=== PATIENT | female | born 1960 | race Caucasian/White ===

== ENCOUNTER → 2017-11-02 07:11 | Outpatient (CLI) | payer MEDICARE, MEDICAID, SELFPAY ==
[2017-11-02 08:37] LABS: Creatinine Urine Random 265.7 mg/dL
[2017-11-02 08:42] LABS: Microalbumin Urine Random 3.2 mg/dL (0-1.6)
[2017-11-02 08:46] LABS: Hemoglobin A1C% w Est Avg Glu 6.2 % (4.0-6.0)
[2017-11-02 08:53] LABS: Alanine Aminotransferase 21 IU/L (9-52); Albumin 4.1 g/dL (3.5-5.0); Albumin Globulin Ratio 1.4 (1.0-2.8); Alkaline Phosphatase 105 U/L (38-126); Aspartate Aminotransferase 12 IU/L (14-36); BUN Creatinine Ratio 31.7 (6-22); Bilirubin Total 0.4 mg/dL (0.2-1.3); Blood Urea Nitrogen 19 mg/dL (7-17); Calcium 9.6 mg/dL (8.4-10.2); Carbon Dioxide 30 mmol/L (22-32); Chloride 98 mmol/L (98-107); Estimated Glomerular Filt Rate > 60.0 mL/min (>60); Glucose 226 mg/dL (70-100); HEMOLYSIS < 15 (0-50); Potassium 4.6 mmol/L (3.4-5.1); Sodium 138 mmol/L (137-145); Total Protein 7.1 g/dL (6.3-8.2)
== END ==
PROVIDERS: PCP Internal Medicine; Visit Provider Internal Medicine
DX: G89.4 Chronic pain syndrome (principal); I10 Essential (primary) hypertension; E11.9 Type 2 diabetes mellitus without complications
CPT/HCPCS: 36415; 80053; 82043; 82570; 83036

== ENCOUNTER → 2017-11-25 12:12 | Outpatient (CLI) | payer MEDICARE, MEDICAID, SELFPAY ==
[2017-11-25 14:11] LABS: Campylobacter Not Detected (Not Detect); Clostridium difficile toxin AB Not Detected (Not Detect); Plesiomonsa shigelloides Not Detected (Not Detect); Salmonella Not Detected (Not Detect); Vibrio Not Detected (Not Detect); Vibrio cholerae Not Detected (Not Detect); Yersinia enterocolitica Not Detected (Not Detect)
[2017-11-25 14:12] LABS: Adenovirus F 40/41 Not Detected (Not Detect); Astrovirus Not Detected (Not Detect); Cryptosporidium Not Detected (Not Detect); Cyclospora cayetanensis Not Detected (Not Detect); Entamoeba histolytica Not Detected (Not Detect); Enteroaggregative E.coli Not Detected (Not Detect); Enteropathogenic E.coli Not Detected (Not Detect); Enterotoxigenic E.coli It/st Not Detected (Not Detect); Giardia lamblia Not Detected (Not Detect); Norovirus GI/GII Not Detected (Not Detect); Rotavirus A Not Detected (Not Detect); Shiga-like toxin-prod E.coli Not Detected (Not Detect); Shigella/Enteroinvasive E.coli Not Detected (Not Detect)
== END ==
PROVIDERS: Family Provider Internal Medicine; PCP Internal Medicine; Visit Provider Physician Assistant
DX: R19.7 Diarrhea, unspecified (principal)
CPT/HCPCS: 87507

== ENCOUNTER 2017-11-27 08:16 | Emergency (ER) | payer MEDICARE, MEDICAID, SELFPAY ==
[2017-11-27 08:24] VITALS: BP 186/97; PULSE 90; RESP 18; TEMP 36.1; O2SAT 97; BMI 52.4
--- NOTE | 2017-11-27 08:38 | ED.NAVMDI ---
HPI - Nausea/Vomiting/Diarrhea General Chief complaint: Nausea/Vomiting/Diarrhea Stated complaint: DIARRHEA, CANT KEEP ANYTHING DOWN Time Seen by Provider: 11/27/17 08:27 Source: patient Mode of arrival: ambulatory Limitations: no limitations History of Present Illness HPI Narrative: 57-year-old insulin-dependent diabetic female here for evaluation of approximately 10 days of diarrhea. Patient states that she has no nausea and no vomiting. She states that she has had diarrhea for the past 10 days. Multiple times a day. States she has tried Imodium for the 1st couple days and also has tried yogurt. She states that anything that she eats or drinks ?goes right through me? saw her primary doctor couple days ago for had stool studies performed does not know the results of these. No recent travel. No recent antibiotics. No fevers. No rashes. No new joint pain. No new medicines. Related Data Home Medications Medication Instructions Recorded Confirmed ASPIRIN (#ASPIRIN) 81 mg PO QDAY #0 08/27/11 LISINOPRIL (#ZESTRIL) 20 mg PO QDAY #0 08/27/11 metformin 1,000 mg PO BID #0 08/27/11 trazodone 150 mg PO HS #0 08/27/11 diclofenac sodium 50 mg PO BIDCC #0 01/01/17 hydrocodone-acetaminophen 0 tab PO #0 01/01/17 pioglitazone [Actos] 15 mg PO QDAY #0 01/01/17 pioglitazone [Actos] 30 mg PO QDAY #0 01/01/17 Allergies Allergy/AdvReac Type Severity Reaction Status Date / Time No Known Drug Allergies Allergy Verified 11/27/17 08:24 Review of Systems Constitutional Reports body ache(s) and Reports fatigue ENT Ears, Nose, Mouth, and Throat: Denies dysphagia Cardiovascular Denies chest pain and Denies dyspnea Respiratory Denies dyspnea Gastrointestinal Gastrointestinal: Denies abdominal pain, Denies melena, Denies change in bowel habits, Reports change in stool character, Denies constipation, Denies dysphagia, Reports diarrhea, Denies nausea and Denies vomiting Genitourinary Denies dysuria Musculoskeletal Denies abnormal gait, Denies myalgias and Denies arthralgias Integumentary/Breasts Denies lesions and Denies rash Neurologic Denies abnormal gait Endocrine Reports fatigue Hematologic/Lymphatic Denies easy bleeding and Denies easy bruising [facility] Social History Smoking Status: Current every day smoker Exam Initial Vital Signs Initial Vital Signs: Vital Signs Temperature 97.0 F L 11/27/17 08:24 Pulse Rate 90 11/27/17 08:24 Respiratory Rate 18 11/27/17 08:24 Blood Pressure 186/97 H 11/27/17 08:24 Pulse Oximetry 97 11/27/17 08:24 Const General: cooperative, healthy appearing and comfortable [facility] Head: normal to inspection, normocephalic and atraumatic Resp Effort & Inspection: normal respiratory effort Auscultation: clear to auscultation bilaterally Cardio Rate: regular rate Rhythm: regular rhythm GI Inspection: non-distended Palpation: soft, No firm, No guarding, No rigid and No tender Skin Lesions: no lesions Rashes: no rashes Neuro General: alert, awake and oriented x3 Extrem General: normal to inspection and full ROM Course Orders Ordered: Sodium Chloride (Normal Saline 0.9%) 1,000 mls @ 1,000 mls/hr IV BOLUS ONE Stop: 11/27/17 10:39 Last Admin: 11/27/17 09:47 Dose: 1,000 mls/hr Discontinued Medications Sodium Chloride (Normal Saline 0.9%) 1,000 mls @ 1,000 mls/hr IV BOLUS ONE Stop: 11/27/17 09:33 Last Infusion: 11/27/17 09:36 Dose: 0 mls/hr Admin: 11/27/17 08:42 Dose: 1,000 mls/hr Vital Signs - 8 hr 11/27/17 08:24 11/27/17 09:32 Temperature 97.0 F L 97.4 F L Pulse Rate 90 76 Respiratory Rate 18 18 Blood Pressure 186/97 H Blood Pressure [Left Arm] 153/86 H Pulse Oximetry 97 95 MDM - Nausea/Vomiting/Diarrhea MDM Narrative Medical decision making narrative: Patient is tolerating oral intake. Has a benign abdominal exam. Did urinate here in the emergency department. Has not had a bowel movement since being here in the emergency department. Received 2 L of normal saline through the IV and states she feels better. Reviewed the stool studies that was ordered by her primary doctor a couple days ago. No signs of bacterial infection. Will hold on any antibiotics for now. We did discuss the proper use of Imodium. We did discuss the importance of staying hydrated. She was given return precautions. She will call her primary doctor on Wednesday for follow-up. She expressed understanding and agreement with plan. Discharge Plan Departure Patient Disposition: Home, Self-Care Clinical Impression: Diarrhea Instructions: Diarrhea (Alternative Therapy), Diarrhea Activity Restrictions/Additional Instructions: Make sure you are increasing your fluid intake. Take the Imodium like we discussed and as directed from the packaging. Call your primary doctor on Wednesday for a follow-up. Return to the emergency department for any new symptoms, blood in her stool, fevers, vomiting, or any other new symptoms. Prescriptions: No Action ASPIRIN (#ASPIRIN) 81 mg PO QDAY Qty: 0 RF: 0 metformin 1,000 MG tablet extended release 24hr 1,000 mg PO BID Qty: 0 RF: 0 LISINOPRIL (#ZESTRIL) 20 mg PO QDAY Qty: 0 RF: 0 trazodone 150 MG tablet 150 mg PO HS Qty: 0 RF: 0 hydrocodone-acetaminophen 5 MG/325 MG tablet PO Qty: 0 RF: 0 pioglitazone [Actos] 15 MG tablet 15 mg PO QDAY Qty: 0 RF: 0 diclofenac sodium 50 MG tablet,delayed release (DR/EC) 50 mg PO BIDCC Qty: 0 RF: 0 pioglitazone [Actos] 30 MG tablet 30 mg PO QDAY Qty: 0 RF: 0
[2017-11-27] MEDS: SODIUM CHLORIDE 0.9% 1,000 ML 1000 ML IV ×2 (08:42→09:47)
[2017-11-27 09:32] VITALS: BP 153/86; PULSE 76; RESP 18; TEMP 36.3; O2SAT 95
--- NOTE | 2017-11-27 09:50 | PC.NURSE ---
Amb to [facility] to have diarrhea. Stable. 2nd bag of saline up per MD order and PT req. S/W pt about need to stay hydrated once dc'd.
[2017-11-27 10:41] VITALS: BP 136/51; PULSE 73; RESP 18; O2SAT 97
== END 2017-11-27 10:42 | disposition home or self-care (01) ==
PROVIDERS: Emergency Provider Emergency Medicine; Family Provider Physician Assistant; PCP Internal Medicine
DX: R19.7 Diarrhea, unspecified (principal)
CPT/HCPCS: 96360; 96361; 99283; 99284

== ENCOUNTER 2017-12-14 11:56 | Emergency (ER) | payer MEDICARE, MEDICAID, SELFPAY ==
[2017-12-14 12:08] VITALS: BP 172/80; PULSE 80; RESP 14; TEMP 36.6; O2SAT 97
[2017-12-14] MEDS: SODIUM CHLORIDE 0.9% 1,000 ML 1000 ML IV (12:47)
[2017-12-14 12:48] LABS: Add Manual Diff / Slide Review NO; Basophils Percent Auto 0.5 % (0-2); Eosinophils Percent Auto 1.6 % (2-4); Hematocrit 36.3 % (36-46); Hemoglobin 12.6 g/dL (12.0-16.0); Lymphocytes Percent Auto 25.9 % (25-40); Mean Corpuscular HGB Conc 34.8 % (30-36); Mean Corpuscular Hemoglobin 29.5 PG (26-34); Mean Corpuscular Volume 84.9 fL (80-100); Monocytes Percent Auto 8.2 % (3-14); Neutrophils Absolute Auto 6500 /uL (3000-5900); Neutrophils Percent Auto 63.8 % (50-75); Platelet Count 367 X10^3/uL (150-400); Red Blood Cell Count 4.27 X10^6/uL (4.0-5.2); Red Cell Distribution Width 13.2 % (11.6-14.8); White Blood Cell Count 10.2 X10^3/uL (4.5-11.0)
--- NOTE | 2017-12-14 12:52 | ED_ITS ---
HPI - Weakness General Chief complaint: Weakness Stated complaint: NAUSEA AND SWEATING, THINKS DEHYDRATED Time Seen by Provider: 12/14/17 12:39 Source: patient Mode of arrival: ambulatory Limitations: no limitations History of Present Illness HPI Narrative: 57-year-old female who was recently diagnosed with colitis/ enteritis who states that the diarrhea has resolved here for evaluation of nausea. Patient states she is not having any vomiting. Has had some episodes of sweating but no specific fevers. Is tolerating oral intake. She states she is urinating quite a bit because of all the fluids that she is drinking. Is able to tolerate food which does improve the nausea but then it returns shortly afterwards. Patient is not on any nausea medication at home. Related Data Home Medications Medication Instructions Recorded Confirmed aspirin 81 mg PO DAILY #0 08/27/11 12/14/17 lisinopril 20 mg PO DAILY #0 08/27/11 12/14/17 metformin 1,000 mg PO BID #0 08/27/11 12/14/17 trazodone 150 mg PO HS #0 08/27/11 12/14/17 diclofenac sodium 50 mg PO BIDCC #0 01/01/17 12/14/17 pioglitazone [Actos] 15 mg PO QDAY #0 01/01/17 12/14/17 pioglitazone [Actos] 30 mg PO QDAY #0 01/01/17 12/14/17 albuterol sulfate [Ventolin HFA] 1 - 2 puff INHALATION Q4-6H PRN 12/14/17 carisoprodol 1 tab PO BID PRN 12/14/17 12/14/17 diclofenac sodium [Voltaren] 1 applic TOPICAL DIRECTED 12/14/17 12/14/17 estradiol 1 mg PO DAILY 12/14/17 12/14/17 gabapentin 1 dose PO DIRECTED 12/14/17 12/14/17 hydrocodone-acetaminophen 1 tab PO TID PRN 12/14/17 12/14/17 hydroxyzine pamoate 1 cap PO TID PRN 12/14/17 12/14/17 meloxicam 15 mg PO DAILY 12/14/17 12/14/17 omeprazole 20 mg PO DAILY 12/14/17 12/14/17 simvastatin 20 mg PO DAILY 12/14/17 12/14/17 Previous Rx's Medication Instructions Recorded ondansetron [Zofran ODT] 4 mg PO Q6-8H PRN #20 tab 12/14/17 Allergies Allergy/AdvReac Type Severity Reaction Status Date / Time No Known Drug Allergies Allergy Verified 11/27/17 08:24 Review of Systems Constitutional Reports chills, Reports fever(s) (Subjective) and Denies poor appetite Cardiovascular Denies chest pain, Denies diaphoresis and Denies dyspnea Respiratory Denies dyspnea Gastrointestinal Gastrointestinal: Denies abdominal pain, Denies constipation, Denies diarrhea, Reports nausea and Denies vomiting Genitourinary Denies dysuria Musculoskeletal Denies myalgias and Denies arthralgias Neurologic Denies confusion Psychiatric Denies confusion [facility] Social History Smoking Status: Current every day smoker Exam Initial Vital Signs Initial Vital Signs: Vital Signs Temperature 97.9 F 12/14/17 12:08 Pulse Rate 80 12/14/17 12:08 Respiratory Rate 14 12/14/17 12:08 Blood Pressure 172/80 H 12/14/17 12:08 Pulse Oximetry 97 12/14/17 12:08 Const General: cooperative, healthy appearing, comfortable, well developed, well groomed, No acute distress and No anxious Orientation: alert, awake and oriented x3 HENMT Head: normal to inspection and normocephalic Mouth: oral mucosae normal Resp Effort & Inspection: normal respiratory effort Auscultation: clear to auscultation bilaterally Cardio Rate: regular rate Rhythm: regular rhythm Back/Spine/Pelvis Back: No CVA tenderness Skin General: no rashes or lesions noted Lesions: no lesions Rashes: no rashes Neuro General: alert, awake and oriented x3 Extrem General: normal to inspection Course Orders Ordered: ED Orders 12/14/17 12:20 Basic Metabolic Panel Stat Complete Blood Count AUTO DIFF Stat Discontinued Medications Sodium Chloride (Normal Saline 0.9%) 1,000 mls @ 1,000 mls/hr IV BOLUS ONE Stop: 12/14/17 13:39 Last Infusion: 12/14/17 13:31 Dose: 0 mls/hr Admin: 12/14/17 12:47 Dose: 1,000 mls/hr Vital Signs - 8 hr 12/14/17 12:08 12/14/17 13:31 Temperature 97.9 F Pulse Rate 80 82 Respiratory Rate 14 16 Blood Pressure 172/80 H 170/82 H Pulse Oximetry 97 97 MDM - Weakness Lab Data Attestation: I reviewed the patient's lab results. Result diagrams: 12/14/17 12:20 12/14/17 12:20 Lab Results 12/14/17 12/14/17 Range/Units 12:20 12:20 WBC 10.2 (4.5-11.0) X10^3/uL RBC 4.27 (4.0-5.2) X10^6/uL Hgb 12.6 (12.0-16.0) g/dL Hct 36.3 (36-46) % MCV 84.9 (80-100) fL MCH 29.5 (26-34) PG MCHC 34.8 (30-36) % RDW 13.2 (11.6-14.8) % Plt Count 367 (150-400) X10^3/uL Neut % (Auto) 63.8 (50-75) % Lymph % (Auto) 25.9 (25-40) % [place] % (Auto) 8.2 (3-14) % Eos % (Auto) 1.6 L (2-4) % Baso % (Auto) 0.5 (0-2) % Neut # (Auto) 6500 H (2509-6196) /uL Sodium 140 (137-145) mmol/L Potassium 3.7 (3.4-5.1) mmol/L Chloride 100 (98-107) mmol/L Carbon Dioxide 31 (22-32) mmol/L BUN 14 (7-17) mg/dL Creatinine 0.60 (0.52-1.04) mg/dL Estimated GFR > 60.0 (>60) mL/min BUN/Creatinine Ratio 23.3 H (6-22) Glucose 140 H (70-100) mg/dL Calcium 9.5 (8.4-10.2) mg/dL [facility] Narrative Medical decision making narrative: Patient is clinically not dehydrated. Has normal vital signs. Has been tolerating oral intake. Has no complaints other than the nausea and sweating. Patient does not have any nausea medication at home. Labs are unremarkable. Will send home with a prescription for nausea medication. She was given return precautions. Will hold on IV fluids for now. Patient expressed understanding and agreement with plan Discharge Plan Departure Patient Disposition: Home, Self-Care Clinical Impression: Nausea Discharge Date/Time: 12/14/17 13:32 Interventions: ED Discharge Assessment Last Done: 12/14/17 13:31 Instructions: Nausea (Alternative Therapy), DI for Nausea -- Adult Activity Restrictions/Additional Instructions: Continue all of your medications as directed. Continue to advance your diet like we discussed. Return to the emergency department for any new or worsening symptoms. Prescriptions: New ondansetron [Zofran ODT] 4 mg tablet,disintegrating 4 mg PO Q6-8H PRN (Reason: nausea and vomiting) Qty: 20 RF: 0 No Action aspirin 81 mg Tablet,Delayed Release (Dr/Ec) 81 mg PO DAILY Qty: 0 RF: 0 lisinopril 20 mg Tablet 20 mg PO DAILY Qty: 0 RF: 0 metformin 1,000 MG tablet extended release 24hr 1,000 mg PO BID Qty: 0 RF: 0 trazodone 150 MG tablet 150 mg PO HS Qty: 0 RF: 0 pioglitazone [Actos] 15 MG tablet 15 mg PO QDAY Qty: 0 RF: 0 diclofenac sodium 50 MG tablet,delayed release (DR/EC) 50 mg PO BIDCC Qty: 0 RF: 0 pioglitazone [Actos] 30 MG tablet 30 mg PO QDAY Qty: 0 RF: 0 carisoprodol 350 mg tablet 1 tab PO BID PRN (Reason: Spasms) RF: 0 gabapentin 600 mg tablet 1 dose PO DIRECTED RF: 0 hydrocodone-acetaminophen 5-325 mg tablet 1 tab PO TID PRN (Reason: Pain, Moderate) RF: 0 meloxicam 15 mg tablet 15 mg PO DAILY RF: 0 estradiol 1 mg tablet 1 mg PO DAILY RF: 0 simvastatin 20 mg tablet 20 mg PO DAILY RF: 0 omeprazole 20 mg capsule,delayed release(DR/EC) 20 mg PO DAILY RF: 0 albuterol sulfate [Ventolin HFA] 90 mcg/actuation HFA aerosol inhaler 1 - 2 puff Inhalation Q4-6H PRN (Reason: Shortness Of Breath) RF: 0 hydroxyzine pamoate 25 mg capsule 1 cap PO TID PRN (Reason: unknown) RF: 0 diclofenac sodium [Voltaren] 1 % gel 1 applic Topical DIRECTED RF: 0
[2017-12-14 12:55] LABS: BUN Creatinine Ratio 23.3 (6-22); Blood Urea Nitrogen 14 mg/dL (7-17); Calcium 9.5 mg/dL (8.4-10.2); Carbon Dioxide 31 mmol/L (22-32); Chloride 100 mmol/L (98-107); Estimated Glomerular Filt Rate > 60.0 mL/min (>60); Glucose 140 mg/dL (70-100); HEMOLYSIS < 15 (0-50); Potassium 3.7 mmol/L (3.4-5.1); Sodium 140 mmol/L (137-145)
[2017-12-14 13:31] VITALS: BP 170/82; PULSE 82; RESP 16; O2SAT 97
== END 2017-12-14 13:32 | disposition home or self-care (01) ==
PROVIDERS: Emergency Provider Emergency Medicine; Family Provider Physician Assistant; PCP Internal Medicine
DX: R11.0 Nausea (principal)
CPT/HCPCS: 36591; 80048; 85025; 96360; 99283; 99284

== ENCOUNTER → 2018-02-03 07:58 | Outpatient (CLI) | payer MEDICARE, MEDICAID, SELFPAY ==
[2018-02-03 09:20] LABS: Hemoglobin A1C% w Est Avg Glu 8.5 % (4.0-6.0)
[2018-02-03 09:49] LABS: Alanine Aminotransferase 20 IU/L (9-52); Albumin Globulin Ratio 1.3 (1.0-2.8); Alkaline Phosphatase 104 U/L (38-126); Aspartate Aminotransferase 26 IU/L (14-36); Bilirubin Total 0.3 mg/dL (0.2-1.3); Blood Urea Nitrogen 18 mg/dL (7-17); Calcium 9.4 mg/dL (8.4-10.2); Carbon Dioxide 30 mmol/L (22-32); Chloride 102 mmol/L (98-107); Estimated Glomerular Filt Rate > 60.0 mL/min (>60); Glucose 217 mg/dL (70-100); HEMOLYSIS < 15 (0-50); Potassium 4.1 mmol/L (3.4-5.1); Sodium 142 mmol/L (137-145)
== END ==
PROVIDERS: PCP Internal Medicine; Visit Provider Internal Medicine
DX: G89.4 Chronic pain syndrome (principal); J45.998 Other asthma; E11.9 Type 2 diabetes mellitus without complications
CPT/HCPCS: 36415; 80053; 83036

== ENCOUNTER → 2018-02-04 14:17 | Outpatient (CLI) | payer MEDICARE, MEDICAID, SELFPAY ==
--- NOTE | 2018-02-04 | DI.MRI.S_ITS ---
PROCEDURE: MR LUMBAR SPINE WO CON INDICATIONS: Low back pain radiating down both legs TECHNIQUE: Noncontrast sagittal T1 spin echo and T2 fast echo, sagittal STIR, axial T1 and T2 fast spin echo through the lumbar spine. In cases with scoliosis, additional coronal T2 fast spin echo may be performed. COMPARISON: [facility], MR, L-SPINE WITHOUT CONTRAST, 02/14/2016, 16:15. [facility], CR, L-SPINE 2-3 VIEWS, 03/13/2013, 10:35. FINDINGS: Image quality: Excellent. Alignment and Curvature: Grade 1 anterolisthesis is seen at L5-S1. Associated faintly seen bilateral pars defects are present. Bone Marrow: Marrow is of normal overall signal. No acute vertebral body compression fractures. Spinal Cord: Conus medullaris terminates at the L1 level. Visualized cord demonstrates normal signal and size. Paraspinous Soft Tissues: No paravertebral masses. T12-L1: Mild loss of disc height is seen. Loss of disc signal is seen. Moderate disc bulge is seen, which is eccentric left. There is a left foraminal disc protrusion present. There is at least moderate left-sided neural foraminal narrowing. No right-sided neural foraminal narrowing is seen. Mild central canal narrowing is seen. No significant change from the prior. L1-L2: Moderate loss of disc height is seen. Loss of disc signal is seen. Moderate disc bulge is seen, which is eccentric the left. There is a central/left disc protrusion seen. There is moderate left-sided and minimal to mild right-sided neural foraminal narrowing seen. Moderate central canal narrowing seen. Compared to 2016, these degenerative changes are similar. L2-L3: The disc height is well-preserved. Loss of disc signal is seen at this level. Mild generalized disc bulge is seen. There is mild to moderate left-sided and no right-sided neural foraminal narrowing seen. No significant central canal narrowing is seen. When comparison is made with the prior examination, these findings are similar. L3-L4: The disc height is well-preserved. Loss of disc signal is seen at this level. Mild to moderate disc bulge is seen. There is mild right-sided and no significant left-sided neural foraminal narrowing seen. Minimal central canal narrowing is seen. When comparison is made with the prior examination, these findings are similar. L4-L5: The disc height is well-preserved. Loss of disc signal is seen at this level. Moderate disc bulge is seen, which is eccentric to the right. Moderate facet joint hypertrophy is seen. There is moderate right-sided and mild to moderate left-sided neural foraminal narrowing. Mild central canal narrowing is seen. Stable from the prior study. L5-S1: Moderate loss of disc height is seen. Loss of disc signal is seen. Reactive marrow endplate changes are seen, which demonstrate mixed T1 weighted and T2-weighted signal, and are attributed to a combination of edema and fatty metaplasia (Modic type I and Modic type II changes). Mild grade 1 anterolisthesis is seen, with associated bilateral pars defects. At least moderate disc bulge is seen, which is eccentric to the left. Moderate facet joint hypertrophy is seen. Moderate to severe bilateral neural foraminal narrowing is seen, left worse than right. There is a degree of impingement seen upon the exiting nerve roots. These degenerative changes have progressed compared to the prior MRI. IMPRESSION: Multilevel lumbar spine degenerative change are seen, which are most prominent at L5-S1 level. The degenerative changes have progressed compared to the 2016 MRI at the L5-S1 level. Dictated by: Luis Pelletier M.D. on 02/04/2018 at 15:58 Approved by: Luis Pelletier M.D. on 02/04/2018 at 16:05
== END ==
PROVIDERS: Family Provider Physician Assistant; PCP Internal Medicine; Visit Provider Physical Medicine & Rehabilitation Pain Medicine
DX: M51.16 Intervertebral disc disorders with radiculopathy, lumbar region (principal); M51.17 Intervertebral disc disorders with radiculopathy, lumbosacral region; M54.5 Low back pain
CPT/HCPCS: 72148

== ENCOUNTER → 2018-03-16 07:47 | Outpatient (CLI) | payer MEDICARE, MEDICAID, SELFPAY ==
--- NOTE | 2018-03-16 | DI.MG.S_ITS ---
BILATERAL DIGITAL SCREENING MAMMOGRAM 3D/2D WITH CAD: 03/16/2018 CLINICAL: Routine screening. No prior exams were available for comparison. There are scattered fibroglandular elements in both breasts. Current study was also evaluated with a Computer Aided Detection (CAD) system. There are benign calcifications in both breasts. No significant masses, calcifications, or other findings are seen in either breast. IMPRESSION: There is no mammographic evidence of malignancy. A 1 year screening mammogram is recommended.(03/17/2019) This exam was interpreted at Station ID: [id number]. NOTE: For mammograms, a report in lay terms will be sent to the patient. Approximately 15% of breast malignancies will not be visualized mammographically. In the management of a palpable breast mass, a negative mammogram must not discourage biopsy of a clinically suspicious lesion. Electronically Signed By: Isidro collins/courtney:03/16/2018 08:46:46 letter sent: Normal Exam ACR BI-RADS Category 2: Benign Finding(s) 3342F
== END ==
PROVIDERS: PCP Internal Medicine; Visit Provider Internal Medicine
DX: Z12.31 Encounter for screening mammogram for malignant neoplasm of breast (principal)
CPT/HCPCS: 77063; 77067

== ENCOUNTER → 2018-04-22 13:11 | Outpatient (CLI) | payer MEDICARE, MEDICAID, SELFPAY ==
--- NOTE | 2018-04-22 14:51 | PM.TREADMILL ---
Cardiac Stress Test Report Referral & Results Date Patient Seen: 04/22/18 Requesting provider: Joe Radford Indication: Chest pain Rest ECG: Unremarkable Procedure Note: After both written and verbal informed consent the patient had an IV started by the diagnostic imaging RN and then was hooked up to the treadmill monitoring system. The patient was placed on the treadmill at 1 mile an hour with no elevation and was then injected with the [place] scan material. The Cardiolite was then immediately administered. The patient spent an additional 2-3 minutes on the treadmill before being returned to the [facility] in the supine position. The patient had a normal response to all infused materials. Patient was quickly tachycardic peaking heart rate at 150. Impression: Patient clearly with very very limited exercise capacity Otherwise unremarkable Lexiscan Cardiolite test. Please see perfusion imaging for details regarding possible ischemia. Please note: Actual ECG tracings can be found in the PACS system.
--- NOTE | 2018-04-25 18:02 | DI.NM.S_ITS ---
DATE OF SERVICE: 04/22/2018 PROCEDURE: Pharmacological perfusion study. INDICATIONS: Chest pain with underlying diabetes mellitus, hypertension, hyperlipidemia, morbid obesity, history of tobacco abuse, family history of coronary artery disease. RADIOPHARMACEUTICAL: 24.4 mCi technetium-99m Myoview IV was injected at stress and 25.6 mCi technetium-99m Myoview IV was injected at rest. CARDIAC STRESS: Patient underwent IV Lexiscan perfusion study under the supervision of an attending staff. She walked as well. She remained hemodynamically stable. Peak blood pressure was 190/80. With minimum exercise, heart rate went up to 148 beats per minute. Baseline rhythm sinus. There was poor R-wave progression. Stress EKG did not reveal any inducible ischemic changes. There were no significant arrhythmias. No significant symptoms during Lexiscan. RAW DATA: There was increase of diaphragmatic activity as well as breast shadow seen. Patient's weight is 308 pounds. GATED STUDY: Stress LV ejection fraction 71% without any obvious wall motion abnormalities. TID ratio is 1.2 but it is a pharmacological perfusion study. Resting end-diastolic volume is 154 mL. Lung/heart ratio is 0.30, which is within normal limits. MYOCARDIAL PERFUSION SCAN: Stress supine, resting supine, and stress prone images were compared to each other. Stress supine images reveal large-size, [id number] decreased perfusion of anterior wall, anteroapex as well as inferoapex and distal anteroseptum which got significantly improved during prone images. Prone images revealed some mild patchy decreased perfusion of anteroapex. Resting supine images revealed small-sized, mildly decreased perfusion of basal anterior wall as well as anteroapex. I don't see any significant reversible ischemia. CONCLUSION: This is a technically difficult study but I don't see any significant ischemic burden. Significant breast shadow seen during raw images. Patient's weight is 308 pounds. Most of the anterior wall defect as well as anteroapical and inferoapical defect seen during stress supine got improved during prone images with some remaining anteroapical defect which was persistent. This may be due to persistent breast tissue attenuation artifact. Clinical correlation is recommended. [facility] - [employer]/deon/ doc#: [id number]/job#: [id number] dd: 04/25/2018 17:00:00 dt: 04/25/2018 17:48:00 DICTATING MD/COPIES TO: Jovita Barajas MD COPIES MNE: BEAU
== END ==
PROVIDERS: PCP Internal Medicine; Visit Provider Internal Medicine
DX: R07.9 Chest pain, unspecified (principal); E11.9 Type 2 diabetes mellitus without complications; I10 Essential (primary) hypertension; E78.5 Hyperlipidemia, unspecified; E66.9 Obesity, unspecified; Z87.891 Personal history of nicotine dependence; Z82.49 Family history of ischemic heart disease and other diseases of the circulatory system
CPT/HCPCS: 78452; 93016; 93017; 93018; A9502; J2785

== ENCOUNTER → 2018-05-04 08:13 | Outpatient (CLI) | payer MEDICARE, MEDICAID, SELFPAY ==
[2018-05-04 10:12] LABS: Hemoglobin A1C% w Est Avg Glu 8.1 % (4.0-6.0)
[2018-05-04 10:20] LABS: Blood Urea Nitrogen 18 mg/dL (7-17); Calcium 9.5 mg/dL (8.4-10.2); Carbon Dioxide 27 mmol/L (22-32); Chloride 103 mmol/L (98-107); Estimated Glomerular Filt Rate > 60.0 mL/min (>60); Glucose 167 mg/dL (70-100); HEMOLYSIS < 15 (0-50); Potassium 4.2 mmol/L (3.4-5.1); Sodium 144 mmol/L (137-145)
== END ==
PROVIDERS: PCP Internal Medicine; Visit Provider Internal Medicine
DX: I10 Essential (primary) hypertension (principal); E11.9 Type 2 diabetes mellitus without complications
CPT/HCPCS: 36415; 80048; 83036

== ENCOUNTER 2018-07-12 17:49 | Emergency (ER) | payer MEDICARE, MEDICAID, SELFPAY ==
[2018-07-12 18:09] VITALS: BP 170/78; PULSE 97; RESP 16; O2SAT 97; BMI 49.9
--- NOTE | 2018-07-12 20:16 | ED.DENTAL ---
HPI - Dental/Oral <Kanchan Martinez PA-C - Last Filed: 07/12/18 21:51> General Chief complaint: Dental/Oral Stated complaint: BROKEN TOOTH, JAW SWELLING Time Seen by Provider: 07/12/18 18:55 Source: patient Mode of arrival: ambulatory Limitations: no limitations History of Present Illness HPI Narrative: This 58-year-old female comes in due to concern for dental infection. She states that 1 of her lower teeth cracked on Wednesday, but then yesterday started having throbbing, and states that she started noticing redness around her gums. She has not noted any drainage, but states it is quite tender around that tooth. She has not been able to find a dentist that accepts Medicare, but was advised by one office that she called she likely needs antibiotics and should come to ED. She states that she has had temperature up to 99. She has not had any earache or sinus pain or other new symptoms such as cough recently. She is already on [place] for her back pain. She states that she does not take any anti-inflammatories currently, denies h/o renal dysfunction. Related Data Home Medications Medication Instructions Recorded Confirmed aspirin 81 mg PO DAILY #0 08/27/11 12/14/17 lisinopril 20 mg PO DAILY #0 08/27/11 12/14/17 metformin 1,000 mg PO BID #0 08/27/11 12/14/17 trazodone 150 mg PO HS #0 08/27/11 12/14/17 diclofenac sodium 50 mg PO BIDCC #0 01/01/17 12/14/17 pioglitazone [Actos] 15 mg PO QDAY #0 01/01/17 12/14/17 pioglitazone [Actos] 30 mg PO QDAY #0 01/01/17 12/14/17 albuterol sulfate [Ventolin HFA] 1 - 2 puff INHALATION Q4-6H PRN 12/14/17 12/14/17 carisoprodol 1 tab PO BID PRN 12/14/17 12/14/17 diclofenac sodium [Voltaren] 1 applic TOPICAL DIRECTED 12/14/17 12/14/17 estradiol 1 mg PO DAILY 12/14/17 12/14/17 gabapentin 1 dose PO DIRECTED 12/14/17 12/14/17 hydrocodone-acetaminophen 1 tab PO TID PRN 12/14/17 12/14/17 hydroxyzine pamoate 1 cap PO TID PRN 12/14/17 12/14/17 meloxicam 15 mg PO DAILY 12/14/17 12/14/17 omeprazole 20 mg PO DAILY 12/14/17 12/14/17 simvastatin 20 mg PO DAILY 12/14/17 12/14/17 Previous Rx's Medication Instructions Recorded ondansetron [Zofran ODT] 4 mg PO Q6-8H PRN #20 tab 12/14/17 amoxicillin 500 mg PO Q8H #20 cap 07/12/18 Allergies Allergy/AdvReac Type Severity Reaction Status Date / Time No Known Drug Allergies Allergy Verified 07/12/18 18:09 Review of Systems <Kanchan Martinez PA-C - Last Filed: 07/12/18 21:51> Review of Systems ROS Unobtainable: All systems reviewed & are unremarkable except as noted in HPI and below Exam <EFFIE Do Last Filed: 07/12/18 21:51> Narrative Exam Narrative: GENERAL APPEARANCE: Patient sitting comfortably, in no distress. HEAD: No sinus TTP. EYES: PERRL, EOMI. EARS: Normal auditory canals, TMS intact with normal light reflexes. ORAL CAVITY: poor dentition. One of the right lower premolars is fractured, with tender tissue in around the tooth, slightly erythematous, no obvious edema or abscess. THROAT: Clear. NECK/THYROID: Neck supple, full range of motion, no cervical lymphadenopathy. LUNGS: Clear to auscultation bilaterally HEART: RRR without murmur, nl S1, S2, no S3 or S4. Initial Vital Signs Initial Vital Signs: Vital Signs Pulse Rate 97 H 07/12/18 18:09 Respiratory Rate 16 07/12/18 18:09 Blood Pressure 170/78 H 07/12/18 18:09 Pulse Oximetry 97 07/12/18 18:09 <Rosana Frank DO - Last Filed: 07/12/18 23:26> Initial Vital Signs Initial Vital Signs: Vital Signs Pulse Rate 97 H 07/12/18 18:09 Respiratory Rate 16 07/12/18 18:09 Blood Pressure 170/78 H 07/12/18 18:09 Pulse Oximetry 97 07/12/18 18:09 Course <Kanchan Martinez PA-C - Last Filed: 07/12/18 21:51> Orders Ordered: Discontinued Medications Amoxicillin (Trimox) 500 mg PO NOW ONE Stop: 07/12/18 20:28 Last Admin: 07/12/18 20:40 Dose: 500 mg Naproxen (Naprosyn) 500 mg PO NOW ONE Stop: 07/12/18 20:28 Last Admin: 07/12/18 20:40 Dose: 500 mg Vital Signs - 8 hr 07/12/18 18:09 07/12/18 21:10 Pulse Rate 97 H 79 Respiratory Rate 16 14 Blood Pressure 170/78 H Blood Pressure [Right Arm] 142/69 H Pulse Oximetry 97 95 <Rosana Frank DO - Last Filed: 07/12/18 23:26> Orders Ordered: Discontinued Medications Amoxicillin (Trimox) 500 mg PO NOW ONE Stop: 07/12/18 20:28 Last Admin: 07/12/18 20:40 Dose: 500 mg Naproxen (Naprosyn) 500 mg PO NOW ONE Stop: 07/12/18 20:28 Last Admin: 07/12/18 20:40 Dose: 500 mg Vital Signs - 8 hr 07/12/18 18:09 07/12/18 21:10 Pulse Rate 97 H 79 Respiratory Rate 16 14 Blood Pressure 170/78 H Blood Pressure [Right Arm] 142/69 H Pulse Oximetry 97 95 Discharge Plan Departure Patient Disposition: Home Clinical Impression: Dental infection, Fracture of tooth Discharge Date/Time: 07/12/18 21:15 Interventions: ED Discharge Assessment Last Done: 07/12/18 21:14 Instructions: DI for Dental Pain Activity Restrictions/Additional Instructions: we have given you a dose of amoxicillin here tonight, and I have sent a prescription for this into your pharmacy to [facility] tomorrow morning. We have also given you a dose of naproxen. You do have meloxicam on year old medicine list that you mention not taking any anti-inflammatory pain medicines any longer. If you are not taking any NSAIDs, it is okay to [facility] some [id number] Aleve (naproxen) and take 1 tablet twice daily for the next few days to help with pain and inflammation while you start the antibiotic. You can also use [id number] Ambesol (topical dental pain reliever). Please call [facility] tomorrow in [place] regarding making an appointment since you do not have dental insurance. please follow-up with your PCP if needed in the interim. Prescriptions: New amoxicillin 500 mg capsule 500 mg PO Q8H Qty: 20 RF: 0 No Action aspirin 81 mg Tablet,Delayed Release (Dr/Ec) 81 mg PO DAILY Qty: 0 RF: 0 lisinopril 20 mg Tablet 20 mg PO DAILY Qty: 0 RF: 0 metformin 1,000 MG tablet extended release 24hr 1,000 mg PO BID Qty: 0 RF: 0 trazodone 150 MG tablet 150 mg PO HS Qty: 0 RF: 0 pioglitazone [Actos] 15 MG tablet 15 mg PO QDAY Qty: 0 RF: 0 diclofenac sodium 50 MG tablet,delayed release (DR/EC) 50 mg PO BIDCC Qty: 0 RF: 0 pioglitazone [Actos] 30 MG tablet 30 mg PO QDAY Qty: 0 RF: 0 ondansetron [Zofran ODT] 4 mg tablet,disintegrating 4 mg PO Q6-8H PRN (Reason: nausea and vomiting) Qty: 20 RF: 0 carisoprodol 350 mg tablet 1 tab PO BID PRN (Reason: Spasms) RF: 0 gabapentin 600 mg tablet 1 dose PO DIRECTED RF: 0 hydrocodone-acetaminophen 5-325 mg tablet 1 tab PO TID PRN (Reason: Pain, Moderate) RF: 0 meloxicam 15 mg tablet 15 mg PO DAILY RF: 0 estradiol 1 mg tablet 1 mg PO DAILY RF: 0 simvastatin 20 mg tablet 20 mg PO DAILY RF: 0 omeprazole 20 mg capsule,delayed release(DR/EC) 20 mg PO DAILY RF: 0 albuterol sulfate [Ventolin HFA] 90 mcg/actuation HFA aerosol inhaler 1 - 2 puff Inhalation Q4-6H PRN (Reason: Shortness Of Breath) RF: 0 hydroxyzine pamoate 25 mg capsule 1 cap PO TID PRN (Reason: unknown) RF: 0 diclofenac sodium [Voltaren] 1 % gel 1 applic Topical DIRECTED RF: 0 Referrals: [facility], [facility] [Other] Joe Radford MD [Primary Care Provider] - <Rosana Frank DO - Last Filed: 07/12/18 23:26> Cosign ED Attending Cosignature Attestation: I was immediately available in the department for consultation. Documentation has been reviewed. I agree with assessment and plan.
[2018-07-12] MEDS: NAPROXEN 250 MG TABLET 500 MG PO (20:40)
[2018-07-12] MEDS: AMOXICILLIN 250 MG CAPSULE 500 MG PO (20:40)
[2018-07-12 21:10] VITALS: BP 142/69; PULSE 79; RESP 14; O2SAT 95
== END 2018-07-12 21:15 | disposition home or self-care (01) ==
PROVIDERS: Emergency Provider Internal Medicine; Family Provider Internal Medicine; PCP Internal Medicine
DX: K04.7 Periapical abscess without sinus (principal); S02.5XXA Fracture of tooth (traumatic), initial encounter for closed fracture
CPT/HCPCS: 99282; 99283

== ENCOUNTER → 2018-08-09 11:06 | Outpatient (CLI) | payer MEDICARE, MEDICAID, SELFPAY ==
--- NOTE | 2018-08-09 | DI.US.S_ITS ---
PROCEDURE: US PERIPH VENOUS LOW EXTREM RT INDICATIONS: RIGHT LEG PAIN TECHNIQUE: Real-time imaging, as well as color and pulse Doppler interrogation, were performed of the lower extremity deep veins from the inguinal ligament to the popliteal fossa. COMPARISON: None. FINDINGS: The deep veins are normally compressible, and free of intraluminal thrombus. Color and pulse Doppler demonstrate normal phasic intraluminal flow. There is normal augmentation response to distal compression maneuver. IMPRESSION: No DVT in the right lower extremity. Dictated by: Quinn Waller M.D. on 08/09/2018 at 12:13 Approved by: Quinn Waller M.D. on 08/09/2018 at 12:14
== END ==
PROVIDERS: PCP Internal Medicine; Visit Provider Internal Medicine
DX: M79.604 Pain in right leg (principal)
CPT/HCPCS: 93971

== ENCOUNTER 2018-10-15 09:21 | Emergency (ER) | payer MEDICARE, MEDICAID, SELFPAY ==
[2018-10-15 09:25] VITALS: BP 134/65; PULSE 77; RESP 14; TEMP 36.4; O2SAT 94
--- NOTE | 2018-10-15 10:30 | ED.EXTPRO ---
HPI - Extremity Problem General Chief complaint: Extremity Problem,Nontraumatic Stated complaint: Lf foot/numbness Time Seen by Provider: 10/15/18 10:20 Source: patient, family (Son) and other (Dr. Resendiz from [facility]) Mode of arrival: wheelchair Limitations: no limitations History of Present Illness HPI Narrative: 58-year-old female comes to the emergency department with complaint of pain in her left foot. States it started yesterday. It is pretty much the whole foot it does not radiate up the leg. She does have a history of neuropathy but she has not had a lot of problems with that. She states she does take Neurontin daily. Patient did not have any recent trauma, no injury she has not stepped funny on the foot. She has not noticed any skin color changes. She states it does seem a little bit more swollen than the other leg she does not have any pain into the calf or other leg. She does have diabetes. She has not had any fevers, no chest pain or shortness of breath. She has had a little bit of neck pain and tightness on the left side. She denies any new weakness. She states the toes feel numb she is able to move them and flex them fully and it is painful for her to weight bear. Related Data Home Medications Medication Instructions Recorded Confirmed aspirin 81 mg PO DAILY #0 08/27/11 12/14/17 lisinopril 20 mg PO DAILY #0 08/27/11 12/14/17 metformin 1,000 mg PO BID #0 08/27/11 12/14/17 trazodone 150 mg PO HS #0 08/27/11 12/14/17 diclofenac sodium 50 mg PO BIDCC #0 01/01/17 12/14/17 pioglitazone [Actos] 15 mg PO QDAY #0 01/01/17 12/14/17 pioglitazone [Actos] 30 mg PO QDAY #0 01/01/17 12/14/17 albuterol sulfate [Ventolin HFA] 1 - 2 puff INHALATION Q4-6H PRN 12/14/17 12/14/17 carisoprodol 1 tab PO BID PRN 12/14/17 12/14/17 diclofenac sodium [Voltaren] 1 applic TOPICAL DIRECTED 12/14/17 12/14/17 estradiol 1 mg PO DAILY 12/14/17 12/14/17 gabapentin 1 dose PO DIRECTED 12/14/17 12/14/17 hydrocodone-acetaminophen 1 tab PO TID PRN 12/14/17 12/14/17 hydroxyzine pamoate 1 cap PO TID PRN 12/14/17 12/14/17 meloxicam 15 mg PO DAILY 12/14/17 12/14/17 omeprazole 20 mg PO DAILY 12/14/17 12/14/17 simvastatin 20 mg PO DAILY 12/14/17 12/14/17 Previous Rx's Medication Instructions Recorded ondansetron [Zofran ODT] 4 mg PO Q6-8H PRN #20 tab 12/14/17 amoxicillin 500 mg PO Q8H #20 cap 07/12/18 Allergies Allergy/AdvReac Type Severity Reaction Status Date / Time No Known Drug Allergies Allergy Verified 10/15/18 09:41 Review of Systems Review of Systems ROS Unobtainable: All systems reviewed & are unremarkable except as noted in HPI and below Constitutional Denies fever(s) and Denies malaise Cardiovascular Denies chest pain, Reports pedal edema (left foot), Denies leg edema, Denies dyspnea and Denies dyspnea on exertion Respiratory Denies dyspnea, Denies dyspnea on exertion and Denies wheezing Gastrointestinal Gastrointestinal: Denies abdominal pain, Denies change in bowel habits, Denies diarrhea, Denies nausea and Denies vomiting Genitourinary Reports urinary incontinence (Chronic) Musculoskeletal Reports as per HPI, Denies arthralgias, Denies joint swelling, Denies limited range of motion, Reports muscle cramps (Sometimes in extremities), Reports numbness (Left foot) and Reports tingling Integumentary/Breasts Denies non-healing lesions, Denies erythema, Denies rash and Denies wounds Neurologic Reports as per HPI, Reports numbness (Left foot) and Reports tingling Allergic/Immunologic Denies wheezing PFSH Medical History Elevated lipids (Chronic) H/O: HTN (hypertension) (Chronic) History of asthma (Chronic) Hx of non-insulin dependent diabetes mellitus (Chronic) Surgical History S/P total knee replacement (Resolved) Status post appendectomy (Resolved) Status post hysterectomy (Resolved) Status post hysterectomy (Resolved) Family History (Updated 07/12/18 @ 20:36 by Kanchan Martinez PA-C) Other Family history non-contributory Social History Smoking Status: Current every day smoker Family History Other Family history non-contributory Social History Smoking Status: Current every day smoker Exam Narrative Exam Narrative: GENERAL: Alert and oriented x three, obese, well-appearing female in no acute distress. HEENT: Head normocephalic, atraumatic, EOMI, pupils reactive, face symmetric, moist mucous membranes NECK: Supple, full range of motion CARDIOVASCULAR: Regular rate and rhythm without murmurs, rubs or gallops. RESPIRATORY: Breath sounds equal bilaterally, no wheezes rales or rhonchi. ABDOMEN: Soft, nontender. Normoactive bowel sounds all 4 quadrants. No guarding or rebound, rigidity, no mass : No CVA tenderness EXTREMITIES: Normal range of motion, no clubbing. Difficult to say for sure but patient may have very mild swelling in the left foot in comparison to the right. There is no pitting edema. Patient has full range of motion. No bony tenderness to palpation. 2+ dorsalis pedis and tibialis. No redness, erythema or other skin changes. Neurovascularly intact. NEUROLOGICAL: Cranial nerves II through XII grossly intact. Moving all extremities SKIN: Warm, dry, no petechiae, no rashes or lesions. Initial Vital Signs Initial Vital Signs: Vital Signs Temperature 97.6 F 10/15/18 09:25 Pulse Rate 77 10/15/18 09:25 Respiratory Rate 14 10/15/18 09:25 Blood Pressure 134/65 10/15/18 09:25 Pulse Oximetry 94 10/15/18 09:25 Course Orders Ordered: ED Orders 10/15/18 10:38 XR foot LT min 3V Stat 10/15/18 11:10 Basic Metabolic Panel Stat Complete Blood Count AUTO DIFF Stat Vital Signs - 8 hr 10/15/18 12:29 Pulse Rate 78 Respiratory Rate 20 Blood Pressure 154/77 H Pulse Oximetry 97 MDM - Extremity (Nontraumatic) Lab Data Attestation: I reviewed the patient's lab results. Result diagrams: 10/15/18 11:10 10/15/18 11:10 Lab Results 10/15/18 10/15/18 Range/Units 11:10 11:10 WBC 9.9 (4.5-11.0) X10^3/uL RBC 4.02 (4.0-5.2) X10^6/uL Hgb 11.6 L (12.0-16.0) g/dL Hct 34.8 L (36-46) % MCV 86.5 (80-100) fL MCH 28.9 (26-34) PG MCHC 33.4 (30-36) % RDW 13.5 (11.6-14.8) % Plt Count 351 (150-400) X10^3/uL Neut % (Auto) 64.9 (50-75) % Lymph % (Auto) 26.1 (25-40) % [place] % (Auto) 7.5 (3-14) % Eos % (Auto) 1.0 L (2-4) % Baso % (Auto) 0.5 (0-2) % Neut # (Auto) 6400 (9710-0972) /uL Lymph # (Auto) 2600 (3967-8886) /uL [place] # (Auto) 700 (0-900) /uL Eos # (Auto) 100 (0-450) /uL Baso # (Auto) 100 (0-100) /uL Sodium 138 (137-145) mmol/L Potassium 3.9 (3.4-5.1) mmol/L Chloride 100 (98-107) mmol/L Carbon Dioxide 29 (22-32) mmol/L BUN 12 (7-17) mg/dL Creatinine 0.50 L (0.52-1.04) mg/dL Estimated GFR > 60.0 (>60) mL/min BUN/Creatinine Ratio 24.0 H (6-22) Glucose 171 H (70-100) mg/dL Calcium 9.0 (8.4-10.2) mg/dL Imaging Data foot xray: Radiologist's impression: [address] [address] XRay Report Signed Patient: Aurora Tomas [facility]#: [id number] : 1960Acct:[id number] Age/Sex: 58 / FDate of Service: 10/15/18 Loc: ED Accession Number: [id number] Procedure: XR foot LT min 3V Ordering Provider: Carol Thomason D.O. PROCEDURE: XR FOOT LT MIN 3V INDICATIONS: foot pain, no known trauma or obvious infection, whole foot TECHNIQUE: 3 views of the foot were acquired. COMPARISON: None. FINDINGS: Bones: No fractures or dislocations. No suspicious bony lesions. Large plantar calcaneal spur. Soft tissues: No tibiotalar joint effusion. Achilles tendon appears normal. IMPRESSION: Large plantar calcaneal spur. Dictated by: Salvador Norwood M.D. on 10/15/2018 at 11:11 Approved by: Salvador Norwood M.D. on 10/15/2018 at 11:13 MDM Narrative Medical decision making narrative: Patient has a large spur on the calcaneus although she complains of pain in her entire foot. Lab work does not show any major abnormalities that would point towards infection, she does not have any major changes towards her electrolytes. Her sugar is 171 which appears pretty consistent with her normals. she does not show any signs of DKA or hyperglycemia. Discussed with patient some scissors no clear obvious cause would have her follow up with her primary care. She can continue her hydrocodone at home. We did discuss signs and symptoms to watch for reasons to return emergently. She is on Neurontin/gabapentin daily 5 times. Discharge Plan Departure Patient Disposition: Home Clinical Impression: Calcaneal spur Discharge Date/Time: 10/15/18 12:29 Interventions: ED Discharge Assessment Last Done: 10/15/18 12:29 Instructions: DI for Foot Pain Activity Restrictions/Additional Instructions: Follow-up with primary care in the next 2-3 days for recheck. Call for an appointment Wednesday morning. Continue home medications as prescribed. Return to the emergency department for any new redness, increasing swelling, color changes such as cyanosis or pallor refer foot is blue or white, rapidly worsening pain or other new or concerning symptoms. Prescriptions: No Action aspirin 81 mg Tablet,Delayed Release (Dr/Ec) 81 mg PO DAILY Qty: 0 RF: 0 lisinopril 20 mg Tablet 20 mg PO DAILY Qty: 0 RF: 0 metformin 1,000 MG tablet extended release 24hr 1,000 mg PO BID Qty: 0 RF: 0 trazodone 150 MG tablet 150 mg PO HS Qty: 0 RF: 0 pioglitazone [Actos] 15 MG tablet 15 mg PO QDAY Qty: 0 RF: 0 diclofenac sodium 50 MG tablet,delayed release (DR/EC) 50 mg PO BIDCC Qty: 0 RF: 0 pioglitazone [Actos] 30 MG tablet 30 mg PO QDAY Qty: 0 RF: 0 ondansetron [Zofran ODT] 4 mg tablet,disintegrating 4 mg PO Q6-8H PRN (Reason: nausea and vomiting) Qty: 20 RF: 0 carisoprodol 350 mg tablet 1 tab PO BID PRN (Reason: Spasms) RF: 0 gabapentin 600 mg tablet 1 dose PO DIRECTED RF: 0 hydrocodone-acetaminophen 5-325 mg tablet 1 tab PO TID PRN (Reason: Pain, Moderate) RF: 0 meloxicam 15 mg tablet 15 mg PO DAILY RF: 0 estradiol 1 mg tablet 1 mg PO DAILY RF: 0 simvastatin 20 mg tablet 20 mg PO DAILY RF: 0 omeprazole 20 mg capsule,delayed release(DR/EC) 20 mg PO DAILY RF: 0 albuterol sulfate [Ventolin HFA] 90 mcg/actuation HFA aerosol inhaler 1 - 2 puff Inhalation Q4-6H PRN (Reason: Shortness Of Breath) RF: 0 hydroxyzine pamoate 25 mg capsule 1 cap PO TID PRN (Reason: unknown) RF: 0 diclofenac sodium [Voltaren] 1 % gel 1 applic Topical DIRECTED RF: 0 amoxicillin 500 mg capsule 500 mg PO Q8H Qty: 20 RF: 0 Referrals: Joe Radford MD [Primary Care Provider] -
--- NOTE | 2018-10-15 10:38 | DI.RAD.S_ITS ---
PROCEDURE: XR FOOT LT MIN 3V INDICATIONS: foot pain, no known trauma or obvious infection, whole foot TECHNIQUE: 3 views of the foot were acquired. COMPARISON: None. FINDINGS: Bones: No fractures or dislocations. No suspicious bony lesions. Large plantar calcaneal spur. Soft tissues: No tibiotalar joint effusion. Achilles tendon appears normal. IMPRESSION: Large plantar calcaneal spur. Dictated by: Salvador Norwood M.D. on 10/15/2018 at 11:11 Approved by: Salvador Norwood M.D. on 10/15/2018 at 11:13
[2018-10-15 11:15] LABS: Add Manual Diff / Slide Review NO; Basophils Absolute Auto 100 /uL (0-100); Basophils Percent Auto 0.5 % (0-2); Eosinophils Absolute Auto 100 /uL (0-450); Hematocrit 34.8 % (36-46); Hemoglobin 11.6 g/dL (12.0-16.0); Lymphocytes Absolute Auto 2600 /uL (1100-4500); Lymphocytes Percent Auto 26.1 % (25-40); Mean Corpuscular HGB Conc 33.4 % (30-36); Mean Corpuscular Hemoglobin 28.9 PG (26-34); Mean Corpuscular Volume 86.5 fL (80-100); Monocytes Absolute Auto 700 /uL (0-900); Monocytes Percent Auto 7.5 % (3-14); Neutrophils Absolute Auto 6400 /uL (1500-7000); Neutrophils Percent Auto 64.9 % (50-75); Platelet Count 351 X10^3/uL (150-400); Red Blood Cell Count 4.02 X10^6/uL (4.0-5.2); Red Cell Distribution Width 13.5 % (11.6-14.8); White Blood Cell Count 9.9 X10^3/uL (4.5-11.0)
[2018-10-15 11:26] LABS: Blood Urea Nitrogen 12 mg/dL (7-17); Carbon Dioxide 29 mmol/L (22-32); Chloride 100 mmol/L (98-107); Estimated Glomerular Filt Rate > 60.0 mL/min (>60); Glucose 171 mg/dL (70-100); HEMOLYSIS < 15 (0-50); Potassium 3.9 mmol/L (3.4-5.1); Sodium 138 mmol/L (137-145)
[2018-10-15 12:29] VITALS: BP 154/77; PULSE 78; RESP 20; O2SAT 97
== END 2018-10-15 12:29 | disposition home or self-care (01) ==
PROVIDERS: Emergency Provider Emergency Medicine; PCP Internal Medicine
DX: M77.30 Calcaneal spur, unspecified foot (principal)
CPT/HCPCS: 36415; 73630; 80048; 85025; 99282; 99284

== ENCOUNTER → 2018-11-04 10:47 | Outpatient (CLI) | payer MEDICARE, MEDICAID, SELFPAY ==
--- NOTE | 2018-11-04 | DI.RAD.S_ITS ---
PROCEDURE: XR CERVICAL SPINE 2V OR 3V INDICATIONS: NECK PAIN TECHNIQUE: 4 view(s) of the cervical spine were acquired. COMPARISON: [facility], SPINE CERVICAL 2 OR 3VW, 07/12/2014, 14:16. FINDINGS: Bones: No fractures or dislocations to the C6 level. The lateral masses of C1 appear intact on the odontoid view. No suspicious bony lesions. There is moderate degenerative disc disease at C4-C5, C5-C6 and C6-C7. Soft tissues: No prevertebral soft tissue swelling. IMPRESSION: Moderate degenerative disc disease. Dictated by: Quinn Waller M.D. on 11/04/2018 at 14:01 Approved by: Quinn Waller M.D. on 11/04/2018 at 14:03
== END ==
PROVIDERS: PCP Internal Medicine; Visit Provider Internal Medicine
DX: M50.321 Other cervical disc degeneration at C4-C5 level (principal)
CPT/HCPCS: 72040

== ENCOUNTER → 2018-12-15 06:23 | Outpatient (CLI) | payer MEDICARE, MEDICAID, SELFPAY ==
[2018-12-15 07:32] LABS: Add Manual Diff / Slide Review NO; Basophils Absolute Auto 0 /uL (0-100); Basophils Percent Auto 0.3 % (0-2); Eosinophils Absolute Auto 100 /uL (0-450); Eosinophils Percent Auto 1.5 % (2-4); Hematocrit 33.6 % (36-46); Hemoglobin 11.6 g/dL (12.0-16.0); Lymphocytes Absolute Auto 2500 /uL (1100-4500); Lymphocytes Percent Auto 26.9 % (25-40); Mean Corpuscular HGB Conc 34.5 % (30-36); Mean Corpuscular Hemoglobin 29.7 PG (26-34); Monocytes Absolute Auto 700 /uL (0-900); Monocytes Percent Auto 7.5 % (3-14); Neutrophils Absolute Auto 5900 /uL (1500-7000); Neutrophils Percent Auto 63.8 % (50-75); Platelet Count 384 X10^3/uL (150-400); Red Blood Cell Count 3.91 X10^6/uL (4.0-5.2); Red Cell Distribution Width 12.9 % (11.6-14.8); White Blood Cell Count 9.2 X10^3/uL (4.5-11.0)
[2018-12-15 07:47] LABS: Blood Urea Nitrogen 18 mg/dL (7-17); Calcium 9.2 mg/dL (8.4-10.2); Carbon Dioxide 29 mmol/L (22-32); Chloride 102 mmol/L (98-107); Cholesterol 171 mg/dL (140-199); Estimated Glomerular Filt Rate > 60.0 mL/min (>60); Glucose 167 mg/dL (70-100); HDL Cholesterol 40 mg/dL (40-60); HEMOLYSIS < 15 (0-50); LDL Cholesterol Calculated 76 mg/dL (<100); Sodium 139 mmol/L (137-145); Triglycerides 273 mg/dL (35-150)
[2018-12-15 08:18] LABS: TSH w/ Reflex to FT4 1.95 uIU/mL (0.47-4.68)
== END ==
PROVIDERS: PCP Internal Medicine; Visit Provider Internal Medicine
DX: R00.2 Palpitations (principal)
CPT/HCPCS: 36415; 80048; 80061; 84443; 85025

== ENCOUNTER → 2018-12-21 18:37 | Outpatient (CLI) | payer MEDICARE, MEDICAID, SELFPAY ==
--- NOTE | 2018-12-21 18:39 | DI.MRI.S_ITS ---
PROCEDURE: MR CERVICAL SPINE WO CON INDICATIONS: CERVICALGIA TECHNIQUE: Noncontrast sagittal T1 spin echo and T2 fast spin echo, sagittal STIR, foraminal oblique sagittal T2 fast spin echo, and axial gradient echo or T2 fast spin echo through the cervical spine. COMPARISON: [facility], CR, XR CERVICAL SPINE 2V OR 3V, 11/04/2018, 11:01. FINDINGS: Image quality: Excellent. Alignment and Curvature: There is loss of normal cervical lordosis. There is mild reactive signal within the endplates adjacent to the C4-C5, C5-C6, and C6-C7 intervertebral discs. Bone Marrow: Marrow demonstrates normal overall signal. Spinal Cord: Visualized spinal cord has normal size and signal. No cerebellar tonsillar herniation. Paraspinous Soft Tissues: No paravertebral masses. Prevertebral soft tissues are normal in thickness. C2-C3: Congenital canal stenosis. Mild disc desiccation. Moderate right and mild left facet hypertrophy. There is overall moderate canal stenosis. There is severe right and no left foraminal stenosis. Compression of the right C3 nerve root. C3-C4: Moderate disc desiccation. Mild diffuse disc bulge. Mild facet and uncovertebral hypertrophy bilaterally. Congenital canal stenosis. There is overall moderate canal stenosis. There is moderate bilateral foraminal stenosis. C4-C5: Moderate disc height loss and desiccation. Moderate diffuse disc bulge with superimposed broad-based left paracentral and posterolateral protrusion. Congenital canal stenosis. Moderate facet and uncovertebral hypertrophy bilaterally. Severe canal stenosis. Mild cord flattening. Severe left and moderate right foraminal stenosis. Compression of the left C5 nerve root. C5-C6: Congenital canal stenosis. Moderate disc height loss and desiccation. Moderate diffuse disc bulge. Moderate facet and uncovertebral hypertrophy bilaterally. Severe canal stenosis. Moderate cord flattening. Severe bilateral foraminal stenosis with bilateral C6 nerve root compression. C6-C7: Moderate disc height loss and desiccation. Moderate diffuse disc bulge. Congenital canal stenosis. Mild facet and uncovertebral hypertrophy bilaterally. Moderate to severe canal stenosis. Mild cord flattening. Severe left and moderate right foraminal stenosis. Left C7 nerve root compression. C7-T1: Disc desiccation. No significant canal, nor foraminal stenosis. IMPRESSION: 1. Diffuse congenital canal stenosis with superimposed disc and facet disease, as well as uncovertebral hypertrophy. 2. Multilevel canal stenoses, worst at C4-C5, C5-C6, and C6-C7, where there is cord flattening present as described above. 3. Multilevel foraminal stenoses, worst at C4-C5, C5-C6, and C6-C7, where there is associated intraforaminal nerve root compression. Recommend correlation with clinical symptoms to ascertain relevance of these findings. Dictated by: Tanisha Alvarado M.D. on 12/22/2018 at 9:37 Approved by: Tanisha Alvarado M.D. on 12/22/2018 at 9:44
== END ==
PROVIDERS: PCP Internal Medicine; Visit Provider Physical Medicine & Rehabilitation Pain Medicine
DX: M50.21 Other cervical disc displacement, high cervical region (principal); M48.02 Spinal stenosis, cervical region
CPT/HCPCS: 72141

== ENCOUNTER 2019-02-20 16:03 | Emergency (ER) | payer MEDICARE, MEDICAID, SELFPAY ==
[2019-02-20 16:11] VITALS: BP 120/59; PULSE 89; RESP 20; TEMP 36.5; O2SAT 98; BMI 47.2
--- NOTE | 2019-02-20 16:48 | DI.RAD.S_ITS ---
PROCEDURE: XR CHEST 1V INDICATIONS: chest pain TECHNIQUE: One view of the chest was acquired. COMPARISON: [facility], , CHEST 2 VIEW, 08/12/2017, 18:50. FINDINGS: Surgical changes and devices: None. Lungs and pleura: Lungs are clear. No pleural effusions or pneumothorax. Mediastinum: Mediastinal contours appear normal. Heart size is normal. Bones and chest wall: No suspicious bony lesions. Overlying soft tissues appear unremarkable. IMPRESSION: No acute cardiopulmonary pathology. Dictated by: Tha Ibarra M.D. on 02/20/2019 at 17:21 Approved by: Tha Ibarra M.D. on 02/20/2019 at 17:21
--- NOTE | 2019-02-20 16:54 | ED.ARRPALP ---
HPI - Arrhythmia/Palpitations <Deana JacksonJESSIE - Last Filed: 02/20/19 21:18> General Chief Complaint: Arrhythmia/Palpitations Stated Complaint: HEART PALPITATIONS HOT Time Seen by Provider: 02/20/19 16:34 Source: patient Mode of arrival: ambulatory Limitations: no limitations History of Present Illness HPI narrative: 59-year-old female with a history of diabetes, versus urgency department today complaining of hot flashes with chest heaviness. She states that this has happened about a year ago and her symptoms have returned. Patient reports that last week she felt a hot flash and chest heaviness, she checked her heart rate and it was 93, this episode lasted a minute. Today she started to have another episode while cooking, she stated she felt dizzy, she reported substernal chest heaviness, on sweating. She states this lasted for a few hours so she walked to the emergency department. She did not report her symptoms worsening as she walked. Patient denies any headaches, abdominal pain, vomiting, diarrhea, constipation, fevers, chills, syncope, or other concerning symptoms. Patient reported that she has had multiple stress tests completed the last 1 was done in September 2018 which she reported was normal. She is also taking a small dose of estrogen. Related Data Home Medications Medication Instructions Recorded Confirmed aspirin 81 mg PO DAILY #0 08/27/11 02/20/19 lisinopril 20 mg PO DAILY #0 08/27/11 02/20/19 metformin 1,000 mg PO BID #0 08/27/11 02/20/19 trazodone 150 mg PO BEDTIME #0 08/27/11 02/20/19 pioglitazone [Actos] 15 mg PO DAILY #0 01/01/17 02/20/19 pioglitazone [Actos] 30 mg PO DAILY #0 01/01/17 02/20/19 albuterol sulfate [Ventolin HFA] 1 - 2 puff INHALATION Q4-6H PRN 12/14/17 02/20/19 carisoprodol 1 tab PO BID 12/14/17 02/20/19 diclofenac sodium [Voltaren] 1 applic TOPICAL BID 12/14/17 02/20/19 estradiol 1 mg PO DAILY 12/14/17 02/20/19 gabapentin 1,200 mg PO BID 12/14/17 02/20/19 hydrocodone-acetaminophen 1 tab PO TID PRN 12/14/17 02/20/19 hydroxyzine pamoate 1 cap PO TID 12/14/17 02/20/19 omeprazole 20 mg PO DAILY 12/14/17 02/20/19 simvastatin 20 mg PO DAILY 12/14/17 02/20/19 gabapentin 600 mg PO QNOON 02/20/19 02/20/19 insulin asp prt-insulin aspart See Rx Instructions .ROUTE .COMPLEX 02/20/19 02/20/19 [Novolog Mix 70-30FlexPen U-100] magnesium 400 mg PO DAILY 02/20/19 02/20/19 Allergies Allergy/AdvReac Type Severity Reaction Status Date / Time aripiprazole [From [facility]] AdvReac Intermediate Shakiness Verified 02/20/19 17:09 Review of Systems <JESSIE Zapata - Last Filed: 02/20/19 21:18> Review of Systems Narrative: REVIEW OF SYSTEMS: GENERAL: Denies fever or chills. HENT: No head trauma, hearing loss or sore throat. EYES: No loss of vision, double vision, eye pain, or irritation. CARDIOVASCULAR: Complains of chest pressure, see HPI. No Syncope. RESPIRATORY: No shortness of breath or cough. GASTROINTESTINAL: No nausea, vomiting, diarrhea, or constipation. GENITOURINARY: No flank pain or dysuria. Patient complains of hot flashes, see HPI. MUSCULOSKELETAL: No pain, weakness, or deformities. INTEGUMENTARY: No rash, lesions, or pruritus. NEURO: No numbness, tingling, memory loss, or confusion. PSYCH: No behavior or mood changes. PFSH <JESSIE Zapata - Last Filed: 02/20/19 21:18> Medical History Elevated lipids (Chronic) H/O: HTN (hypertension) (Chronic) History of asthma (Chronic) Hx of non-insulin dependent diabetes mellitus (Chronic) Surgical History S/P total knee replacement (Resolved) Status post appendectomy (Resolved) Status post hysterectomy (Resolved) Status post hysterectomy (Resolved) Family History Other Family history non-contributory Social History Smoking Status: Current every day smoker Family History Other Family history non-contributory Social History Smoking Status: Current every day smoker Exam <JESSIE Zapata - Last Filed: 02/20/19 21:18> Initial Vital Signs Initial Vital Signs: Vital Signs Temperature 97.7 F 02/20/19 16:11 Pulse Rate 89 02/20/19 16:11 Respiratory Rate 20 02/20/19 16:11 Blood Pressure 120/59 L 02/20/19 16:11 Pulse Oximetry 98 02/20/19 16:11 PHYSICAL EXAMINATION: GENERAL: Well groomed, alert, and cooperative and slightly anxious during the exam. Patient is obese. Answers questions promptly and appropriately. Vital signs noted. HENT: Normocephalic, atraumatic. Ear canals patent. Oral mucosa is pink and moist. Patient appears flushed during initial exam, during reassessment patient did not appear flushed anymore. EYES: Conjunctiva pink, sclera white, no periorbital swelling. CHEST: Normal to inspection and without deformities. CARDIOVASCULAR: S1 and S2 sounds normal. Regular rate and rhythm, no murmurs, clicks, or bruits. No pedal edema. RESPIRATORY: Normal respiratory rate, trachea midline, airway patent. No stridor, nasal flaring or accessory muscle use. Lungs are clear in all coyle without wheeze, rhonchi, or crackles. GASTROINTESTINAL: Bowel sounds normoactive. Abdomen is soft and non-tender. No organomegaly. MUSCULOSKELETAL: Normal gait and coordination. Equal tone and mass bilaterally. EXTREMITIES: CMS intact. Moves all extremities. SKIN: Warm, dry, soft, appropriate color for ethnicity. No lesions, rashes, or wounds. NEURO: Alert and Oriented X 3. Good coordination. No ataxia, or sensory deficits, or cognitive issues. PSYCH: Appropriate affect and mood. <Ivana Iqbal MD - Last Filed: 02/21/19 03:47> Initial Vital Signs Initial Vital Signs: Vital Signs Temperature 97.7 F 02/20/19 16:11 Pulse Rate 89 02/20/19 16:11 Respiratory Rate 20 02/20/19 16:11 Blood Pressure 120/59 L 02/20/19 16:11 Pulse Oximetry 98 02/20/19 16:11 Scores <Deana JESSIE Jackson - Last Filed: 02/20/19 21:18> CHADS-VASc Congestive heart failure: no Hypertension: yes Age 75 years or older: no Diabetes mellitus: yes Stroke, TIA, or TE: no Vascular disease: no Age 65 to 74 years: no Sex category (female): Female CHADS-VASc Score: 3 HEART Score Heart Score history: Moderately Suspicious Heart Score EKG: Normal Heart Score Age: 45-64 years old Heart Score risk factors: > 3 risk factors or hx of atherosclerotic disease Heart Score troponin: < or = to normal limit Heart Score Total: 4 Wells' Criteria for PE Clinical signs and symptoms of DVT: No PE is #1 Dx or equally likely: No Heart rate > 100: No Immobilization at least 3 days or surg in previous 4 weeks: No History of PE or DVT: No Hemoptysis: No Malignancy w/Treatment within 6 months or palliative: No Wells' PE Score total: 0 Course <JESSIE Zapata - Last Filed: 02/20/19 21:18> Course Course Narrative: Patient denied chest pressure during her stay in the emergency department. She did report, she felt warm on and off and was feeling like she was having some of episodes. At this time there is no changes to her cardiac rhythm on the monitor. A 2nd troponin was redrawn at 1900 and also resulted as normal. I had an extensive conversation with patient that it was important for her to follow up with her primary care provider for possible further testing such as a Holter monitor. She states that she has had a stress test in September which was also reassuring. Patient was instructed to return to the emergency department immediately if other symptoms occur. I also encouraged her to talk to her doctor about her estrogen doses as this may be contributing to her problem. Orders Ordered: ED Orders 02/20/19 19:03 Troponin I Stat Vital Signs Vital signs: Vital Signs - 8 hr 02/20/19 20:00 02/20/19 20:18 Pulse Rate 74 75 Respiratory Rate 17 16 Blood Pressure 121/56 L Blood Pressure [Left Arm] 121/56 L Pulse Oximetry 96 98 <Ivana Iqbal MD - Last Filed: 02/21/19 03:47> Orders Ordered: ED Orders 02/20/19 19:03 Troponin I Stat Vital Signs Vital signs: Vital Signs - 8 hr 02/20/19 20:00 02/20/19 20:18 Pulse Rate 74 75 Respiratory Rate 17 16 Blood Pressure 121/56 L Blood Pressure [Left Arm] 121/56 L Pulse Oximetry 96 98 MDM - Arrhythmia/Palpitations <JESSIE Zapata - Last Filed: 02/20/19 21:18> Medical Records Attestation: I reviewed the patient's medical records. Lab Data Attestation: I reviewed the patient's lab results. Result diagrams: 02/20/19 16:54 02/20/19 16:54 Labs: Lab Results 02/20/19 02/20/19 02/20/19 Range/Units 16:54 16:54 16:54 WBC 8.6 (4.5-11.0) X10^3/uL RBC 3.95 L (4.0-5.2) X10^6/uL Hgb 11.7 L (12.0-16.0) g/dL Hct 34.3 L (36-46) % MCV 86.8 (80-100) fL MCH 29.7 (26-34) PG MCHC 34.2 (30-36) % RDW 13.1 (11.6-14.8) % Plt Count 330 (150-400) X10^3/uL Neut % (Auto) 61.6 (50-75) % Lymph % (Auto) 29.5 (25-40) % [place] % (Auto) 7.4 (3-14) % Eos % (Auto) 1.2 L (2-4) % Baso % (Auto) 0.3 (0-2) % Neut # (Auto) 5300 (6628-7738) /uL Lymph # (Auto) 2500 (3340-5702) /uL [place] # (Auto) 600 (0-900) /uL Eos # (Auto) 100 (0-450) /uL Baso # (Auto) 0 (0-100) /uL PT 11.5 (10.1-12.7) SECONDS INR 1.0 (0.9-1.3) APTT 32 (26.4-36.2) SECONDS Sodium 137 (137-145) mmol/L Potassium 3.7 (3.4-5.1) mmol/L Chloride 98 (98-107) mmol/L Carbon Dioxide 31 (22-32) mmol/L BUN 18 H (7-17) mg/dL Creatinine 0.50 L (0.52-1.04) mg/dL Estimated GFR > 60.0 (>60) mL/min BUN/Creatinine Ratio 36.0 H (6-22) Glucose 192 H (70-100) mg/dL Calcium 9.3 (8.4-10.2) mg/dL Total Bilirubin 0.3 (0.2-1.3) mg/dL AST 16 (14-36) IU/L ALT 9 (9-52) IU/L Alkaline Phosphatase 74 (38-126) U/L Total Creatine Kinase 27 L (30-135) U/L CK-MB (CK-2) TNP CK-MB (CK-2) Rel Index TNP Troponin I < 0.012 (0.01-0.034) ng/mL Total Protein 6.9 (6.3-8.2) g/dL Albumin 3.9 (3.5-5.0) g/dL Globulin 3.0 (1.7-4.1) g/dL Albumin/Globulin Ratio 1.3 (1.0-2.8) Lipase 52 (23-300) U/L 02/20/19 Range/Units 19:03 WBC (4.5-11.0) X10^3/uL RBC (4.0-5.2) X10^6/uL Hgb (12.0-16.0) g/dL Hct (36-46) % MCV (80-100) fL MCH (26-34) PG MCHC (30-36) % RDW (11.6-14.8) % Plt Count (150-400) X10^3/uL Neut % (Auto) (50-75) % Lymph % (Auto) (25-40) % [place] % (Auto) (3-14) % Eos % (Auto) (2-4) % Baso % (Auto) (0-2) % Neut # (Auto) (9961-0284) /uL Lymph # (Auto) (3197-0409) /uL [place] # (Auto) (0-900) /uL Eos # (Auto) (0-450) /uL Baso # (Auto) (0-100) /uL PT (10.1-12.7) SECONDS INR (0.9-1.3) APTT (26.4-36.2) SECONDS Sodium (137-145) mmol/L Potassium (3.4-5.1) mmol/L Chloride (98-107) mmol/L Carbon Dioxide (22-32) mmol/L BUN (7-17) mg/dL Creatinine (0.52-1.04) mg/dL Estimated GFR (>60) mL/min BUN/Creatinine Ratio (6-22) Glucose (70-100) mg/dL Calcium (8.4-10.2) mg/dL Total Bilirubin (0.2-1.3) mg/dL AST (14-36) IU/L ALT (9-52) IU/L Alkaline Phosphatase (38-126) U/L Total Creatine Kinase (30-135) U/L CK-MB (CK-2) CK-MB (CK-2) Rel Index Troponin I < 0.012 (0.01-0.034) ng/mL Total Protein (6.3-8.2) g/dL Albumin (3.5-5.0) g/dL Globulin (1.7-4.1) g/dL Albumin/Globulin Ratio (1.0-2.8) Lipase (23-300) U/L Imaging Data Chest x-ray: Radiologist's impression: [address] [place] [id number] XRay Report Signed Patient: Aurora Tomas [facility]#: [id number] : 1960Acct:[id number] Age/Sex: 59 / FDate of Service: 02/20/19 Loc: ED Accession Number: [id number] Procedure: XR chest 1V Ordering Provider: Deana Jackson PROCEDURE: XR CHEST 1V INDICATIONS: chest pain TECHNIQUE: One view of the chest was acquired. COMPARISON: [facility], , CHEST 2 VIEW, 08/12/2017, 18:50. FINDINGS: Surgical changes and devices: None. Lungs and pleura: Lungs are clear. No pleural effusions or pneumothorax. Mediastinum: Mediastinal contours appear normal. Heart size is normal. Bones and chest wall: No suspicious bony lesions. Overlying soft tissues appear unremarkable. IMPRESSION: No acute cardiopulmonary pathology. Dictated by: Tha Ibarra M.D. on 02/20/2019 at 17:21 Approved by: Tha Ibarra M.D. on 02/20/2019 at 17:21 ECG Data Interpretation: Normal sinus rhythm, rate 87, DE interval 164, QTC 410. No ectopy. No ST elevation or ST depression. No T-wave inversion. EKG was also read by Dr. Frank. MDM Narrative Medical decision making narrative: I suspect that patient's symptoms are most likely caused from hot flashes (possibly due to description of hot flashes, patient is taking estrogen, post/perimenopausal, a negative cardiac workup). Is also possible that anxiety may play a role in this as she seemed very anxious about her heart, however, I have a low suspicion for ACS due to negative cardiac workup, recent stress test that was reassuring, negative repeat troponin, and symptoms that were intermittent. Less likely PE due to lack of systemic symptoms such as tachycardia and shortness, low risk factors as well as complaints being mainly about hot flashes. Less likely infection due to lack of fever and lack of illness. Strict return precautions given and follow-up instructions discussed. <Ivana Iqbal MD - Last Filed: 02/21/19 03:47> Lab Data Labs: Lab Results 02/20/19 02/20/19 02/20/19 Range/Units 16:54 16:54 16:54 WBC 8.6 (4.5-11.0) X10^3/uL RBC 3.95 L (4.0-5.2) X10^6/uL Hgb 11.7 L (12.0-16.0) g/dL Hct 34.3 L (36-46) % MCV 86.8 (80-100) fL MCH 29.7 (26-34) PG MCHC 34.2 (30-36) % RDW 13.1 (11.6-14.8) % Plt Count 330 (150-400) X10^3/uL Neut % (Auto) 61.6 (50-75) % Lymph % (Auto) 29.5 (25-40) % [place] % (Auto) 7.4 (3-14) % Eos % (Auto) 1.2 L (2-4) % Baso % (Auto) 0.3 (0-2) % Neut # (Auto) 5300 (7442-2246) /uL Lymph # (Auto) 2500 (8446-9145) /uL [place] # (Auto) 600 (0-900) /uL Eos # (Auto) 100 (0-450) /uL Baso # (Auto) 0 (0-100) /uL PT 11.5 (10.1-12.7) SECONDS INR 1.0 (0.9-1.3) APTT 32 (26.4-36.2) SECONDS Sodium 137 (137-145) mmol/L Potassium 3.7 (3.4-5.1) mmol/L Chloride 98 (98-107) mmol/L Carbon Dioxide 31 (22-32) mmol/L BUN 18 H (7-17) mg/dL Creatinine 0.50 L (0.52-1.04) mg/dL Estimated GFR > 60.0 (>60) mL/min BUN/Creatinine Ratio 36.0 H (6-22) Glucose 192 H (70-100) mg/dL Calcium 9.3 (8.4-10.2) mg/dL Total Bilirubin 0.3 (0.2-1.3) mg/dL AST 16 (14-36) IU/L ALT 9 (9-52) IU/L Alkaline Phosphatase 74 (38-126) U/L Total Creatine Kinase 27 L (30-135) U/L CK-MB (CK-2) TNP CK-MB (CK-2) Rel Index TNP Troponin I < 0.012 (0.01-0.034) ng/mL Total Protein 6.9 (6.3-8.2) g/dL Albumin 3.9 (3.5-5.0) g/dL Globulin 3.0 (1.7-4.1) g/dL Albumin/Globulin Ratio 1.3 (1.0-2.8) Lipase 52 (23-300) U/L 02/20/19 Range/Units 19:03 WBC (4.5-11.0) X10^3/uL RBC (4.0-5.2) X10^6/uL Hgb (12.0-16.0) g/dL Hct (36-46) % MCV (80-100) fL MCH (26-34) PG MCHC (30-36) % RDW (11.6-14.8) % Plt Count (150-400) X10^3/uL Neut % (Auto) (50-75) % Lymph % (Auto) (25-40) % [place] % (Auto) (3-14) % Eos % (Auto) (2-4) % Baso % (Auto) (0-2) % Neut # (Auto) (8407-0821) /uL Lymph # (Auto) (6237-8743) /uL [place] # (Auto) (0-900) /uL Eos # (Auto) (0-450) /uL Baso # (Auto) (0-100) /uL PT (10.1-12.7) SECONDS INR (0.9-1.3) APTT (26.4-36.2) SECONDS Sodium (137-145) mmol/L Potassium (3.4-5.1) mmol/L Chloride (98-107) mmol/L Carbon Dioxide (22-32) mmol/L BUN (7-17) mg/dL Creatinine (0.52-1.04) mg/dL Estimated GFR (>60) mL/min BUN/Creatinine Ratio (6-22) Glucose (70-100) mg/dL Calcium (8.4-10.2) mg/dL Total Bilirubin (0.2-1.3) mg/dL AST (14-36) IU/L ALT (9-52) IU/L Alkaline Phosphatase (38-126) U/L Total Creatine Kinase (30-135) U/L CK-MB (CK-2) CK-MB (CK-2) Rel Index Troponin I < 0.012 (0.01-0.034) ng/mL Total Protein (6.3-8.2) g/dL Albumin (3.5-5.0) g/dL Globulin (1.7-4.1) g/dL Albumin/Globulin Ratio (1.0-2.8) Lipase (23-300) U/L Discharge Plan Departure Patient Disposition: Home Clinical Impression: Palpitations, Hot flashes Discharge Date/Time: 02/20/19 20:19 Instructions: DI for Palpitations Activity Restrictions/Additional Instructions: Thank you for entrusting me with your care today. As discussed, your lab work, EKG, and chest x-ray are reassuring. I recommend following up with your primary care provider for further testing such as a Holter monitor or ZIO patch to monitor your heart rhythm for a longer period of time. Return to the emergency department if you develop chest pain, shortness of breath, syncope, high fevers, uncontrollable vomiting, other concerning symptoms. Prescriptions: No Action aspirin 81 mg Tablet,Delayed Release (Dr/Ec) 81 mg PO DAILY Qty: 0 RF: 0 lisinopril 20 mg Tablet 20 mg PO DAILY Qty: 0 RF: 0 metformin 1,000 MG tablet extended release 24hr 1,000 mg PO BID Qty: 0 RF: 0 trazodone 150 MG tablet 150 mg PO BEDTIME Qty: 0 RF: 0 pioglitazone [Actos] 15 MG tablet 15 mg PO DAILY Qty: 0 RF: 0 pioglitazone [Actos] 30 MG tablet 30 mg PO DAILY Qty: 0 RF: 0 carisoprodol 350 mg tablet 1 tab PO BID RF: 0 gabapentin 600 mg tablet 1,200 mg PO BID RF: 0 hydrocodone-acetaminophen 5-325 mg tablet 1 tab PO TID PRN (Reason: Pain, Moderate) RF: 0 estradiol 1 mg tablet 1 mg PO DAILY RF: 0 simvastatin 20 mg tablet 20 mg PO DAILY RF: 0 omeprazole 20 mg capsule,delayed release(DR/EC) 20 mg PO DAILY RF: 0 albuterol sulfate [Ventolin HFA] 90 mcg/actuation HFA aerosol inhaler 1 - 2 puff Inhalation Q4-6H PRN (Reason: Shortness Of Breath) RF: 0 hydroxyzine pamoate 25 mg capsule 1 cap PO TID RF: 0 diclofenac sodium [Voltaren] 1 % gel 1 applic Topical BID RF: 0 magnesium 200 mg Tablet 400 mg PO DAILY RF: 0 Novolog Mix 70-30FlexPen U-100 100 unit/mL (70-30) insulin pen See Rx Instructions .ROUTE .COMPLEX RF: 0 gabapentin 600 mg tablet 600 mg PO QNOON RF: 0 Referrals: Joe Radford MD [Primary Care Provider] -
[2019-02-20 17:00] VITALS: BP 138/69; PULSE 81; RESP 19; O2SAT 98
[2019-02-20 17:03] LABS: Add Manual Diff / Slide Review NO; Basophils Absolute Auto 0 /uL (0-100); Basophils Percent Auto 0.3 % (0-2); Eosinophils Absolute Auto 100 /uL (0-450); Eosinophils Percent Auto 1.2 % (2-4); Hematocrit 34.3 % (36-46); Hemoglobin 11.7 g/dL (12.0-16.0); Lymphocytes Absolute Auto 2500 /uL (1100-4500); Lymphocytes Percent Auto 29.5 % (25-40); Mean Corpuscular HGB Conc 34.2 % (30-36); Mean Corpuscular Hemoglobin 29.7 PG (26-34); Mean Corpuscular Volume 86.8 fL (80-100); Monocytes Absolute Auto 600 /uL (0-900); Monocytes Percent Auto 7.4 % (3-14); Neutrophils Absolute Auto 5300 /uL (1500-7000); Neutrophils Percent Auto 61.6 % (50-75); Platelet Count 330 X10^3/uL (150-400); Red Blood Cell Count 3.95 X10^6/uL (4.0-5.2); Red Cell Distribution Width 13.1 % (11.6-14.8); White Blood Cell Count 8.6 X10^3/uL (4.5-11.0)
[2019-02-20 17:11] LABS: Prothrombin Time 11.5 SECONDS (10.1-12.7)
[2019-02-20 17:14] LABS: PTT Partial Thromboplastin Tim 32 SECONDS (26.4-36.2)
[2019-02-20 17:15] LABS: Alanine Aminotransferase 9 IU/L (9-52); Albumin 3.9 g/dL (3.5-5.0); Albumin Globulin Ratio 1.3 (1.0-2.8); Alkaline Phosphatase 74 U/L (38-126); Aspartate Aminotransferase 16 IU/L (14-36); Bilirubin Total 0.3 mg/dL (0.2-1.3); Blood Urea Nitrogen 18 mg/dL (7-17); Calcium 9.3 mg/dL (8.4-10.2); Carbon Dioxide 31 mmol/L (22-32); Chloride 98 mmol/L (98-107); Creatine Kinase 27 U/L (30-135); Estimated Glomerular Filt Rate > 60.0 mL/min (>60); Glucose 192 mg/dL (70-100); HEMOLYSIS < 15 (0-50); Lipase 52 U/L (23-300); Potassium 3.7 mmol/L (3.4-5.1); Sodium 137 mmol/L (137-145); Total Protein 6.9 g/dL (6.3-8.2)
[2019-02-20 17:26] LABS: Troponin I < 0.012 ng/mL (0.01-0.034)
[2019-02-20 18:30] VITALS: BP 111/52; PULSE 83; RESP 18; O2SAT 96
[2019-02-20 19:31] LABS: Troponin I < 0.012 ng/mL (0.01-0.034)
[2019-02-20 20:00] VITALS: BP 121/56; PULSE 74; RESP 17; O2SAT 96
[2019-02-20 20:18] VITALS: BP 121/56; PULSE 75; RESP 16; O2SAT 98
== END 2019-02-20 20:19 | disposition home or self-care (01) ==
PROVIDERS: Emergency Provider Nurse Practitioner; PCP Internal Medicine
DX: R00.2 Palpitations (principal); R23.2 Flushing
CPT/HCPCS: 36415; 36591; 71045; 80053; 82550; 83690; 84484; 85025; 85610; 85730; 93005; 99283; 99285

== ENCOUNTER → 2019-03-14 08:21 | Outpatient (CLI) | payer MEDICARE, MEDICAID, SELFPAY ==
--- NOTE | 2019-03-14 | DI.MRI.S_ITS ---
PROCEDURE: MR LUMBAR SPINE WO CON INDICATIONS: Low back and bilateral hip pain TECHNIQUE: Noncontrast sagittal T1 spin echo and T2 fast echo, sagittal STIR, axial T1 and T2 fast spin echo through the lumbar spine. In cases with scoliosis, additional coronal T2 fast spin echo may be performed. COMPARISON: [facility], MR, L-SPINE WITHOUT CONTRAST, 02/14/2016, 16:15. [facility], CR, XR LUMBAR SPINE WITH OBLIQUES, 05/24/2017, 11:57. [facility], MR, MR LUMBAR SPINE WO CON, 02/04/2018, 14:56. FINDINGS: Image quality: Excellent. Alignment and Curvature: There is grade 1 anterolisthesis of L5 on S1 secondary to bilateral pars inter-articularis defects. Bone Marrow: Marrow is of normal overall signal. No acute vertebral body compression fractures. Spinal Cord: Conus medullaris terminates at the L1-L2 level. Visualized cord demonstrates normal signal and size. Paraspinous Soft Tissues: No paravertebral masses. T12-L1: Mild loss of disc height and disc desiccation. There is mild posterior disc bulge and disc osteophyte complex. The central canal is mildly narrowed. moderate left and mild right foraminal stenosis. Compared with the last exam on 02/04/2018, there is minimal change. L1-L2: Moderate loss of disc height and disc desiccation. There is circumferential disc bulge and disc osteophyte complex. There is left posterior disc protrusion causing severe narrowing of the left lateral recess and moderate central canal stenosis. There is severe left and moderate right foraminal stenosis. There is likely nerve root impingement. Compared with the last exam, there is minimal change. L2-L3: Preserved disc height. Mild disc desiccation. There is mild diffuse disc bulge. The central canal is patient. There is moderate left and mild right foraminal stenosis. Compared with the last exam on 02/04/2018, there is minimal change. L3-L4: Preserved disc height. Mild disc desiccation. There is mild diffuse disc bulge. Mild bilateral facet arthropathy and hypertrophy of ligamentum flavum. The central canal is patient. There is moderate right and mild left foraminal stenosis. Compared with the last exam, there is minimal change. L4-L5: Preserved disc height. Mild disc desiccation. There is mild diffuse disc bulge. Mild bilateral facet arthropathy and hypertrophy of ligamentum flavum. The central canal is patient. There is moderate foraminal stenosis bilaterally. Compared with the last exam, there is minimal change. L5-S1: Severe loss of disc height and disc desiccation. There is mild diffuse disc bulge and posterior disc extrusion. Moderate bilateral facet arthropathy and hypertrophy of ligamentum flavum. The central canal is mildly narrowed. There is severe foraminal stenosis bilaterally. Compared with the last exam, there is minimal change. IMPRESSION: 1. Multilevel degenerative disc disease and facet arthropathy as described. 2. Moderate central canal stenosis at L1-L2 and mild central canal stenosis at T12-L1 and L5-S1. 3. Severe narrowing of the left L1-L2 lateral recess from posterior lateral protruding disc. 4. Multilevel foraminal stenoses as described. 5. Grade 1 anterolisthesis of L5 on S1. Dictated by: Quinn Waller M.D. on 03/14/2019 at 11:07 Approved by: Quinn Waller M.D. on 03/14/2019 at 11:23
== END ==
PROVIDERS: PCP Internal Medicine; Visit Provider Physical Medicine & Rehabilitation Pain Medicine
DX: M54.5 Low back pain (principal); M25.552 Pain in left hip; M25.551 Pain in right hip; M51.36 Other intervertebral disc degeneration, lumbar region; M51.37 Other intervertebral disc degeneration, lumbosacral region; M47.816 Spondylosis without myelopathy or radiculopathy, lumbar region; M47.817 Spondylosis without myelopathy or radiculopathy, lumbosacral region; M48.061 Spinal stenosis, lumbar region without neurogenic claudication; M48.07 Spinal stenosis, lumbosacral region; M48.05 Spinal stenosis, thoracolumbar region; M43.17 Spondylolisthesis, lumbosacral region
CPT/HCPCS: 72148

== ENCOUNTER → 2019-04-04 14:34 | Outpatient (CLI) | payer MEDICARE, MEDICAID, SELFPAY ==
--- NOTE | 2019-04-04 | DI.MG.S_ITS ---
BILATERAL DIGITAL SCREENING MAMMOGRAM 3D/2D WITH CAD: 04/04/2019 Comparison is made to exam dated: 03/16/2018 [facility]. There are scattered fibroglandular elements in both breasts. Current study was also evaluated with a Computer Aided Detection (CAD) system. There are benign calcifications in both breasts. No significant masses, calcifications, or other findings are seen in either breast. There has been no significant interval change. IMPRESSION: There is no mammographic evidence of malignancy. A 1 year screening mammogram is recommended. This exam was interpreted at Station ID: [id number]. NOTE: For mammograms, a report in lay terms will be sent to the patient. Approximately 15% of breast malignancies will not be visualized mammographically. In the management of a palpable breast mass, a negative mammogram must not discourage biopsy of a clinically suspicious lesion. Electronically Signed By: Ross godinez/courtney:04/05/2019 16:49:28 letter sent: Normal Exam ACR BI-RADS Category 2: Benign Finding(s) 3342F
== END ==
PROVIDERS: PCP Internal Medicine; Visit Provider Internal Medicine
DX: Z12.31 Encounter for screening mammogram for malignant neoplasm of breast (principal)
CPT/HCPCS: 77063; 77067

== ENCOUNTER → 2019-04-28 09:04 | Outpatient (CLI) | payer MEDICARE, MEDICAID, SELFPAY ==
--- NOTE | 2019-04-28 | DI.US.S_ITS ---
PROCEDURE: US PERIP VENOUS LOW EXTREM RT INDICATIONS: RIGHT LEG PAIN AND SWELLING TECHNIQUE: Real-time imaging, as well as color and pulse Doppler interrogation, were performed of the lower extremity deep veins from the inguinal ligament to the popliteal fossa. COMPARISON: [facility], [facility] VENOUS LOW EXTREM RT, 08/09/2018, 11:19. FINDINGS: The common femoral, femoral and popliteal veins are normally compressible, and free of intraluminal thrombus. Color and pulse Doppler demonstrate normal phasic intraluminal flow. There is normal augmentation response to distal compression maneuver. IMPRESSION: No deep venous thrombosis identified within the right lower extremity. Dictated by: Brandon Sanchez [facility] Interpreted: Isidro Balderas MD on 04/28/2019 at 16:32 Approved by: Isidro Balderas M.D. on 04/28/2019 at 17:56
== END ==
PROVIDERS: PCP Internal Medicine; Visit Provider Orthopaedic Surgery
DX: M79.604 Pain in right leg (principal); M79.89 Other specified soft tissue disorders
CPT/HCPCS: 93971

== ENCOUNTER → 2019-08-01 09:54 | Outpatient (CLI) | payer MEDICARE, MEDICAID, SELFPAY ==
[2019-08-01 10:45] LABS: Alanine Aminotransferase 19 IU/L (<35); Albumin 4.2 g/dL (3.5-5.0); Albumin Globulin Ratio 1.4 (1.0-2.8); Alkaline Phosphatase 86 U/L (38-126); Aspartate Aminotransferase 25 IU/L (14-36); BUN Creatinine Ratio 34.3 (6-22); Bilirubin Total 0.3 mg/dL (0.2-1.3); Blood Urea Nitrogen 24 mg/dL (7-17); Calcium 9.4 mg/dL (8.4-10.2); Carbon Dioxide 27 mmol/L (22-32); Chloride 101 mmol/L (98-107); Estimated Glomerular Filt Rate > 60.0 mL/min (>60); Globulin 3.1 g/dL (1.7-4.1); Glucose 145 mg/dL (70-100); HEMOLYSIS < 15 (0-50); Potassium 4.2 mmol/L (3.4-5.1); Sodium 137 mmol/L (137-145); Total Protein 7.3 g/dL (6.3-8.2)
[2019-08-01 11:20] LABS: Hemoglobin A1C% w Est Avg Glu 8.2 % (4.0-6.0)
== END ==
PROVIDERS: PCP Internal Medicine; Referring Provider Internal Medicine; Visit Provider Internal Medicine
DX: E11.9 Type 2 diabetes mellitus without complications (principal)
CPT/HCPCS: 36415; 80053; 83036

== ENCOUNTER → 2019-08-26 09:39 | Outpatient (CLI) | payer MEDICARE, MEDICAID, SELFPAY ==
--- NOTE | 2019-08-26 09:44 | DI.MRI.S_ITS ---
PROCEDURE: MR LUMBAR SPINE WO CON INDICATIONS: LUMBAR RADICULOPATHY TECHNIQUE: Noncontrast sagittal T1 spin echo and T2 fast echo, sagittal STIR, axial T1 and T2 fast spin echo through the lumbar spine. In cases with scoliosis, additional coronal T2 fast spin echo may be performed. COMPARISON: [facility], MR, MR LUMBAR SPINE WO CON, 02/04/2018, 14:56. [facility] [place], CR, XR LUMBAR SPINE WITH OLBIQUES PLUS FLEXION EXTENSION, 07/17/2019, 14:39. [facility], MR, MR LUMBAR SPINE WO CON, 03/14/2019, 9:26. FINDINGS: Image quality: Excellent. Alignment and Curvature: There is grade 1 L5-S1 anterolisthesis secondary to bilateral L5 pars and articularis defects. Bone Marrow: Reactive endplate change is noted adjacent to the L1-L2 and L5-S1 discs. No acute vertebral body compression fractures. Spinal Cord: Conus medullaris terminates at the L1-2 disc level. Visualized cord demonstrates normal signal and size. Paraspinous Soft Tissues: No paravertebral masses. L1-L2: Loss of disc signal and height. Mild, diffuse disc bulge. Broad-based central/left central/left foraminal moderate-sized disc protrusion. Mild narrowing of the central canal. Mild right and moderate left neural foraminal narrowing. No neural compression. L2-L3: Loss of the signal. Mild, diffuse disc bulge. No central stenosis. Mild bilateral neural foraminal narrowing. No neural compression. L3-L4: Loss of disc signal. Mild, diffuse disc bulge. No central stenosis. Mild bilateral neural foraminal narrowing. No neural compression. L4-L5: Loss of disc signal. Mild, diffuse disc bulge. Mild bilateral facet hypertrophy. Mild narrowing of the central canal. Moderate bilateral neural foraminal narrowing. No neural compression. L5-S1: Loss of disc signal and height. Mild, diffuse disc bulge. Mild right and moderate left facet hypertrophy. Epidural lipomatosis. Moderate narrowing of the central canal. Severe bilateral neural foraminal narrowing with compression of the exiting bilateral L5 nerve roots. IMPRESSION: 1. Grade I L5-S1 isthmic spondylolisthesis. 2. Multilevel degenerative disc disease. 3. Multilevel facet arthropathy. 4. Moderate L5-S1 central canal narrowing. Mild L1-L2 and L4-L5 central canal narrowing. 5. Severe bilateral L5-S1 neural foraminal narrowing with compression of the exiting bilateral L5 nerve roots. Please correlate with clinical data. Dictated by: Nina Valles MD, PhD on 08/28/2019 at 10:38 Approved by: Nina Valles MD, PhD on 08/28/2019 at 10:47
== END ==
PROVIDERS: PCP Internal Medicine; Referring Provider Physical Medicine & Rehabilitation Pain Medicine; Visit Provider Physical Medicine & Rehabilitation Pain Medicine
DX: M43.17 Spondylolisthesis, lumbosacral region (principal); M47.26 Other spondylosis with radiculopathy, lumbar region; M47.27 Other spondylosis with radiculopathy, lumbosacral region; M51.16 Intervertebral disc disorders with radiculopathy, lumbar region; M51.17 Intervertebral disc disorders with radiculopathy, lumbosacral region; M48.061 Spinal stenosis, lumbar region without neurogenic claudication; M48.07 Spinal stenosis, lumbosacral region
CPT/HCPCS: 72148

== ENCOUNTER → 2019-08-29 08:45 | Outpatient (CLI) | payer MEDICARE, MEDICAID, SELFPAY ==
--- NOTE | 2019-08-29 | DI.NM.S_ITS ---
PROCEDURE: NM BONE SCAN WHOLE BODY RADIOPHARMACEUTICAL: 21.3 mCi Tc-99m MDP IV. INDICATIONS: Presence of right artificial knee joint TECHNIQUE: Delayed whole-body scintigrams were obtained approximately 3-4 hours after intravenous injection of radiotracer. Anterior and posterior views were acquired from vertex to feet. Additional left and right oblique views of the pelvis and knees were obtained. COMPARISON: [facility], CR, XR CHEST 1V, 02/20/2019, 16:55. [facility] [place], CR, XR LUMBAR SPINE WITH OBLIQUES, 05/24/2017, 11:57. [facility] [place], CR, XR KNEE ARTHRITIC SERIES RT, 04/28/2019, 8:02. FINDINGS: There is increased activity over the posterior lateral aspect of the knee prosthesis. There is increased uptake in the distal right tibial shaft. No lesions are identified in skull, sternum, clavicles, scapulae, ribs and bony pelvis. There is low level increased uptake in cervical, thoracic and lumbar spine with distribution indistinguishable from degenerative disc and facet disease. There are foci of increased periarticular activity involving shoulders, left sternoclavicular joint, hips, left knee, ankles and feet, compatible with degenerative/arthritic changes. IMPRESSION: 1. Increased activity over the posterior lateral aspect of the right knee prosthesis, more intense than normally seen related to postsurgical change. This finding could be related to prosthesis loosening. Recommend radiographic and clinical correlation. 2. Increased uptake in the distal right tibial shaft. Recommend radiographic correlation. 3. Degenerative/arthritic changes as described. Dictated by: Quinn Waller M.D. on 08/29/2019 at 16:25 Approved by: Quinn Waller M.D. on 08/29/2019 at 17:11
== END ==
PROVIDERS: PCP Internal Medicine; Referring Provider Orthopaedic Surgery; Visit Provider Orthopaedic Surgery
DX: M25.561 Pain in right knee (principal); M25.551 Pain in right hip; Z96.651 Presence of right artificial knee joint
CPT/HCPCS: 78306; A9503

== ENCOUNTER → 2019-10-26 08:30 | Outpatient (CLI) | payer MEDICARE, MEDICAID, SELFPAY ==
[2019-10-26 09:12] LABS: Hemoglobin A1C% w Est Avg Glu 8.7 % (4.0-6.0)
[2019-10-26 09:15] LABS: Alanine Aminotransferase 16 IU/L (<35); Albumin 4.1 g/dL (3.5-5.0); Albumin Globulin Ratio 1.5 (1.0-2.8); Alkaline Phosphatase 97 U/L (38-126); Aspartate Aminotransferase 16 IU/L (14-36); BUN Creatinine Ratio 23.7 (6-22); Bilirubin Total 0.3 mg/dL (0.2-1.3); Blood Urea Nitrogen 14 mg/dL (7-17); Calcium 9.4 mg/dL (8.4-10.2); Carbon Dioxide 26 mmol/L (22-32); Chloride 104 mmol/L (98-107); Estimated Glomerular Filt Rate > 60.0 mL/min (>60); Globulin 2.7 g/dL (1.7-4.1); Glucose 232 mg/dL (70-100); HEMOLYSIS < 15 (0-50); Potassium 4.5 mmol/L (3.4-5.1); Sodium 138 mmol/L (137-145); Total Protein 6.8 g/dL (6.3-8.2)
== END ==
PROVIDERS: PCP Internal Medicine; Referring Provider Internal Medicine; Visit Provider Internal Medicine
DX: E11.9 Type 2 diabetes mellitus without complications (principal)
CPT/HCPCS: 36415; 80053; 83036

== ENCOUNTER → 2020-05-22 15:47 | Outpatient (CLI) | payer MEDICARE, MEDICAID, SELFPAY ==
--- NOTE | 2020-05-22 15:51 | DI.US.S_ITS ---
PROCEDURE: US [facility] VENOUS LOW EXTREM RT INDICATIONS: Pain in right knee TECHNIQUE: Real-time imaging, as well as color and pulse Doppler interrogation, were performed of the lower extremity deep veins from the inguinal ligament to the popliteal fossa. COMPARISON: [facility], , [facility] VENOUS LOW EXTREM RT, 04/28/2019, 9:14. FINDINGS: The common femoral, femoral and popliteal veins are normally compressible, and free of intraluminal thrombus. Color and pulse Doppler demonstrate normal phasic intraluminal flow. There is normal augmentation response to distal compression maneuver. IMPRESSION: No deep venous thrombosis. Dictated by: Aliza Stanley M.D. on 05/22/2020 at 17:29 Approved by: Aliza Stanley M.D. on 05/22/2020 at 17:29
== END ==
PROVIDERS: PCP Internal Medicine; Referring Provider Orthopaedic Surgery; Visit Provider Orthopaedic Surgery
DX: M25.561 Pain in right knee (principal)
CPT/HCPCS: 93971

== ENCOUNTER → 2020-06-25 10:56 | Outpatient (CLI) | payer MEDICARE, MEDICAID, SELFPAY ==
--- NOTE | 2020-06-25 | DI.US.S_ITS ---
PROCEDURE: US EXTREMITY NONVASC LOWER RT INDICATIONS: Phlebitis and thrombophlebitis of superficial vessels of rig TECHNIQUE: Real-time scanning was performed of the area of current clinical concern with palpable cord suggestive of superficial vein thrombus., with image documentation. COMPARISON: None. FINDINGS: The sonographic assessment shows thrombosed superficial vein at the calf region of current clinical concern. No DVT found. IMPRESSION: No DVT found. Superficial vein thrombus identified at the site of concern. Dictated by: Corby Harmon M.D. on 06/25/2020 at 14:17 Approved by: Corby Harmon M.D. on 06/25/2020 at 14:18
== END ==
PROVIDERS: PCP Internal Medicine; Referring Provider Physician Assistant; Visit Provider Physician Assistant
DX: I80.01 Phlebitis and thrombophlebitis of superficial vessels of right lower extremity (principal)
CPT/HCPCS: 76882

== ENCOUNTER → 2020-07-01 11:36 | Outpatient (CLI) | payer MEDICARE, MEDICAID, SELFPAY ==
--- NOTE | 2020-07-17 09:14 | PM.CARDMON.1 ---
Property Assessment Monitor Report Referral & Results Date Patient Seen: 07/01/20 Requesting provider: Zahida Jackson Indication: Palpitations Duration of monitoring (days): 7 Diary information: There are no patient diary events or patient triggered events to review Data: Minimum heart rate identified was 40 beats per minute at 01:42 on 07/03/2020 Maximum sinus heart rate was 120 beats per minute at 12:59 on 07/06/2020 Maximum overall heart rate was 136 beats per minute at 08:46 on 07/05/2020 during a 5 beat run of SVT/atrial tachycardia Less than 1% of identified beats rather ventricular supraventricular ectopic in origin There were 3 runs of SVT/atrial tachycardia the fastest being the above-listed run with the longest lasting 5 beats Impression: 7 day meat blender showing rare runs of very brief supraventricular tachycardia/atrial tachycardia No other significant dysrhythmias identified No source of palpitations identified on this study primarily due to lack of patient reported events. Clinical correlation suggested
== END ==
PROVIDERS: PCP Internal Medicine; Referring Provider Physician Assistant; Visit Provider Physician Assistant
DX: R00.2 Palpitations (principal)
CPT/HCPCS: 93242; 93244

== ENCOUNTER → 2020-07-09 11:29 | Outpatient (CLI) | payer MEDICARE, MEDICAID, SELFPAY ==
--- NOTE | 2020-07-09 | DI.MG.S_ITS ---
BILATERAL DIGITAL SCREENING MAMMOGRAM 3D/2D WITH CAD: 07/09/2020 CLINICAL: Routine screening. Comparison is made to exams dated: 04/04/2019 mammogram and 03/16/2018 mammogram - [facility]. There are scattered fibroglandular elements in both breasts. Current study was also evaluated with a Computer Aided Detection (CAD) system. There are benign calcifications in both breasts. No significant masses, calcifications, or other findings are seen in either breast. There has been no significant interval change. IMPRESSION: BENIGN There is no mammographic evidence of malignancy. A 1 year screening mammogram is recommended. This exam was interpreted at Station ID: [id number]. NOTE: For mammograms, a report in lay terms will be sent to the patient. Approximately 15% of breast malignancies will not be visualized mammographically. In the management of a palpable breast mass, a negative mammogram must not discourage biopsy of a clinically suspicious lesion. Electronically Signed By: Isidro collins/courtney:07/09/2020 16:10:50 letter sent: Normal Exam ACR BI-RADS Category 2: Benign Finding(s) 3342F
== END ==
PROVIDERS: PCP Internal Medicine; Referring Provider Internal Medicine; Visit Provider Internal Medicine
DX: Z12.31 Encounter for screening mammogram for malignant neoplasm of breast (principal)
CPT/HCPCS: 77063; 77067

== ENCOUNTER 2020-10-19 16:27 | Emergency (ER) | payer MEDICARE, MEDICAID, SELFPAY ==
[2020-10-19 16:35] VITALS: BP 161/73; PULSE 96; RESP 18; TEMP 36.6; O2SAT 97; BMI 41.5
--- NOTE | 2020-10-19 17:05 | ED.EXTPRO ---
HPI - Extremity Problem General Chief complaint: Extremity Problem,Nontraumatic Stated complaint: right side inner thigh/ groin pain, extend to knee Time Seen by Provider: 10/19/20 16:49 Source: patient Mode of arrival: Ambulatory Limitations: no limitations History of Present Illness HPI Narrative: Patient is a 60-year-old female who has history of hypertension hyperlipidemia osteoarthritis and diabetes presenting with 3 days of right inner thigh pain. She said it started after she walked to her orthopedic office to warp picker some paperwork. Has progressively gotten worse. She has had ongoing right knee issues since she had her knee replacement in 2016. She denies any recent injury. Concern for possible DVT. She has had no fever or chills. She has taken aspirin at to have a thrombophlebitis which she says of the aspirin did not help. MD Complaint: extremity pain Related Data Home Medications Medication Instructions Recorded Confirmed aspirin 81 mg PO DAILY #0 08/27/11 02/20/19 lisinopril 20 mg PO DAILY #0 08/27/11 02/20/19 metformin 1,000 mg PO BID #0 08/27/11 02/20/19 trazodone 150 mg PO BEDTIME #0 08/27/11 02/20/19 pioglitazone [Actos] 15 mg PO DAILY #0 01/01/17 02/20/19 pioglitazone [Actos] 30 mg PO DAILY #0 01/01/17 02/20/19 albuterol sulfate [Ventolin HFA] 1 - 2 puff INHALATION Q4-6H PRN 12/14/17 02/20/19 carisoprodol 1 tab PO BID 12/14/17 02/20/19 diclofenac sodium [Voltaren] 1 applic TOPICAL BID 12/14/17 02/20/19 estradiol 1 mg PO DAILY 12/14/17 02/20/19 gabapentin 1,200 mg PO BID 12/14/17 02/20/19 hydrocodone-acetaminophen 1 tab PO TID PRN 12/14/17 02/20/19 hydroxyzine pamoate 1 cap PO TID 12/14/17 02/20/19 omeprazole 20 mg PO DAILY 12/14/17 02/20/19 simvastatin 20 mg PO DAILY 12/14/17 02/20/19 gabapentin 600 mg PO QNOON 02/20/19 02/20/19 insulin asp prt-insulin aspart See Rx Instructions .ROUTE .COMPLEX 02/20/19 02/20/19 [Novolog Mix 70-30FlexPen U-100] magnesium 400 mg PO DAILY 02/20/19 02/20/19 Allergies Allergy/AdvReac Type Severity Reaction Status Date / Time aripiprazole [From Abilify] AdvReac Intermediate Shakiness Verified 10/19/20 16:35 Review of Systems Review of Systems Narrative: GENERAL: Denies chills, fatigue, malaise, fever, sweats, travel HEENT: Denies sinus pain, ear pain, sore throat, difficulty swallowing, neck pain RESPIRATORY: Denies dyspnea, cough, wheezing, hemoptysis, sputum. CARDIOVASCULAR: Denies chest pain, palpitations, orthopnea, edema GASTROINTESTINAL: Denies nausea, vomiting, abdominal pain, diarrhea, constipation, melena. : Denies dysuria, frequency, incontinence, hematuria, urinary retention, flank pain. MUSCULOSKELETAL: See HPI SKIN: No rash, no erythema, no pruritus NEUROLOGIC: Denies weakness, dizziness, headache, numbness, change in speech, confusion PSYCHIATRIC: No concerning psychosocial issues. 12 point review of systems is negative except for those stated above and HPI Patient History Medical History (Updated 10/19/20 @ 18:24 by Rosana Frank DO) Elevated lipids H/O: HTN (hypertension) History of asthma Hx of non-insulin dependent diabetes mellitus Surgical History S/P total knee replacement Status post appendectomy Status post hysterectomy Status post hysterectomy Family History Other Family history non-contributory Social History Smoking Status: Current every day smoker Smoking Status: Current every day smoker alcohol intake frequency: 0-2 drinks per day Substance Use Type: does not use Exam Initial Vital Signs Initial Vital Signs: Vital Signs Temperature 97.9 F 10/19/20 16:35 Pulse Rate 96 H 10/19/20 16:35 Respiratory Rate 18 10/19/20 16:35 Blood Pressure 161/73 H 10/19/20 16:35 Pulse Oximetry 97 10/19/20 16:35 GENERAL: Alert 60-year-old female and in no acute distress. BMI 41 HEENT: Head atraumatic,EOMI, pupils reactive, face symmetric, moist mucous membranes CARDIOVASCULAR: Regular rate and rhythm without murmurs, rubs or gallops. RESPIRATORY: Breath sounds equal bilaterally, no wheezes rales or rhonchi. EXTREMITIES: Normal range of motion, no clubbing or edema. Neurovascularly intact Right lower extremity she is complaining and pointing to pain in her right mid medial thigh no erythema no bony tenderness hip is nontender with internal and external rotation, knee is mildly swollen but no erythema she has full range of motion. No obvious varicose veins distal pedal pulse intact NEUROLOGICAL: Alert and oriented x4.Normal gait and speech. SKIN: Warm, dry, no laceration, no petechiae, no rashes or lesions. Course Orders Ordered: ED Orders 10/19/20 17:06 US periph venous low extrem rt Stat XR hip w pel if done RT 2V Stat XR knee RT 3V Stat Discontinued Medications Ketorolac Tromethamine (Ketorolac 30 Mg/Ml Vial) 30 mg IM NOW ONE Stop: 10/19/20 17:12 Last Admin: 10/19/20 17:36 Dose: 30 mg Documented by: LYN Vital Signs Vital signs: Vital Signs - 8 hr 10/19/20 16:35 Temperature 97.9 F Pulse Rate 96 H Respiratory Rate 18 Blood Pressure 161/73 H Pulse Oximetry 97 MDM - Extremity (Nontraumatic) Imaging Data Extremity x-ray #1: Radiologist's Impression: PROCEDURE: XR HIP W PEL IF DONE RT 2V INDICATIONS: pain TECHNIQUE: AP pelvis with lateral view(s) of the right hip(s). COMPARISON: [facility], , HIP 2V LEFT, 03/13/2013, 10:41. FINDINGS: Bones: No fractures or dislocations. Pelvic ring appears intact. No suspicious bony lesions. There is mild superior joint space loss bilaterally. There is mild osteophytosis and subchondral sclerosis. Corticated calcific fragment along the superolateral acetabulum may represent degenerative labral calcification versus accessory ossicle. Soft tissues: The visualized bowel gas pattern is normal. No suspicious soft tissue calcifications. Small enthesophyte formation of the greater trochanter. IMPRESSION: Mild osteoarthritis. No acute osseous abnormality. Dictated by: Everardo Pederson D.O. on 10/19/2020 at 17:06 Extremity x-ray #2: Radiologist's Impression: PROCEDURE: XR KNEE RT 3V INDICATIONS: pain TECHNIQUE: 3 views of the knee were acquired. COMPARISON: [facility] [place], , XR KNEE ARTHRITIC SERIES , 10/07/2018, 8:22. [facility] [place], CR, XR KNEE ARTHRITIC SERIES , 05/15/2020, 14:52. [facility], KNEE 1-2 VIEWS RIGHT, 06/25/2015, 16:49. FINDINGS: Bones: Patient is status post total knee arthroplasty with patellar resurfacing. Hardware is intact. No perihardware fracture. Unchanged osseous excrescence along the medial femoral condyle likely representing an osteochondroma. There is lateral deviation of the patella with mild degenerative osteophytosis along the superior margins. Soft tissues: Periarticular joint calcifications are unchanged. There is a joint effusion.. IMPRESSION: Moderate joint effusion, otherwise no evidence of an acute osseous abnormality or hardware complication. Lateral deviation of the patella. Recommend correlation for maltracking abnormalities. Dictated by: Everardo Pederson D.O. on 10/19/2020 at 16:40 US - DVT: Radiologist's Impression: PROCEDURE: US [facility] VENOUS LOW EXTREM RT INDICATIONS: RIGHT LEG PAIN TECHNIQUE: Real-time imaging, as well as color and pulse Doppler interrogation, were performed of the lower extremity deep veins from the inguinal ligament to the popliteal fossa. COMPARISON: [facility], PERIP VENOUS LOW EXTREM RT, 05/22/2020, 16:16. FINDINGS: The common femoral, femoral and popliteal veins are normally compressible, and free of intraluminal thrombus. Color and pulse Doppler demonstrate normal phasic intraluminal flow. There is normal augmentation response to distal compression maneuver. IMPRESSION: No evidence of right lower extremity deep venous thrombosis. Dictated by: Everardo Pederson D.O. on 10/19/2020 at 17:03 MDM Narrative Medical decision making narrative: At this time no cause of medial thigh pain. She may have over done it she certainly has arthritis in her knee and her hip no sign of DVT she is active and does not have significant risk factors she states that she has been walking more and lost about 50 lb over the last 1 year. Unclear etiology possible sprain recommend follow-up with PCP pain mildly better after Toradol. Discharge Plan Departure Patient Disposition: Home Clinical Impression: Osteoarthritis Qualifiers: Osteoarthritis location: multiple joints Osteoarthritis type: unspecified Qualified Code(s): M15.9 - Polyosteoarthritis, unspecified Instructions: Osteoarthritis Activity Restrictions/Additional Instructions: *You have been diagnosed with osteoarthritis *What to do: At this time x-ray and ultrasound are negative, you may have overused and drained your leg. However I recommend that you continue walking may be just not as far into your leg feels better. *Continue to take medications as directed Ibuprofen 600 mg every 6-8 hours if needed for mild pain Tylenol 1000 mg every 4-6 hours if needed for [id number] pain *Follow up with your primary care provider in 2-3 days *Return to ER if you should have inability to walk, increased swelling, redness or any new, worsening or concerning symptoms Prescriptions: No Action aspirin 81 mg Tablet,Delayed Release (Dr/Ec) 81 mg PO DAILY Qty: 0 RF: 0 lisinopril 20 mg Tablet 20 mg PO DAILY Qty: 0 RF: 0 metformin 1,000 MG tablet extended release 24hr 1,000 mg PO BID Qty: 0 RF: 0 trazodone 150 MG tablet 150 mg PO BEDTIME Qty: 0 RF: 0 pioglitazone [Actos] 15 MG tablet 15 mg PO DAILY Qty: 0 RF: 0 pioglitazone [Actos] 30 MG tablet 30 mg PO DAILY Qty: 0 RF: 0 carisoprodol 350 mg tablet 1 tab PO BID RF: 0 gabapentin 600 mg tablet 1,200 mg PO BID RF: 0 hydrocodone-acetaminophen 5-325 mg tablet 1 tab PO TID PRN (Reason: Pain, Moderate) RF: 0 estradiol 1 mg tablet 1 mg PO DAILY RF: 0 simvastatin 20 mg tablet 20 mg PO DAILY RF: 0 omeprazole 20 mg capsule,delayed release(DR/EC) 20 mg PO DAILY RF: 0 albuterol sulfate [Ventolin HFA] 90 mcg/actuation HFA aerosol inhaler 1 - 2 puff Inhalation Q4-6H PRN (Reason: Shortness Of Breath) RF: 0 hydroxyzine pamoate 25 mg capsule 1 cap PO TID RF: 0 diclofenac sodium [Voltaren] 1 % gel 1 applic Topical BID RF: 0 magnesium 200 mg Tablet 400 mg PO DAILY RF: 0 Novolog Mix 70-30FlexPen U-100 100 unit/mL (70-30) insulin pen See Rx Instructions .ROUTE .COMPLEX RF: 0 gabapentin 600 mg tablet 600 mg PO QNOON RF: 0 Referrals: Joe Radford MD [Primary Care Provider] -
--- NOTE | 2020-10-19 17:06 | DI.US.S_ITS ---
PROCEDURE: US [facility] VENOUS LOW EXTREM RT INDICATIONS: RIGHT LEG PAIN TECHNIQUE: Real-time imaging, as well as color and pulse Doppler interrogation, were performed of the lower extremity deep veins from the inguinal ligament to the popliteal fossa. COMPARISON: [facility], [facility] VENOUS LOW EXTREM RT, 05/22/2020, 16:16. FINDINGS: The common femoral, femoral and popliteal veins are normally compressible, and free of intraluminal thrombus. Color and pulse Doppler demonstrate normal phasic intraluminal flow. There is normal augmentation response to distal compression maneuver. IMPRESSION: No evidence of right lower extremity deep venous thrombosis. Dictated by: Everardo Pederson D.O. on 10/19/2020 at 17:03 Approved by: Everardo Pederson D.O. on 10/19/2020 at 17:04
[2020-10-19] MEDS: KETOROLAC 30 MG/ML VIAL IM (17:36)
[2020-10-19 17:49] VITALS: PULSE 81; O2SAT 97
[2020-10-19 18:00] VITALS: PULSE 80; O2SAT 98
[2020-10-19 18:35] VITALS: BP 159/72; PULSE 87; O2SAT 97
== END 2020-10-19 18:36 | disposition home or self-care (01) ==
PROVIDERS: Emergency Provider Emergency Medicine; PCP Internal Medicine
DX: M16.11 Unilateral primary osteoarthritis, right hip (principal)
CPT/HCPCS: 73502; 73562; 93971; 96372; 99283; J1885

== ENCOUNTER → 2020-11-14 20:08 | Outpatient (ROUT) | payer MEDICARE, MEDICAID, SELFPAY ==
[2020-11-14 20:18] LABS: Add Manual Diff / Slide Review NO; Basophils Absolute Auto 0 /uL (0-100); Basophils Percent Auto 0.4 % (0-2); Eosinophils Absolute Auto 200 /uL (0-450); Eosinophils Percent Auto 1.8 % (2-4); Hematocrit 38.4 % (36-46); Hemoglobin 12.7 g/dL (12.0-16.0); Lymphocytes Absolute Auto 2800 /uL (1100-4500); Lymphocytes Percent Auto 33.5 % (25-40); Mean Corpuscular HGB Conc 33.1 % (30-36); Mean Corpuscular Volume 90.5 fL (80-100); Monocytes Absolute Auto 700 /uL (0-900); Monocytes Percent Auto 8.5 % (3-14); Neutrophils Absolute Auto 4700 /uL (1500-7000); Neutrophils Percent Auto 55.8 % (50-75); Platelet Count 361 X10^3/uL (150-400); Red Blood Cell Count 4.24 X10^6/uL (4.0-5.2); Red Cell Distribution Width 13.2 % (11.6-14.8); White Blood Cell Count 8.5 X10^3/uL (4.5-11.0)
== END ==
PROVIDERS: PCP Internal Medicine; Visit Provider Internal Medicine
DX: R59.0 Localized enlarged lymph nodes (principal)
CPT/HCPCS: 85025

== ENCOUNTER → 2021-03-26 07:58 | Outpatient (CLI) | payer MEDICARE, MEDICAID, SELFPAY ==
[2021-03-26 09:54] LABS: COVID19 -Nasal RAPID POSITIVE (Negative)
== END ==
PROVIDERS: PCP Internal Medicine; Visit Provider Nurse Practitioner
DX: U07.1 COVID-19 (principal); Z20.822 Contact with and (suspected) exposure to COVID-19
CPT/HCPCS: 87635

== ENCOUNTER → 2021-07-11 11:17 | Outpatient (CLI) | payer MEDICARE, MEDICAID, SELFPAY ==
--- NOTE | 2021-07-11 | DI.MG.S_ITS ---
BILATERAL DIGITAL SCREENING MAMMOGRAM 3D/2D WITH CAD: 07/11/2021 CLINICAL: Routine screening. Comparison is made to exams dated: 07/09/2020 mammogram, 04/04/2019 mammogram, and 03/16/2018 mammogram - [facility]. There are scattered fibroglandular elements in both breasts. Current study was also evaluated with a Computer Aided Detection (CAD) system. There are benign calcifications in both breasts. No significant masses, calcifications, or other findings are seen in either breast. There has been no significant interval change. IMPRESSION: BENIGN There is no mammographic evidence of malignancy. A 1 year screening mammogram is recommended. This exam was interpreted at Station ID: [id number]. NOTE: For mammograms, a report in lay terms will be sent to the patient. Approximately 15% of breast malignancies will not be visualized mammographically. In the management of a palpable breast mass, a negative mammogram must not discourage biopsy of a clinically suspicious lesion. Electronically Signed By: Isidro collins/courtney:07/11/2021 11:43:07 letter sent: Normal Exam ACR BI-RADS Category 2: Benign Finding(s) 3342F
== END ==
PROVIDERS: PCP Internal Medicine; Referring Provider Internal Medicine; Visit Provider Internal Medicine
DX: Z12.31 Encounter for screening mammogram for malignant neoplasm of breast (principal)
CPT/HCPCS: 77063; 77067

== ENCOUNTER → 2021-09-24 09:00 | Outpatient (CLI) | payer MEDICARE, MEDICAID, SELFPAY ==
[2021-09-24 10:03] LABS: Hematocrit 35.4 % (36-46); Hemoglobin 12.4 g/dL (12.0-16.0); Mean Corpuscular HGB Conc 35.2 % (30-36); Mean Corpuscular Hemoglobin 29.5 PG (26-34); Platelet Count 360 X10^3/uL (150-400); Red Blood Cell Count 4.21 X10^6/uL (4.0-5.2); Red Cell Distribution Width 13.4 % (11.6-14.8)
[2021-09-24 10:14] LABS: Hemoglobin A1C% w Est Avg Glu 9.8 % (4.0-6.0)
[2021-09-24 10:16] LABS: Alanine Aminotransferase 16 IU/L (<35); Albumin 4.3 g/dL (3.5-5.0); Albumin Globulin Ratio 1.5 (1.0-2.8); Alkaline Phosphatase 105 U/L (38-126); Aspartate Aminotransferase 18 IU/L (14-36); BUN Creatinine Ratio 27.9 (6-22); Bilirubin Total 0.3 mg/dL (0.2-1.3); Blood Urea Nitrogen 17 mg/dL (7-17); Calcium 9.2 mg/dL (8.4-10.2); Carbon Dioxide 25 mmol/L (22-32); Chloride 104 mmol/L (98-107); Cholesterol 193 mg/dL (140-199); Estimated Glomerular Filt Rate > 60 mL/min (>60); Globulin 2.8 g/dL (1.7-4.1); Glucose 207 mg/dL (80-110); HDL Cholesterol 53 mg/dL (40-60); HEMOLYSIS < 15 (0-50); LDL Cholesterol Calculated 83 mg/dL (<100); Potassium 4.2 mmol/L (3.4-5.1); Sodium 137 mmol/L (137-145); Total Protein 7.1 g/dL (6.3-8.2); Triglycerides 283 mg/dL (35-150)
== END ==
PROVIDERS: PCP Internal Medicine; Referring Provider Internal Medicine; Visit Provider Internal Medicine
DX: I10 Essential (primary) hypertension (principal); E08.40 Diabetes mellitus due to underlying condition with diabetic neuropathy, unspecified; E78.2 Mixed hyperlipidemia
CPT/HCPCS: 36415; 80053; 80061; 83036; 84443; 85027

== ENCOUNTER → 2021-10-14 13:51 | Outpatient (CLI) | payer MEDICARE, MEDICAID, SELFPAY | PROVIDERS: PCP Internal Medicine; Referring Provider Internal Medicine; Visit Provider Internal Medicine | DX: Z13.820 Encounter for screening for osteoporosis (principal); Z78.0 Asymptomatic menopausal state; M85.852 Other specified disorders of bone density and structure, left thigh; F17.200 Nicotine dependence, unspecified, uncomplicated; Z90.710 Acquired absence of both cervix and uterus | CPT/HCPCS: 77080 ==

== ENCOUNTER 2021-12-12 08:15 | Outpatient (RCR) | payer MEDICARE, MEDICAID, SELFPAY ==
--- NOTE | 2021-12-09 18:05 | PT.OIE ---
Current Diagnoses Cervicalgia (12/09/21) Muscle weakness (generalized) (12/09/21) Past Medical History (Last Updated 10/14/21 @ 15:16 by Yeyo Barriga DO) Allergies Anxiety Asthma Carpal tunnel syndrome Cervical lymphadenitis Cervical spine disease Chronic back pain Chronic, continuous use of opioids Cubital tunnel syndrome Diabetic neuropathy associated with diabetes mellitus due to underlying condition Elevated lipids Essential hypertension Fibromyalgia H/O: HTN (hypertension) History of asthma History of bipolar disorder History of urinary incontinence Hx of non-insulin dependent diabetes mellitus Mixed hyperlipidemia Osteoarthritis Osteoporosis Primary osteoarthritis Type 2 diabetes mellitus with diabetic polyneuropathy Wears glasses Past Surgical History (Last Reviewed 09/24/21 @ 08:09 by Kendall Garnica MD) Anesthesia History of cholecystectomy History of tubal ligation S/P total knee replacement (~06/2015) Status post appendectomy (~1971) Status post hysterectomy Status post hysterectomy Visit Care Team Role Provider Type Kendall Garnica MD Attending Provider Physician Family Provider Primary Care Provider Referring Provider Specialty: Internal Medicine Address: [address] [place] [address], [facility] Email: [email or web address] Physical Therapy Initial Evaluation PT-OP-A Visit Information Start: 12/06/21 10:10 Freq: Status: Active Protocol: Document 12/09/21 08:17 LRN (Rec: 12/09/21 12:34 ZAKIA [id number]) Out-Patient Physical Therapy Visit Information Visit Information Visit Type Initial Evaluation Visit Note 06/25 Visit Start Time 08:15 Visit Stop Time 09:08 Total Visit Minutes 53 Visit Number 1 Evaluation Information Evaluation Date 12/09/21 Precautions Precautions PMH from intake form and record review: Controlled HBP , Diabetes II, Dizziness with 3 falls (most recent due to 4WW wheel broke), Fibromyalgia , Bipolar, R TKA 2016, Neuropathy of feet with tingling and lack of sensation , Osteoporosis (report indicates low bone mass). PT-OP-B Current Condition Start: 12/06/21 10:10 Freq: Status: Active Protocol: Document 12/09/21 08:17 LRN (Rec: 12/09/21 12:34 LRN [id number]) Current Condition History of Current Condition Onset Date 4-5 months ago Current Complaints Pain is behind the head, down the neck and into shoulder L>R , & upper back History of Current Condition Has had chronic neck due to DDD. Pain increased 4-5 months ago that was thought due to sleeping wrong. Sleeps on stomach with the head turned left with a pillow that goes around the neck on the Left side. Head feels heavy. Takes meds ( hydrocodone) to get out of bed . Pt is R handed. Pt reported hgt, 5'5, weight 240#, BMI = 39.9 (Obese is BMI > 30). Pt reports blood pressure ranges from 129-141/ 72-91. Prior Treatments and Tests 4 yrs ago PT at [facility] PT and had relief of pain except in the spine. X-rays at [facility]. Pt states she was told she had DDD. [facility] being seen for neck, hip and R knee and low back, Dr. Villalobos. Saw Dr. Barriga and was being treated for swollen L lymph nodes. Future Testing and Treatments Planned Dr. Gallardo for R knee (in 2016) . Developmental History Developmental History Had PT at [facility], 4 yrs ago with Virginia Olsen, PT. Chose to not have surgery on the spine. R knee TKA 2016. Gall Bladder removed 2011, Appy age 12. Treatment Goals Patient/Caregiver Goals Pt goal is: Imiprove the neck mobility to make sleeping more comfortable . Decrease neck pain to 1-2/10. Prior Functional Status Baseline Function- ADL's Modified Independent Baseline Function- Mobility Modified Independent Baseline Function- Gait Gait with 4WW chair walker Baseline Function- Other Lives with speech impaired son . Pain in neck 1-2/10 in the spine Current Functional Impairments (Reported) Functional Limitations- ADL's Pain in neck rated 4-5/10. Hard to sleep and can't get comfortable. Must sleep on stomach due to R hip and knee pain, and due to gastroc refulx. Wakes every 3 hours due to bladder issue. Difficulty moving the neck to the left. Functional Limitations- Mobility/Gait Gait with 4WW chair walker. Walks daily with 4WW. Has lost 100# in last 2 yrs. Personal Factors Other Personal Factors That May Effect Sleep on stomach due to other Therapy/Recovery health issues. Helps take care of her 36 yr old speech impediment disabled son. Fibromylagia, Osteoporosis, Diabetes type II, HBP not well controlled with meds, Bipolar disorder. PT-OP-C Subjective Start: 12/06/21 10:10 Freq: Status: Active Protocol: Document 12/09/21 08:17 LRN (Rec: 12/09/21 12:34 LRN [id number]) Patient Questionnaires Neck Disability Index NDI Score 13 Neck Disability Index Impairment 20 to 39% Impaired (Score 10- 19) Oswestry Low Back Index Oswestry Score 36 Oswestry Impairment 20 to 39% Impaired (Score 20- 39) OP-PT Pain Assessment Pain Assessment Grid Paper Pain Assessment Grid Completed Yes Location Neck Pain Location Details C/S Paraspinals, UT, intrascapular ms. Intensity 4 Scale Used Numeric (0 - 10) Description Aching Frequency Constant Pain Aggravating Factors Position,Activity Pain Alleviating Factors Cold,Heat,Medication Other Pain Alleviating Factors icy hot, Hot is most helpful PT-OP-H Neuro Start: 12/06/21 10:10 Freq: Status: Active Protocol: Document 12/09/21 08:17 LRN (Rec: 12/09/21 12:34 LRN [id number]) Sensation Evaluation Gross Sensation Gross Sensation WNL PT-OP-J Posture/Palpation/Skin Start: 12/06/21 10:10 Freq: Status: Active Protocol: Document 12/09/21 08:17 LRN (Rec: 12/09/21 12:34 LRN [id number]) Posture Evaluation Position Sitting Head/C-Spine Posture Forward Head Shoulder Posture (L) Rounded,(L) Forward,(L) Elevated Palpation Assessment Location Upper Back Palpation Location L upper Thoracic paraspinal, Rhomboids Palpation Findings Soft Tissue Tightness,Muscle Guarding,Tenderness Neck region Palpation Location maile Subocciput, L UT/C paraspinals. Palpation Findings Soft Tissue Tightness,Muscle Guarding,Tenderness PT-OP-K Range of Motion Start: 12/06/21 10:10 Freq: Status: Active Protocol: Document 12/09/21 08:17 LRN (Rec: 12/09/21 12:34 LRN [id number]) Cervical Spine Range of Motion Cervical Spine Active Degrees Testing Position Sitting Flexion 65 Extension 27 Rotation Left 30 Rotation Right 35 Lateral Flexion Left 12 Lateral Flexion Right 20 ROM Limitations Soft Tissue Tightness,Pain PT-OP-L Special Tests Start: 12/06/21 10:10 Freq: Status: Active Protocol: Document 12/09/21 08:17 LRN (Rec: 12/09/21 12:34 LRN [id number]) Special Tests Cervical Spine Special Tests Spurling's Test Test Results + L Comments Pain at L side of neck Traction Test Results + Comments Subocciptial pain decreased, increased spine pain Foraminal Compression Test Results + Comments Pain in spine PT-OP-M Strength Start: 12/06/21 10:10 Freq: Status: Active Protocol: Document 12/09/21 08:17 LRN (Rec: 12/09/21 12:34 LRN [id number]) Cervical Spine Strength Cervical Spine Manual Muscle Testing Testing Position Sitting Flexion (C1-2) 4- Good- Extension 4- Good- Rotation Left 3- Fair- Rotation Right 3+ Fair+ Lateral Flexion Left (C3) 3 Fair Lateral Flexion Right (C3) 4- Good- Comments Pain with L rotation. PT-OP-Q Treatments Start: 12/06/21 10:10 Freq: Status: Active Protocol: Document 12/09/21 08:17 LRN (Rec: 12/09/21 12:34 LR [id number]) Therapeutic Exercises Supine Exercises C. Rot Supine Exercise Name C. active rot stretch Side bilateral Reps/Minutes 10SH x 8 each Comments Extra time for training of max stretch, not into pain. Self-Care/Home Management Treatment Education Other Education Reviewed with pt, her past diagnosis of swollen lymph nodes vs pt report of clots in the neck. No history found of clots in the neck after review of pt's past medical history. Discussed results of evaluation, goals, and plan of care (POC). Pt agreeable to goals and POC. Activities Self-Care/Home Management Activities I/S pt in supine or sitting active C. rotation stretching, emphasizing not to push into pain. PT-OP-T Assessment and Plan Start: 12/06/21 10:10 Freq: Status: Active Protocol: Document 12/09/21 08:17 LRN (Rec: 12/09/21 12:34 LR [id number]) Physical Therapy Assessment Rehab Potential Rehabilitation Potential Good Evaluation Complexity Number of Personal Factors/Comorbidities 3 or More Number of Body Systems Impaired 4 or More Clinical Presentation at Evaluation Evolving Impairments Impairments Activity Tolerance,Pain,ROM, Soft Tissue Mobility,Strength Other Impairments Inflammation of lymph nodes. Goals Three Impairment Decreased neck mobility to the left hindering sleeping ability. Short Term Goal (STG) Review and make recommendations to sleeping position to minimize stress on the L side of neck. STG Duration 12/19/21 Usp Goal (LTG) Improve neck mobility to make sleeping more comfortable. LTG Duration 03/09/22 Two Impairment Neck, upper shoulders and upper back pain. Impairment Neck pain rated 3-4/10 with reported L worse than R side. Upper shoulder: L 3/10 Upper back pain rated 4/10 Short Term Goal (STG) Pt will be educated in proper sitting posture. STG Duration 12/12/21 Usp Goal (LTG) Decrease neck pain to 1-2/10. LTG Duration 03/09/22 One Impairment Lacks appropriate self care HEP. Usp Goal (LTG) Pt will be independent on a self care HEP. LTG Duration 03/09/22 Assessment Summary Assessment Pt appears to have soft tissue dysfunction in the suboccipital, neck and shoulder musculature with active trigger points. She also has mechanical dysfunction of the cervical spine (DDD) resulting in pain that is exacerbated by her sleep position placing her head and neck in a L rotated position. The pt sleeps in an inappropriate position due to reported other health problems (gastic reflux, hip and back pain). Pt also demonstrates weakness of the cervical region. The pt will benefit from skilled physical therapy to work towards achieving the above stated goals. Physical Therapy Plan Frequency and Duration Frequency of Treatment 2x/Week Plan of Care Start Date 12/09/21 Plan of Care End Date 03/09/22 Therapeutic Interventions Therapeutic Interventions Home Exercise Program,Manual Therapy,Neuromuscular Re- education,Patient/Caregiver Education,Self-Care/Home Management,Soft Tissue Mobilization,Therapeutic Activities,Therapeutic Exercises Modalities Cold Pack/Ice Massage,Electric Stimulation,Hot Packs, Ultrasound Next Visit Focus/Plan Next Visit Plan Monitor blood pressure & pt history for colon CA. Vertebral artery Test in sitting. Check DTR's. Nighttime postural training and sitting postural training. Start US & STM (subocciput and C/S paraspinals), When [facility] cleared: manual suboccipital release and gentle manual C. traction. Ther ex & Neuro for C/S stab & for C. mobility. HEP as appropriate. End modalities if needed for pain.
--- NOTE | 2021-12-09 18:06 | PT.OPPOC ---
Physical, Occupational & Speech Therapy At [facility] Current Diagnoses Cervicalgia (12/09/21) Muscle weakness (generalized) (12/09/21) Visit Care Team Role Provider Type Kendall Garnica MD Attending Provider Physician Family Provider Primary Care Provider Referring Provider Specialty: Internal Medicine Address: [address] [place] [address], [facility] Email: [email or web address] Plan Of Care PT-OP-T Assessment and Plan Start: 12/06/21 10:10 Freq: Status: Active Protocol: Document 12/09/21 08:17 LRN (Rec: 12/09/21 12:34 LRN [id number]) Physical Therapy Assessment Rehab Potential Rehabilitation Potential Good Evaluation Complexity Number of Personal Factors/Comorbidities 3 or More Number of Body Systems Impaired 4 or More Clinical Presentation at Evaluation Evolving Impairments Impairments Activity Tolerance,Pain,ROM, Soft Tissue Mobility,Strength Other Impairments Inflammation of lymph nodes. Goals Three Impairment Decreased neck mobility to the left hindering sleeping ability. Short Term Goal (STG) Review and make recommendations to sleeping position to minimize stress on the L side of neck. STG Duration 12/19/21 [employer] Goal (LTG) Improve neck mobility to make sleeping more comfortable. LTG Duration 03/09/22 Two Impairment Neck, upper shoulders and upper back pain. Impairment Neck pain rated 3-4/10 with reported L worse than R side. Upper shoulder: L 3/10 Upper back pain rated 4/10 Short Term Goal (STG) Pt will be educated in proper sitting posture. STG Duration 12/12/21 [employer] Goal (LTG) Decrease neck pain to 1-2/10. LTG Duration 03/09/22 One Impairment Lacks appropriate self care HEP. [employer] Goal (LTG) Pt will be independent on a self care HEP. LTG Duration 03/09/22 Assessment Summary Assessment Pt appears to have soft tissue dysfunction in the suboccipital, neck and shoulder musculature with active trigger points. She also has mechanical dysfunction of the cervical spine (DDD) resulting in pain that is exacerbated by her sleep position placing her head and neck in a L rotated position. The pt sleeps in an inappropriate position due to reported other health problems (gastic reflux, hip and back pain). Pt also demonstrates weakness of the cervical region. The pt will benefit from skilled physical therapy to work towards achieving the above stated goals. Physical Therapy Plan Frequency and Duration Frequency of Treatment 2x/Week Plan of Care Start Date 12/09/21 Plan of Care End Date 03/09/22 Therapeutic Interventions Therapeutic Interventions Home Exercise Program,Manual Therapy,Neuromuscular Re- education,Patient/Caregiver Education,Self-Care/Home Management,Soft Tissue Mobilization,Therapeutic Activities,Therapeutic Exercises Modalities Cold Pack/Ice Massage,Electric Stimulation,Hot Packs, Ultrasound Next Visit Focus/Plan Next Visit Plan Monitor blood pressure & pt history for colon CA. Vertebral artery Test in sitting. Check DTR's. Nighttime postural training and sitting postural training. Start US & STM (subocciput and C/S paraspinals), When [facility] cleared: manual suboccipital release and gentle manual C. traction. Ther ex & Neuro for C/S stab & for C. mobility. HEP as appropriate. End modalities if needed for pain. Plan of Care Dates Plan of Care Start Date 12/09/21 Plan of Care End Date 03/09/22 Electronically Signed by: Tash Goncalves, PT 12/09/21 [id number] If you are in agreement with this Plan of Care, please return a signed and dated copy. I have reviewed this Plan of Care and certify that the skilled therapy services above are required to meet the patient?s needs. Physician Signature Date Printed Name and Credentials Clinical Instructor Signature Printed Name and Credentials
--- NOTE | 2021-12-12 10:45 | PT.OTN ---
Current Diagnoses Cervicalgia (12/12/21) Muscle weakness (generalized) (12/12/21) Physical Therapy Treatment Note PT-OP-A Visit Information Start: 12/06/21 10:10 Freq: Status: Active Protocol: Document 12/12/21 08:16 LRN (Rec: 12/12/21 09:03 LRN [id number]) Out-Patient Physical Therapy Visit Information Visit Information Visit Type Treatment Note Visit Start Time 08:15 Visit Stop Time 08:55 Total Visit Minutes 40 Visit Number 2 Evaluation Information Evaluation Date 12/09/21 Precautions Precautions PMH from intake form and record review: Controlled HBP , Diabetes II, Dizziness with 3 falls (most recent due to 4WW wheel broke), Fibromyalgia , Bipolar, R TKA 2016, Neuropathy of feet with tingling and lack of sensation , Osteoporosis (report indicates low bone mass). PT-OP-B Current Condition Start: 12/06/21 10:10 Freq: Status: Active Protocol: Document 12/09/21 08:17 LRN (Rec: 12/09/21 12:34 LRN [id number]) Current Condition History of Current Condition Onset Date 4-5 months ago Current Complaints Pain is behind the head, down the neck and into shoulder L>R , & upper back History of Current Condition Has had chronic neck due to DDD. Pain increased 4-5 months ago that was thought due to sleeping wrong. Sleeps on stomach with the head turned left with a pillow that goes around the neck on the Left side. Head feels heavy. Takes meds ( hydrocodone) to get out of bed . Pt is R handed. Pt reported hgt, 5'5, weight 240#, BMI = 39.9 (Obese is BMI > 30). Pt reports blood pressure ranges from 129-141/ 72-91. Prior Treatments and Tests 4 yrs ago PT at [facility] PT and had relief of pain except in the spine. X-rays at [facility]. Pt states she was told she had DDD. [facility] being seen for neck, hip and R knee and low back, Dr. Villalobos. Saw Dr. Barriga and was being treated for swollen L lymph nodes. Future Testing and Treatments Planned Dr. Gallardo for R knee (in 2016) . Developmental History Developmental History Had PT at [facility], 4 yrs ago with Virginia Olsen, PT. Chose to not have surgery on the spine. R knee TKA 2016. Gall Bladder removed 2011, Appy age 12. Treatment Goals Patient/Caregiver Goals Pt goal is: Imiprove the neck mobility to make sleeping more comfortable . Decrease neck pain to 1-2/10. Prior Functional Status Baseline Function- ADL's Modified Independent Baseline Function- Mobility Modified Independent Baseline Function- Gait Gait with 4WW chair walker Baseline Function- Other Lives with speech impaired son . Pain in neck 1-2/10 in the spine Current Functional Impairments (Reported) Functional Limitations- ADL's Pain in neck rated 4-5/10. Hard to sleep and can't get comfortable. Must sleep on stomach due to R hip and knee pain, and due to gastroc refulx. Wakes every 3 hours due to bladder issue. Difficulty moving the neck to the left. Functional Limitations- Mobility/Gait Gait with 4WW chair walker. Walks daily with 4WW. Has lost 100# in last 2 yrs. Personal Factors Other Personal Factors That May Effect Sleep on stomach due to other Therapy/Recovery health issues. Helps take care of her 36 yr old speech impediment disabled son. Fibromylagia, Osteoporosis, Diabetes type II, HBP not well controlled with meds, Bipolar disorder. PT-OP-C Subjective Start: 12/06/21 10:10 Freq: Status: Active Protocol: Document 12/12/21 08:16 LRN (Rec: 12/12/21 09:03 LRN [id number]) OP-PT Subjective Patient Comments Patient Comments States she was cutting cheng peppers and started to get shooting pain down the middle of the neck and L arm. Stopped activity and rested and the pain in the arm went away. BP today: 136/71, HR 71. States yesterday 4pm was 149/72, hr 74, after pain med. PT-OP-H Neuro Start: 12/06/21 10:10 Freq: Status: Active Protocol: Document 12/12/21 08:16 LRN (Rec: 12/12/21 09:03 LRN [id number]) Deep Tendon Reflex & Clonus Assessment Deep Tendon Reflex Bilateral Brachioradialis Deep Tendon Reflex 0 Absent Bilateral Tricep Deep Tendon Reflex 0 Absent Bilateral Bicep Deep Tendon Reflex 0 Absent PT-OP-J Posture/Palpation/Skin Start: 12/06/21 10:10 Freq: Status: Active Protocol: Document 12/09/21 08:17 LRN (Rec: 12/09/21 12:34 LRN [id number]) Posture Evaluation Position Sitting Head/C-Spine Posture Forward Head Shoulder Posture (L) Rounded,(L) Forward,(L) Elevated Palpation Assessment Location Upper Back Palpation Location L upper Thoracic paraspinal, Rhomboids Palpation Findings Soft Tissue Tightness,Muscle Guarding,Tenderness Neck region Palpation Location maile Subocciput, L UT/C paraspinals. Palpation Findings Soft Tissue Tightness,Muscle Guarding,Tenderness PT-OP-K Range of Motion Start: 12/06/21 10:10 Freq: Status: Active Protocol: Document 12/09/21 08:17 LRN (Rec: 12/09/21 12:34 LRN [id number]) Cervical Spine Range of Motion Cervical Spine Active Degrees Testing Position Sitting Flexion 65 Extension 27 Rotation Left 30 Rotation Right 35 Lateral Flexion Left 12 Lateral Flexion Right 20 ROM Limitations Soft Tissue Tightness,Pain PT-OP-L Special Tests Start: 12/06/21 10:10 Freq: Status: Active Protocol: Document 12/09/21 08:17 LRN (Rec: 12/09/21 12:34 LRN [id number]) Special Tests Cervical Spine Special Tests Spurling's Test Test Results + L Comments Pain at L side of neck Traction Test Results + Comments Subocciptial pain decreased, increased spine pain Foraminal Compression Test Results + Comments Pain in spine PT-OP-M Strength Start: 12/06/21 10:10 Freq: Status: Active Protocol: Document 12/09/21 08:17 LRN (Rec: 12/09/21 12:34 LRN [id number]) Cervical Spine Strength Cervical Spine Manual Muscle Testing Testing Position Sitting Flexion (C1-2) 4- Good- Extension 4- Good- Rotation Left 3- Fair- Rotation Right 3+ Fair+ Lateral Flexion Left (C3) 3 Fair Lateral Flexion Right (C3) 4- Good- Comments Pain with L rotation. PT-OP-Q Treatments Start: 12/06/21 10:10 Freq: Status: Active Protocol: Document 12/12/21 08:16 LRN (Rec: 12/12/21 09:03 LRN [id number]) Therapeutic Exercises Supine Exercises Head Clock Supine Exercise Name I/S pt in Head clock ex for 3 & 9 oclock (rot) Side bilateral Reps/Minutes 2' Neck/Torso Rot Supine Exercise Name Neck & Torso rot, slowly alternating sides Side bilateral Reps/Minutes 5 SH x 5 Comments Extra time taken for proper performance of ex to max motion w/o stretch. Neck Elongation Supine Exercise Name Neck Elongation with gentle flattening of back of neck before lengthening Reps/Minutes 5 SH x 5 Comments Extra time taken for proper performance of ex. Cue to not lift chin. Shoulder rolls Supine Exercise Name Shoulder rolls Side bilateral Comments Extra time for training with explanations. C. SB Supine Exercise Name C. SB stretch Side bilateral Reps/Minutes 10 SH x 10 each Comments Extra time for retraining of max stretch, not into pain. C. Rot Supine Exercise Name C. alternating rot AROM stretch Side bilateral Reps/Minutes 10SH x 10 each Comments Extra time for retraining of max stretch, not into pain. Self-Care/Home Management Treatment Education Patient Education Home Exercise Program,Posture Other Education 8' Pt educated at length in head/neck/shoulder posturing in neutral spine, and effects of prolonged posturing with neck flex. Pt educated in ways to manage her pain. Pt also educated in proper posturing with neck elongation in sitting to decr fwd head posturing. Activities Self-Care/Home Management Activities Issued and reviewed handout for proper posturing. Issued & reviewed HEP: Neck Elongation, neck/torso rotation, shoulder rolls, and I/S in C. SB/rot. PT-OP-T Assessment and Plan Start: 12/06/21 10:10 Freq: Status: Active Protocol: Document 12/12/21 08:16 LRN (Rec: 12/12/21 09:03 LRN [id number]) Physical Therapy Assessment Goals Three Impairment Decreased neck mobility to the left hindering sleeping ability. Short Term Goal (STG) Review and make recommendations to sleeping position to minimize stress on the L side of neck. STG Duration 12/19/21 [employer] Goal (LTG) Improve neck mobility to make sleeping more comfortable. LTG Duration 03/09/22 Two Impairment Neck, upper shoulders and upper back pain. Impairment Neck pain rated 3-4/10 with reported L worse than R side. Upper shoulder: L 3/10 Upper back pain rated 4/10 Short Term Goal (STG) Pt will be educated in proper sitting posture. (12/12/21: Pt educated in proper sitting posture with handout issued) STG Duration 12/12/21 (12/12/21: MET GOAL) [employer] Goal (LTG) Decrease neck pain to 1-2/10. LTG Duration 03/09/22 One Impairment Lacks appropriate self care HEP. [employer] Goal (LTG) Pt will be independent on a self care HEP. (12/12/21: HEP: Neck Elongation, neck/torso rotation, shoulder rolls, and I/S in C. SB/rot) LTG Duration 03/09/22 (12/12/21: Progressed ) Assessment Summary Assessment Pt Blood pressure/HR today is good. Biceps, Triceps, Brachioradialis DTR's are absent bilaterally; therefore it appears systematic(?). Pt was very receptive and appeared to have a good understanding of head/neck neutral spine positioning, but was not able to maintain with neck elongation, requiring much verbal & phys cuing. Further training needed. Physical Therapy Plan Next Visit Focus/Plan Next Note Type Treatment Note Next Visit Plan Monitor blood pressure & pt history for colon CA. Test Vertebral artery in sitting. Nighttime postural training. Start US & STM (subocciput and C/S paraspinals), When [facility] cleared: manual suboccipital release and gentle manual C. traction. Ther ex & Neuro for C/S stab & for C. mobility. HEP as appropriate. End modalities if needed for pain.
--- NOTE | 2022-04-05 14:58 | PT.OPDS ---
Current Diagnoses Cervicalgia (12/12/21) Muscle weakness (generalized) (12/12/21) Visit Care Team Role Provider Type Kendall Garnica MD Attending Provider Physician Family Provider Primary Care Provider Referring Provider Specialty: Internal Medicine Address: [address] [place] [address], [phone] Email: [email or web address] Visit Number Visit Number 2 Discharge Summary PT-OP-B Current Condition Start: 12/06/21 10:10 Freq: Status: Active Protocol: Document 12/09/21 08:17 LRN (Rec: 12/09/21 12:34 LRN [id number]) Current Condition History of Current Condition Onset Date 4-5 months ago Current Complaints Pain is behind the head, down the neck and into shoulder L>R , & upper back History of Current Condition Has had chronic neck due to DDD. Pain increased 4-5 months ago that was thought due to sleeping wrong. Sleeps on stomach with the head turned left with a pillow that goes around the neck on the Left side. Head feels heavy. Takes meds ( hydrocodone) to get out of bed . Pt is R handed. Pt reported hgt, 5'5, weight 240#, BMI = 39.9 (Obese is BMI > 30). Pt reports blood pressure ranges from 129-141/ 72-91. Prior Treatments and Tests 4 yrs ago PT at [facility] PT and had relief of pain except in the spine. X-rays at [facility]. Pt states she was told she had DDD. [facility] being seen for neck, hip and R knee and low back, Dr. Villalobos. Saw Dr. Barriga and was being treated for swollen L lymph nodes. Future Testing and Treatments Planned Dr. Gallardo for R knee (in 2016) . Developmental History Developmental History Had PT at [facility], 4 yrs ago with Virginia Olsen, PT. Chose to not have surgery on the spine. R knee TKA 2016. Gall Bladder removed 2011, Appy age 12. Treatment Goals Patient/Caregiver Goals Pt goal is: Imiprove the neck mobility to make sleeping more comfortable . Decrease neck pain to 1-2/10. Prior Functional Status Baseline Function- ADL's Modified Independent Baseline Function- Mobility Modified Independent Baseline Function- Gait Gait with 4WW chair walker Baseline Function- Other Lives with speech impaired son . Pain in neck 1-2/10 in the spine Current Functional Impairments (Reported) Functional Limitations- ADL's Pain in neck rated 4-5/10. Hard to sleep and can't get comfortable. Must sleep on stomach due to R hip and knee pain, and due to gastroc refulx. Wakes every 3 hours due to bladder issue. Difficulty moving the neck to the left. Functional Limitations- Mobility/Gait Gait with 4WW chair walker. Walks daily with 4WW. Has lost 100# in last 2 yrs. Personal Factors Other Personal Factors That May Effect Sleep on stomach due to other Therapy/Recovery health issues. Helps take care of her 36 yr old speech impediment disabled son. Fibromylagia, Osteoporosis, Diabetes type II, HBP not well controlled with meds, Bipolar disorder. PT-OP-C Subjective Start: 12/06/21 10:10 Freq: Status: Active Protocol: Document 12/12/21 08:16 LRN (Rec: 12/12/21 09:03 LRN [id number]) OP-PT Subjective Patient Comments Patient Comments States she was cutting cheng peppers and started to get shooting pain down the middle of the neck and L arm. Stopped activity and rested and the pain in the arm went away. BP today: 136/71, HR 71. States yesterday 4pm was 149/72, hr 74, after pain med. PT-OP-H Neuro Start: 12/06/21 10:10 Freq: Status: Active Protocol: Document 12/12/21 08:16 LRN (Rec: 12/12/21 09:03 LRN [id number]) Deep Tendon Reflex & Clonus Assessment Deep Tendon Reflex Bilateral Brachioradialis Deep Tendon Reflex 0 Absent Bilateral Tricep Deep Tendon Reflex 0 Absent Bilateral Bicep Deep Tendon Reflex 0 Absent PT-OP-J Posture/Palpation/Skin Start: 12/06/21 10:10 Freq: Status: Active Protocol: Document 12/09/21 08:17 LRN (Rec: 12/09/21 12:34 LRN [id number]) Posture Evaluation Position Sitting Head/C-Spine Posture Forward Head Shoulder Posture (L) Rounded,(L) Forward,(L) Elevated Palpation Assessment Location Upper Back Palpation Location L upper Thoracic paraspinal, Rhomboids Palpation Findings Soft Tissue Tightness,Muscle Guarding,Tenderness Neck region Palpation Location maile Subocciput, L UT/C paraspinals. Palpation Findings Soft Tissue Tightness,Muscle Guarding,Tenderness PT-OP-K Range of Motion Start: 12/06/21 10:10 Freq: Status: Active Protocol: Document 12/09/21 08:17 LRN (Rec: 12/09/21 12:34 LRN [id number]) Cervical Spine Range of Motion Cervical Spine Active Degrees Testing Position Sitting Flexion 65 Extension 27 Rotation Left 30 Rotation Right 35 Lateral Flexion Left 12 Lateral Flexion Right 20 ROM Limitations Soft Tissue Tightness,Pain PT-OP-L Special Tests Start: 12/06/21 10:10 Freq: Status: Active Protocol: Document 12/09/21 08:17 LRN (Rec: 12/09/21 12:34 LRN [id number]) Special Tests Cervical Spine Special Tests Spurling's Test Test Results + L Comments Pain at L side of neck Traction Test Results + Comments Subocciptial pain decreased, increased spine pain Foraminal Compression Test Results + Comments Pain in spine PT-OP-M Strength Start: 12/06/21 10:10 Freq: Status: Active Protocol: Document 12/09/21 08:17 LRN (Rec: 12/09/21 12:34 LRN [id number]) Cervical Spine Strength Cervical Spine Manual Muscle Testing Testing Position Sitting Flexion (C1-2) 4- Good- Extension 4- Good- Rotation Left 3- Fair- Rotation Right 3+ Fair+ Lateral Flexion Left (C3) 3 Fair Lateral Flexion Right (C3) 4- Good- Comments Pain with L rotation. PT-OP-T Assessment and Plan Start: 12/06/21 10:10 Freq: Status: Active Protocol: Document 04/05/22 14:55 LRN (Rec: 04/05/22 14:58 LRN [id number]) Physical Therapy Assessment Goals Three Impairment Decreased neck mobility to the left hindering sleeping ability. Short Term Goal (STG) Review and make recommendations to sleeping position to minimize stress on the L side of neck. STG Duration 12/19/21 (04/05/22: NOT MET GOAL) [facility] Goal (LTG) Improve neck mobility to make sleeping more comfortable. LTG Duration 03/09/22 (04/05/22: NOT MET GOAL) Two Impairment Neck, upper shoulders and upper back pain. Impairment Neck pain rated 3-4/10 with reported L worse than R side. Upper shoulder: L 3/10 Upper back pain rated 4/10 Short Term Goal (STG) Pt will be educated in proper sitting posture. (12/12/21: Pt educated in proper sitting posture with handout issued) STG Duration 12/12/21 (12/12/21: MET GOAL) [facility] Goal (LTG) Decrease neck pain to 1-2/10. LTG Duration 03/09/22 (04/05/22: NOT MET GOAL) One Impairment Lacks appropriate self care HEP. [employer] Goal (LTG) Pt will be independent on a self care HEP. (12/12/21: HEP: Neck Elongation, neck/torso rotation, shoulder rolls, and I/S in C. SB/rot) LTG Duration 03/09/22 (12/12/21: Progressed , goal not met) Assessment Summary Assessment Pt was seen for an initial evaluation and one treatment visit. Message received from pt that MD wants pt to only receive massage therapy; therefore to DC physical therapy. No further therapy planned. Physical Therapy Plan Discharge Physical Therapy Discharge Reasons Patient Request Discharge Comments Pt seeking only massage therapy services, per MD request. Thank you for your referral.
== END 2022-04-07 10:49 | disposition home or self-care (01) ==
LOC: PHYS 08:15
PROVIDERS: Family Provider Internal Medicine; PCP Internal Medicine; Referring Provider Internal Medicine; Visit Provider Internal Medicine
DX: M54.2 Cervicalgia (principal); M62.81 Muscle weakness (generalized)
CPT/HCPCS: 97110; 97162; 97535

== ENCOUNTER → 2021-12-31 10:24 | Outpatient (CLI) | payer MEDICARE, MEDICAID, SELFPAY ==
[2021-12-31 11:08] LABS: Hemoglobin A1C% w Est Avg Glu 8.6 % (4.0-6.0)
[2021-12-31 11:32] LABS: Creatinine Urine Random 40.6 mg/dL
[2021-12-31 11:36] LABS: Microalbumin Urine Random < 0.6 mg/dL (0-1.6)
== END ==
PROVIDERS: Family Provider Internal Medicine; PCP Internal Medicine; Referring Provider Internal Medicine; Visit Provider Internal Medicine
DX: E11.42 Type 2 diabetes mellitus with diabetic polyneuropathy (principal); Z79.4 Long term (current) use of insulin
CPT/HCPCS: 36415; 82043; 82570; 83036

== ENCOUNTER → 2022-01-26 15:41 | Outpatient (CLI) | payer MEDICARE, MEDICAID, SELFPAY ==
--- NOTE | 2022-01-26 15:43 | DI.RAD.S_ITS ---
PROCEDURE: XR FOOT LT MIN 3V INDICATIONS: Dorsal foot swelling TECHNIQUE: 3 views of the foot were acquired. COMPARISON: [facility], CR, XR FOOT LT MIN 3V, 10/15/2018, 10:56. FINDINGS: Bones: No fractures or dislocations. No suspicious bony lesions. Calcaneal spur is present. Scattered IP degenerative narrowing. Soft tissues: No tibiotalar joint effusion. Achilles tendon appears normal. IMPRESSION: No visualized acute fracture or dislocation. However, if clinical concern and/or pain persist, short interval imaging followup in 7-10 days is recommended, as occult injury cannot be definitively excluded. Dictated by: Aliza Stanley M.D. on 01/26/2022 at 16:42 Approved by: Aliza Stanley M.D. on 01/26/2022 at 16:43
== END ==
PROVIDERS: Family Provider Internal Medicine; PCP Internal Medicine; Referring Provider Student in an Organized Health Care Education/Training Program; Visit Provider Student in an Organized Health Care Education/Training Program
DX: M79.672 Pain in left foot (principal); M77.32 Calcaneal spur, left foot
CPT/HCPCS: 73630

== ENCOUNTER → 2022-03-07 18:43 | Outpatient (CLI) | payer MEDICARE, MEDICAID, SELFPAY ==
[2022-03-07 19:57] LABS: COVID19 -Nasal RAPID POSITIVE (Negative)
== END ==
PROVIDERS: Family Provider Internal Medicine; PCP Internal Medicine; Visit Provider Nurse Practitioner Critical Care Medicine
DX: U07.1 COVID-19 (principal)
CPT/HCPCS: 87635

== ENCOUNTER → 2022-04-10 09:20 | Outpatient (CLI) | payer MEDICARE, MEDICAID, SELFPAY ==
[2022-04-10 10:59] LABS: Hemoglobin A1C% w Est Avg Glu 9.5 % (4.0-6.0)
== END ==
PROVIDERS: Family Provider Internal Medicine; PCP Internal Medicine; Referring Provider Internal Medicine; Visit Provider Internal Medicine
DX: E11.42 Type 2 diabetes mellitus with diabetic polyneuropathy (principal)
CPT/HCPCS: 36415; 83036

== ENCOUNTER → 2022-04-22 10:37 | Outpatient (CLI) | payer MEDICARE, MEDICAID, SELFPAY ==
[2022-04-23 12:32] LABS: Fecal Immunochemical Test Negative (Negative)
== END ==
PROVIDERS: Family Provider Internal Medicine; PCP Internal Medicine; Referring Provider Internal Medicine; Visit Provider Internal Medicine
DX: Z12.11 Encounter for screening for malignant neoplasm of colon (principal); Z12.12 Encounter for screening for malignant neoplasm of rectum
CPT/HCPCS: 82274

== ENCOUNTER → 2022-05-20 16:47 | Outpatient (CLI) | payer MEDICARE, MEDICAID, SELFPAY ==
--- NOTE | 2022-05-20 16:49 | DI.RAD.S_ITS ---
PROCEDURE: XR HUMERUS RT 2V INDICATIONS: Right humerus pain TECHNIQUE: Two views of the humerus were acquired. COMPARISON: None. FINDINGS: Bones: No fractures or dislocations. No suspicious bony lesions. Soft tissues: Small soft tissue calcifications adjacent to the rotator cuff insertion site near humeral head. IMPRESSION: Changes suspicious for calcific tendinitis of the rotator cuff. Dictated by: Ariadne Bishop M.D. on 05/21/2022 at 12:55 Approved by: Ariadne Bishop M.D. on 05/21/2022 at 12:56
== END ==
PROVIDERS: Family Provider Internal Medicine; PCP Internal Medicine; Referring Provider Nurse Practitioner Family; Visit Provider Nurse Practitioner Family
DX: M89.8X2 Other specified disorders of bone, upper arm (principal)
CPT/HCPCS: 73060

== ENCOUNTER → 2022-07-13 08:52 | Outpatient (CLI) | payer MEDICARE, MEDICAID, SELFPAY ==
[2022-07-13 11:17] LABS: Hemoglobin A1C% w Est Avg Glu 9.2 % (4.0-6.0)
[2022-07-13 11:44] LABS: Alanine Aminotransferase 14 IU/L (<35); Albumin 3.9 g/dL (3.5-5.0); Albumin Globulin Ratio 1.4 (1.0-2.8); Alkaline Phosphatase 90 U/L (38-126); Aspartate Aminotransferase 15 IU/L (14-36); BUN Creatinine Ratio 23.1 (6-22); Bilirubin Total 0.4 mg/dL (0.2-1.3); Blood Urea Nitrogen 12 mg/dL (7-17); Carbon Dioxide 27 mmol/L (22-32); Chloride 99 mmol/L (98-107); Cholesterol 181 mg/dL (140-199); Estimated Glomerular Filt Rate > 60 mL/min (>60); Globulin 2.8 g/dL (1.7-4.1); Glucose 208 mg/dL (80-110); HDL Cholesterol 50 mg/dL (40-60); HEMOLYSIS < 15 (0-50); LDL Cholesterol Calculated 92 mg/dL (<100); Sodium 136 mmol/L (137-145); Total Protein 6.7 g/dL (6.3-8.2); Triglycerides 193 mg/dL (35-150)
== END ==
PROVIDERS: Family Provider Internal Medicine; PCP Internal Medicine; Referring Provider Internal Medicine; Visit Provider Internal Medicine
DX: E78.2 Mixed hyperlipidemia (principal); I10 Essential (primary) hypertension; E08.42 Diabetes mellitus due to underlying condition with diabetic polyneuropathy
CPT/HCPCS: 36415; 80053; 80061; 83036

== ENCOUNTER → 2022-07-21 07:17 | Outpatient (CLI) | payer MEDICARE, MEDICAID, SELFPAY ==
--- NOTE | 2022-07-21 | DI.MG.S_ITS ---
BILATERAL DIGITAL SCREENING MAMMOGRAM 3D/2D WITH CAD: 07/21/2022 CLINICAL: Routine screening. Comparison is made to exams dated: 07/11/2021 mammogram, 07/09/2020 mammogram, and 04/04/2019 mammogram - [facility]. There are scattered areas of fibroglandular density in both breasts (category b / 25%-50% glandular tissue). Current study was also evaluated with a Computer Aided Detection (CAD) system. There are benign calcifications in both breasts. No significant masses, calcifications, or other findings are seen in either breast. There has been no significant interval change. IMPRESSION: BENIGN There is no mammographic evidence of malignancy. A 1 year screening mammogram is recommended. Based on the Tyrer Cuzick model (a risk assessment model) the patient's lifetime risk is 5.3% and her 10 year risk is 2.3%. According to the ACR, ACS, and NCCN guidelines, an annual breast MRI exam along with mammogram is recommended if the patient's lifetime risk is 20% or greater. This exam was interpreted at Station ID: [id number]. NOTE: For mammograms, a report in lay terms will be sent to the patient. Approximately 15% of breast malignancies will not be visualized mammographically. In the management of a palpable breast mass, a negative mammogram must not discourage biopsy of a clinically suspicious lesion. Electronically Signed By: Ross godinez/courtney:07/21/2022 08:21:57 letter sent: Normal Exam ACR BI-RADS Category 2: Benign Finding(s) [id number]
== END ==
PROVIDERS: Family Provider Internal Medicine; PCP Internal Medicine; Referring Provider Internal Medicine; Visit Provider Internal Medicine
DX: Z12.31 Encounter for screening mammogram for malignant neoplasm of breast (principal)
CPT/HCPCS: 77063; 77067

== ENCOUNTER → 2022-10-07 16:48 | Outpatient (CLI) | payer MEDICARE, MEDICAID, SELFPAY ==
[2022-10-07 18:34] LABS: BUN Creatinine Ratio 25.9 (6-22); Blood Urea Nitrogen 14 mg/dL (7-17); Carbon Dioxide 32 mmol/L (22-32); Chloride 99 mmol/L (98-107); Estimated Glomerular Filt Rate > 60 mL/min (>60); Glucose 142 mg/dL (80-110); HEMOLYSIS < 15 (0-50); Potassium 3.6 mmol/L (3.4-5.1); Sodium 136 mmol/L (137-145)
[2022-10-08 21:13] LABS: Labcorp Hemoglobin (Hb) A1c 8.4 % (4.8-5.6)
== END ==
PROVIDERS: Family Provider Internal Medicine; PCP Internal Medicine; Referring Provider Internal Medicine; Visit Provider Internal Medicine
DX: E11.42 Type 2 diabetes mellitus with diabetic polyneuropathy (principal)
CPT/HCPCS: 36415; 80048; 83036

== ENCOUNTER → 2022-10-17 07:03 | Outpatient (CLI) | payer MEDICARE, MEDICAID, SELFPAY ==
[2022-10-17 09:44] LABS: Prothrombin Time 11.4 SECONDS (10.1-12.7)
[2022-10-17 09:47] LABS: PTT Partial Thromboplastin Tim 29 SECONDS (26-36)
== END ==
PROVIDERS: Family Provider Internal Medicine; PCP Internal Medicine; Referring Provider Internal Medicine; Visit Provider Internal Medicine
DX: D68.9 Coagulation defect, unspecified (principal)
CPT/HCPCS: 36415; 85610; 85730

== ENCOUNTER 2022-11-14 19:16 | Emergency (ER) | payer MEDICARE, MEDICAID, SELFPAY ==
[2022-11-14 19:30] VITALS: BP 197/98; PULSE 73; RESP 16; TEMP 37; O2SAT 98; BMI 37.4
== END 2022-11-14 20:05 | disposition left against medical advice (07) ==
PROVIDERS: Emergency Provider Emergency Medicine; Family Provider Internal Medicine; PCP Internal Medicine
CPT/HCPCS: 99281

== ENCOUNTER → 2022-11-24 07:36 | Outpatient (CLI) | payer MEDICARE, MEDICAID, SELFPAY ==
--- NOTE | 2022-11-24 07:48 | DI.RAD.S_ITS ---
PROCEDURE: XR TIBIA FUBULA RT 2V INDICATIONS: eval mass R anterior-superior tibia TECHNIQUE: 2 views of the tibia and fibula were acquired. COMPARISON: None. FINDINGS: Bones: There is prior right total knee arthroplasty. Right knee alignment is anatomic. No evidence of hardware loosening or failure. There is no fracture or dislocation. No bony erosive changes or abnormal periosteal reaction. No suspicious bony lesions. Soft tissues: Soft tissue swelling over anterior aspect of proximal tibial shaft is seen without abnormal calcifications or subcutaneous emphysema. IMPRESSION: Soft tissue prominence along anterior aspect of proximal right tibial shaft without underlying osseous involvement. No abnormal soft tissue calcifications. Dictated by: Tha Ibarra M.D. on 11/24/2022 at 8:16 Approved by: Tha Ibarra M.D. on 11/24/2022 at 8:18
== END ==
PROVIDERS: Family Provider Internal Medicine; PCP Internal Medicine; Referring Provider Student in an Organized Health Care Education/Training Program; Visit Provider Student in an Organized Health Care Education/Training Program
DX: M79.604 Pain in right leg (principal); M79.89 Other specified soft tissue disorders
CPT/HCPCS: 73590

== ENCOUNTER → 2022-12-14 13:53 | Outpatient (CLI) | payer MEDICARE, MEDICAID, SELFPAY ==
--- NOTE | 2022-12-14 13:55 | DI.RAD.S_ITS ---
PROCEDURE: XR SHOULDER RT MIN 2V INDICATIONS: R shoulder pain/poss injury TECHNIQUE: 3 views of the shoulder were acquired. COMPARISON: [facility], , SHOULDER MINIMUM 2 VIEW LEFT, 03/21/2012, 14:05. FINDINGS: Bones: No fractures or dislocations. No suspicious bony lesions. Moderate degenerative change at the right shoulder. Visualized ribs appear intact. Soft tissues: No suspicious soft tissue calcifications. Calcification in the region of the rotator cuff. IMPRESSION: Calcification in the region of the rotator cuff. This is likely the sequelae of prior calcific tendinitis. Moderate right shoulder DJD. Dictated by: Marito Isaacs M.D. on 12/14/2022 at 16:00 Approved by: Marito Isaacs M.D. on 12/14/2022 at 16:01
== END ==
PROVIDERS: Family Provider Internal Medicine; PCP Internal Medicine; Referring Provider Student in an Organized Health Care Education/Training Program; Visit Provider Student in an Organized Health Care Education/Training Program
DX: S46.911A Strain of unspecified muscle, fascia and tendon at shoulder and upper arm level, right arm, initial encounter (principal); M19.011 Primary osteoarthritis, right shoulder; M25.811 Other specified joint disorders, right shoulder; M25.511 Pain in right shoulder
CPT/HCPCS: 73030

== ENCOUNTER 2022-12-17 09:15 | Outpatient (RCR) | payer MEDICARE, MEDICAID, SELFPAY ==
--- NOTE | 2022-10-26 12:39 | PT.OIE ---
Current Diagnoses Primary osteoarthritis, unspecified site (10/26/22) Patellofemoral disorders, right knee (10/26/22) Patellofemoral disorders, left knee (10/26/22) Muscle weakness (generalized) (10/26/22) Unsteadiness on feet (10/26/22) Other abnormalities of gait and mobility (10/26/22) Past Medical History (Last Reviewed 10/23/22 @ 13:27 by JESSIE Bender) Asthma Carpal tunnel syndrome Cervical lymphadenitis Cervical spine disease Chronic back pain Chronic, continuous use of opioids Cubital tunnel syndrome Diabetic neuropathy associated with diabetes mellitus due to underlying condition Elevated lipids Essential hypertension Family history of clotting disorder Fibromyalgia Gout H/O: HTN (hypertension) History of asthma History of bipolar disorder History of urinary incontinence Hx of non-insulin dependent diabetes mellitus Mixed hyperlipidemia Osteopenia Patellofemoral arthralgia of both knees Primary osteoarthritis Type 2 diabetes mellitus with diabetic polyneuropathy Wears glasses Past Surgical History (Last Reviewed 10/23/22 @ 13:27 by JESSIE Bender) Anesthesia History of cholecystectomy History of tubal ligation S/P total knee replacement (~06/2015) Status post appendectomy (~1971) Status post hysterectomy Status post hysterectomy Visit Care Team Role Provider Type Kendall Garnica MD Attending Provider Physician Family Provider Primary Care Provider Referring Provider Specialty: Internal Medicine Address: [address] [place] [address], [facility] Email: [email or web address] Physical Therapy Initial Evaluation PT-OP-A Visit Information Start: 10/26/22 12:01 Freq: Status: Active Protocol: Document 10/26/22 09:30 DCW (Rec: 10/26/22 12:24 DCW [id number]) Out-Patient Physical Therapy Visit Information Visit Information Visit Type Initial Evaluation Visit Start Time 09:30 Visit Stop Time 10:15 Total Visit Minutes 45 Visit Number 1 Number of HYDRAULIC TECHNICIAN Visits 0 Evaluation Information Evaluation Date 10/26/22 PT-OP-B Current Condition Start: 10/26/22 12:01 Freq: Status: Active Protocol: Document 10/26/22 09:30 DCW (Rec: 10/26/22 12:24 DCW [id number]) Current Condition History of Current Condition Onset Date 2015 Current Complaints Knee pain, difficulty walking, fatigue History of Current Condition Pt is a 62 year old female presenting with a long- standing history of bilateral knee pain. Pt underwent a R TKA in 2016, and feels she never truly recovered from it, experiencing pain ever since. Pt notes that also, due to the changed in gait because of her right knee, her left knee has also been bothering her ever since surgery. Pt continues to experience swelling, which is worsened by walking or just spending time up throughout the day. Already spends a lot of time with her feet elevated, icing her knees, and uses compression stockings, but still had increased right LE edema and joint effusion. Pt still tried to walk every day, will either walk to [employer] and then walk two laps, or walk down to [employer] to do her shopping, although she has to take the bus back. Pt uses 4WW for ambulation outside of her home, furniture walks when inside. Prior Treatments and Tests 2016 R TKA Personal Factors Other Personal Factors That May Effect Asthma, cervical DJD, chronic Therapy/Recovery LBP, HTN, Fibromyalgia, OA, DM II/Neuropathy PT-OP-C Subjective Start: 10/26/22 12:01 Freq: Status: Active Protocol: Document 10/26/22 09:30 DCW (Rec: 10/26/22 12:24 DCW [id number]) OP-PT Subjective Patient Comments Patient Comments It's been 7-8 years since my knee replacement, I just don't think it should still hurt. Patient Questionnaires Lower Extremity Functional Scale LEFS Score 27/80 = 33.75% LEFS Impairment 60 to 79% Impaired (Score 17- 31) OP-PT Pain Assessment Pain Assessment Grid Paper Pain Assessment Grid Completed See scan PT-OP-E Functional Tests Start: 10/26/22 12:01 Freq: Status: Active Protocol: Document 10/26/22 09:30 DCW (Rec: 10/26/22 12:24 DCW [id number]) Functional Tests 2 Minute Walk Test Distance 320' Device Used 4WW Comments 2.66 ft/sec 30 Second Sit to Stand Test Score 6 repetitions Timed Up and Go (TUG) Score 21.63 /s AD Comments Three-trial average (24.19, 21 .04, 19.63) TUG Impairment Rating 100% Impaired (Score 20) PT-OP-F Manual Assessment Start: 10/26/22 12:37 Freq: Status: Active Protocol: Document 10/26/22 09:30 DCW (Rec: 10/26/22 12:39 DCW [id number]) Manual Assessments Joint Mobility Assessment Joint Mobility Assessment severe lateral deviation of bilateral patella at rest, remain laterally pulled during knee extension, poor VMO activation PT-OP-G Mobility & Gait Start: 10/26/22 12:01 Freq: Status: Active Protocol: Document 10/26/22 09:30 DCW (Rec: 10/26/22 12:24 DCW [id number]) OP Gait Assessment Comments Gait Comments Pt ambulates with moderate trendelenberg gait pattern using 4WW, increased knee valgus in standing. Appropriate neutral positioning of feet, no excessive foot rotation. PT-OP-K Range of Motion Start: 10/26/22 12:01 Freq: Status: Active Protocol: Document 10/26/22 09:30 DCW (Rec: 10/26/22 12:24 DCW [id number]) Knee Goniometric Range of Motion Knee Right Patient Position Supine Flexion Active (degrees) 112 Extension Active (degrees) 8 Left Patient Position Supine Flexion Active (degrees) 124 Extension Active (degrees) 3 PT-OP-L Special Tests Start: 10/26/22 12:37 Freq: Status: Active Protocol: Document 10/26/22 09:30 DCW (Rec: 10/26/22 12:39 DCW [id number]) Special Tests Knee Special Tests Patellar Grind Test Test Results Positive bilaterally Patella Tap Test Results Positive right Dsouza Chondromalacia Test Results Positive bilaterally PT-OP-M Strength Start: 10/26/22 12:01 Freq: Status: Active Protocol: Document 10/26/22 09:30 DCW (Rec: 10/26/22 12:24 DCW [id number]) Hip Strength Hip Manual Muscle Testing Right Flexion (L2) 4 Good Abduction 4- Good- Adduction 4 Good External Rotation 4 Good Internal Rotation 4 Good Left Flexion (L2) 4 Good Abduction 4- Good- Adduction 4 Good External Rotation 4 Good Internal Rotation 4 Good Knee Strength Knee Manual Muscle Testing Right Flexion (S2) 3+ Fair+ Extension (L3) 4- Good- Left Flexion (S2) 4+ Good+ Extension (L3) 4+ Good+ Ankle/Foot Strength Ankle and Foot Manual Muscle Testing Right Dorsiflexion (L4) 4 Good Left Dorsiflexion (L4) 4 Good PT-OP-T Assessment and Plan Start: 10/26/22 12:01 Freq: Status: Active Protocol: Document 10/26/22 09:30 DCW (Rec: 10/26/22 12:37 DCW [id number]) Physical Therapy Assessment Rehab Potential Rehabilitation Potential Fair Evaluation Complexity Number of Personal Factors/Comorbidities 3 or More Number of Body Systems Impaired 4 or More Clinical Presentation at Evaluation Unstable Impairments Impairments Activity Tolerance,Balance, Functional Activities, Functional Mobility,Gait,Pain, ROM,Soft Tissue Mobility, Strength Goals Three Impairment Pt exhibits poor patellofemoral tracking bilaterally Small Business Director Goal (LTG) Pt to exhibit bilateral patellofemoral tracking which at the very least improved from lateral pull to neutral pull during leg extension LTG Duration 01/24/23 One Impairment Pt does not have an appropriate home exercise program Short Term Goal (STG) Pt to be independent and compliant with an appropriate HEP STG Duration 11/26/22 Two Impairment Pt performs 6 repetitions during 30 second Sit to Stand Nursing Home Goal (LTG) Pt to increase score on 30 sec Sit to Stand to at least 10 repetitions in order to demonstrate improvement in functional mobility and get closer to age-related norms. LTG Duration 01/24/23 Assessment Summary Assessment Pt presents with signs and symptoms consistent with patellofemoral tracking dysfunction, LE weakness ( especially VMO and hip abductors), gait difficulty, poor activity tolerance, and decreased knee ROM. Pt exhibits positive patellar grind tests, has a significant lateral patellar deviation bilaterally, ambulates with a notable Trendelenberg gait pattern, and displays limited tolerance to activity, only able to perform 6 repetitions during the 30 second Sit to Stand test, with her age- related normative values being ~14 repetitions. This has clearly been a long-standing issue for this pt, and she will likely benefit from skilled therapy focusing on improving joint mobility, strength, flexibility, gait training, and decreased reliance on assistive devices. Physical Therapy Plan Frequency and Duration Frequency of Treatment 1-2x/week Plan of Care Start Date 10/26/22 Plan of Care End Date 01/24/23 Therapeutic Interventions Therapeutic Interventions Balance Training,Gait Training ,Home Exercise Program,Joint Mobilizations,Manual Therapy, Neuromuscular Re-education, Patient/Caregiver Education, Self-Care/Home Management,Soft Tissue Mobilization,Taping, Therapeutic Activities, Therapeutic Exercises Modalities Cold Pack/Ice Massage,Electric Stimulation,Hot Packs, Ultrasound Next Visit Focus/Plan Next Note Type Treatment Note Next Visit Plan L Estrengthing, patellar mobilizations, patellar taping if tolerated
--- NOTE | 2022-10-26 12:40 | PT.OPPOC ---
Physical, Occupational & Speech Therapy At [facility] Current Diagnoses Primary osteoarthritis, unspecified site (10/26/22) Patellofemoral disorders, right knee (10/26/22) Patellofemoral disorders, left knee (10/26/22) Muscle weakness (generalized) (10/26/22) Unsteadiness on feet (10/26/22) Other abnormalities of gait and mobility (10/26/22) Visit Care Team Role Provider Type Kendall Garnica MD Attending Provider Physician Family Provider Primary Care Provider Referring Provider Specialty: Internal Medicine Address: [address] [place] [address] Email: [email or web address] Plan Of Care PT-OP-T Assessment and Plan Start: 10/26/22 12:01 Freq: Status: Active Protocol: Document 10/26/22 09:30 DCW (Rec: 10/26/22 12:37 DCW [id number]) Physical Therapy Assessment Rehab Potential Rehabilitation Potential Fair Evaluation Complexity Number of Personal Factors/Comorbidities 3 or More Number of Body Systems Impaired 4 or More Clinical Presentation at Evaluation Unstable Impairments Impairments Activity Tolerance,Balance, Functional Activities, Functional Mobility,Gait,Pain, ROM,Soft Tissue Mobility, Strength Goals Three Impairment Pt exhibits poor patellofemoral tracking bilaterally Baggage Porter Goal (LTG) Pt to exhibit bilateral patellofemoral tracking which at the very least improved from lateral pull to neutral pull during leg extension LTG Duration 01/24/23 One Impairment Pt does not have an appropriate home exercise program Short Term Goal (STG) Pt to be independent and compliant with an appropriate HEP STG Duration 11/26/22 Two Impairment Pt performs 6 repetitions during 30 second Sit to Stand Fdc Goal (LTG) Pt to increase score on 30 sec Sit to Stand to at least 10 repetitions in order to demonstrate improvement in functional mobility and get closer to age-related norms. LTG Duration 01/24/23 Assessment Summary Assessment Pt presents with signs and symptoms consistent with patellofemoral tracking dysfunction, LE weakness ( especially VMO and hip abductors), gait difficulty, poor activity tolerance, and decreased knee ROM. Pt exhibits positive patellar grind tests, has a significant lateral patellar deviation bilaterally, ambulates with a notable Trendelenberg gait pattern, and displays limited tolerance to activity, only able to perform 6 repetitions during the 30 second Sit to Stand test, with her age- related normative values being ~14 repetitions. This has clearly been a long-standing issue for this pt, and she will likely benefit from skilled therapy focusing on improving joint mobility, strength, flexibility, gait training, and decreased reliance on assistive devices. Physical Therapy Plan Frequency and Duration Frequency of Treatment 1-2x/week Plan of Care Start Date 10/26/22 Plan of Care End Date 01/24/23 Therapeutic Interventions Therapeutic Interventions Balance Training,Gait Training ,Home Exercise Program,Joint Mobilizations,Manual Therapy, Neuromuscular Re-education, Patient/Caregiver Education, Self-Care/Home Management,Soft Tissue Mobilization,Taping, Therapeutic Activities, Therapeutic Exercises Modalities Cold Pack/Ice Massage,Electric Stimulation,Hot Packs, Ultrasound Next Visit Focus/Plan Next Note Type Treatment Note Next Visit Plan L Estrengthing, patellar mobilizations, patellar taping if tolerated Plan of Care Dates Plan of Care Start Date 10/26/22 Plan of Care End Date 01/24/23 Electronically Signed by: Zurdo Montalvo, PT 10/26/22 [id number] If you are in agreement with this Plan of Care, please return a signed and dated copy. I have reviewed this Plan of Care and certify that the skilled therapy services above are required to meet the patient?s needs. Physician Signature Date Printed Name and Credentials Clinical Instructor Signature Printed Name and Credentials
--- NOTE | 2022-10-29 17:21 | PT.OTN ---
Current Diagnoses Primary osteoarthritis, unspecified site (10/29/22) Patellofemoral disorders, right knee (10/29/22) Patellofemoral disorders, left knee (10/29/22) Muscle weakness (generalized) (10/29/22) Unsteadiness on feet (10/29/22) Other abnormalities of gait and mobility (10/29/22) Physical Therapy Treatment Note PT-OP-A Visit Information Start: 10/26/22 12:01 Freq: Status: Active Protocol: Document 10/29/22 16:30 DCW (Rec: 10/29/22 17:21 DCW [id number]) Out-Patient Physical Therapy Visit Information Visit Information Visit Type Treatment Note Visit Start Time 16:30 Visit Stop Time 17:15 Total Visit Minutes 45 Visit Number 2 Number of MACHINE ROOM OPERATOR Visits 0 Evaluation Information Evaluation Date 10/26/22 PT-OP-B Current Condition Start: 10/26/22 12:01 Freq: Status: Active Protocol: Document 10/26/22 09:30 DCW (Rec: 10/26/22 12:24 DCW [id number]) Current Condition History of Current Condition Onset Date 2016 Current Complaints Knee pain, difficulty walking, fatigue History of Current Condition Pt is a 62 year old female presenting with a long- standing history of bilateral knee pain. Pt underwent a R TKA in 2016, and feels she never truly recovered from it, experiencing pain ever since. Pt notes that also, due to the changed in gait because of her right knee, her left knee has also been bothering her ever since surgery. Pt continues to experience swelling, which is worsened by walking or just spending time up throughout the day. Already spends a lot of time with her feet elevated, icing her knees, and uses compression stockings, but still had increased right LE edema and joint effusion. Pt still tried to walk every day, will either walk to [facility] and then walk two laps, or walk down to [employer] to do her shopping, although she has to take the bus back. Pt uses 4WW for ambulation outside of her home, furniture walks when inside. Prior Treatments and Tests 2016 R TKA Personal Factors Other Personal Factors That May Effect Asthma, cervical DJD, chronic Therapy/Recovery LBP, HTN, Fibromyalgia, OA, DM II/Neuropathy PT-OP-C Subjective Start: 10/26/22 12:01 Freq: Status: Active Protocol: Document 10/29/22 16:30 DCW (Rec: 10/29/22 17:21 DCW [id number]) OP-PT Subjective Patient Comments Patient Comments Pt admits her knee is really miserable. PT-OP-E Functional Tests Start: 10/26/22 12:01 Freq: Status: Active Protocol: Document 10/26/22 09:30 DCW (Rec: 10/26/22 12:24 DCW [id number]) Functional Tests 2 Minute Walk Test Distance 320' Device Used 4WW Comments 2.66 ft/sec 30 Second Sit to Stand Test Score 6 repetitions Timed Up and Go (TUG) Score 21.63 /s AD Comments Three-trial average (24.19, 21 .04, 19.63) TUG Impairment Rating 100% Impaired (Score 20) PT-OP-F Manual Assessment Start: 10/26/22 12:37 Freq: Status: Active Protocol: Document 10/26/22 09:30 DCW (Rec: 10/26/22 12:39 DCW [id number]) Manual Assessments Joint Mobility Assessment Joint Mobility Assessment severe lateral deviation of bilateral patella at rest, remain laterally pulled during knee extension, poor VMO activation PT-OP-G Mobility & Gait Start: 10/26/22 12:01 Freq: Status: Active Protocol: Document 10/26/22 09:30 DCW (Rec: 10/26/22 12:24 DCW [id number]) OP Gait Assessment Comments Gait Comments Pt ambulates with moderate trendelenberg gait pattern using 4WW, increased knee valgus in standing. Appropriate neutral positioning of feet, no excessive foot rotation. PT-OP-K Range of Motion Start: 10/26/22 12:01 Freq: Status: Active Protocol: Document 10/26/22 09:30 DCW (Rec: 10/26/22 12:24 DCW [id number]) Knee Goniometric Range of Motion Knee Right Patient Position Supine Flexion Active (degrees) 112 Extension Active (degrees) 8 Left Patient Position Supine Flexion Active (degrees) 124 Extension Active (degrees) 3 PT-OP-L Special Tests Start: 10/26/22 12:37 Freq: Status: Active Protocol: Document 10/26/22 09:30 DCW (Rec: 10/26/22 12:39 DCW [id number]) Special Tests Knee Special Tests Patellar Grind Test Test Results Positive bilaterally Patella Tap Test Results Positive right Dsouza Chondromalacia Test Results Positive bilaterally PT-OP-M Strength Start: 10/26/22 12:01 Freq: Status: Active Protocol: Document 10/26/22 09:30 DCW (Rec: 10/26/22 12:24 DCW [id number]) Hip Strength Hip Manual Muscle Testing Right Flexion (L2) 4 Good Abduction 4- Good- Adduction 4 Good External Rotation 4 Good Internal Rotation 4 Good Left Flexion (L2) 4 Good Abduction 4- Good- Adduction 4 Good External Rotation 4 Good Internal Rotation 4 Good Knee Strength Knee Manual Muscle Testing Right Flexion (S2) 3+ Fair+ Extension (L3) 4- Good- Left Flexion (S2) 4+ Good+ Extension (L3) 4+ Good+ Ankle/Foot Strength Ankle and Foot Manual Muscle Testing Right Dorsiflexion (L4) 4 Good Left Dorsiflexion (L4) 4 Good PT-OP-Q Treatments Start: 10/26/22 12:01 Freq: Status: Active Protocol: Document 10/29/22 16:30 DCW (Rec: 10/29/22 17:21 DCW [id number]) Cardio Equipment Recumbent Elliptical ([employer] Duration (Minutes) 5 Resistance 3 Seat Position 7 Gym Equipment Shuttle Recovery Unilateral Squats Resistance 37# Shuttle Recovery Platform Stable Bilateral Squats Details Adductor Ball Squeeze Resistance 75# Shuttle Recovery Platform Stable Therapeutic Exercises Supine Exercises SLR Supine Exercise Name SLR /c ER Side bilateral Bridging Supine Exercise Name Bridging /c adductor ball squeeze Manual Therapy Treatment Joint Mobilizations Patella Joint R patella Direction Inf/sup, medial Grade III Body Position Supine Taping Medial patella pull Body Location R patella Treatment Focus Medial pull of patella Type of Tape Kinesio Tape PT-OP-T Assessment and Plan Start: 10/26/22 12:01 Freq: Status: Active Protocol: Document 10/29/22 16:30 DCW (Rec: 10/29/22 17:21 DCW [id number]) Physical Therapy Assessment Impairments Impairments Activity Tolerance,Balance, Functional Activities, Functional Mobility,Gait,Pain, ROM,Soft Tissue Mobility, Strength Goals Three Impairment Pt exhibits poor patellofemoral tracking bilaterally Hemodialysis Patient Care Specialist Goal (LTG) Pt to exhibit bilateral patellofemoral tracking which at the very least improved from lateral pull to neutral pull during leg extension LTG Duration 01/24/23 One Impairment Pt does not have an appropriate home exercise program Short Term Goal (STG) Pt to be independent and compliant with an appropriate HEP STG Duration 11/26/22 Two Impairment Pt performs 6 repetitions during 30 second Sit to Stand Hemodialysis Patient Care Specialist Goal (LTG) Pt to increase score on 30 sec Sit to Stand to at least 10 repetitions in order to demonstrate improvement in functional mobility and get closer to age-related norms. LTG Duration 01/24/23 Assessment Summary Assessment Pt tolerated treatment well, noted mild low back discomfort with bridging, but was able to eliminate pain with use of UEs under backside. Trial of k -tape to determine if medial pull of patella will alleviate some of pt's discomfort while walking. Physical Therapy Plan Frequency and Duration Frequency of Treatment 1-2x/week Plan of Care Start Date 10/26/22 Plan of Care End Date 01/24/23 Therapeutic Interventions Therapeutic Interventions Balance Training,Gait Training ,Home Exercise Program,Joint Mobilizations,Manual Therapy, Neuromuscular Re-education, Patient/Caregiver Education, Self-Care/Home Management,Soft Tissue Mobilization,Taping, Therapeutic Activities, Therapeutic Exercises Modalities Cold Pack/Ice Massage,Electric Stimulation,Hot Packs, Ultrasound Next Visit Focus/Plan Next Note Type Treatment Note Next Visit Plan L Estrengthing, patellar mobilizations, patellar taping if tolerated
--- NOTE | 2022-11-04 16:37 | PT.OTN ---
Current Diagnoses Primary osteoarthritis, unspecified site (11/04/22) Patellofemoral disorders, right knee (11/04/22) Patellofemoral disorders, left knee (11/04/22) Muscle weakness (generalized) (11/04/22) Unsteadiness on feet (11/04/22) Other abnormalities of gait and mobility (11/04/22) Physical Therapy Treatment Note PT-OP-A Visit Information Start: 10/26/22 12:01 Freq: Status: Active Protocol: Document 11/04/22 15:05 SW (Rec: 11/04/22 15:26 SW [id number]) Out-Patient Physical Therapy Visit Information Visit Information Visit Type Treatment Note Visit Start Time 13:00 Visit Stop Time 13:44 Total Visit Minutes 44 Visit Number 3 Number of WILLOWER Visits 1 PT-OP-B Current Condition Start: 10/26/22 12:01 Freq: Status: Active Protocol: Document 10/26/22 09:30 DCW (Rec: 10/26/22 12:24 DCW [id number]) Current Condition History of Current Condition Onset Date 2016 Current Complaints Knee pain, difficulty walking, fatigue History of Current Condition Pt is a 62 year old female presenting with a long- standing history of bilateral knee pain. Pt underwent a R TKA in 2016, and feels she never truly recovered from it, experiencing pain ever since. Pt notes that also, due to the changed in gait because of her right knee, her left knee has also been bothering her ever since surgery. Pt continues to experience swelling, which is worsened by walking or just spending time up throughout the day. Already spends a lot of time with her feet elevated, icing her knees, and uses compression stockings, but still had increased right LE edema and joint effusion. Pt still tried to walk every day, will either walk to [facility] and then walk two laps, or walk down to [employer] to do her shopping, although she has to take the bus back. Pt uses 4WW for ambulation outside of her home, furniture walks when inside. Prior Treatments and Tests 2016 R TKA Personal Factors Other Personal Factors That May Effect Asthma, cervical DJD, chronic Therapy/Recovery LBP, HTN, Fibromyalgia, OA, DM II/Neuropathy PT-OP-C Subjective Start: 10/26/22 12:01 Freq: Status: Active Protocol: Document 11/04/22 13:00 SW (Rec: 11/04/22 13:45 SW [id number]) OP-PT Subjective Patient Comments Patient Comments Pt reports she was able to go 4 laps around the park instead of the usual 3. Pain in her cyst is constant, but the K tape helped with the knee pain . PT-OP-E Functional Tests Start: 10/26/22 12:01 Freq: Status: Active Protocol: Document 10/26/22 09:30 DCW (Rec: 10/26/22 12:24 DCW [id number]) Functional Tests 2 Minute Walk Test Distance 320' Device Used 4WW Comments 2.66 ft/sec 30 Second Sit to Stand Test Score 6 repetitions Timed Up and Go (TUG) Score 21.63 /s AD Comments Three-trial average (24.19, 21 .04, 19.63) TUG Impairment Rating 100% Impaired (Score 20) PT-OP-F Manual Assessment Start: 10/26/22 12:37 Freq: Status: Active Protocol: Document 10/26/22 09:30 DCW (Rec: 10/26/22 12:39 DCW [id number]) Manual Assessments Joint Mobility Assessment Joint Mobility Assessment severe lateral deviation of bilateral patella at rest, remain laterally pulled during knee extension, poor VMO activation PT-OP-G Mobility & Gait Start: 10/26/22 12:01 Freq: Status: Active Protocol: Document 10/26/22 09:30 DCW (Rec: 10/26/22 12:24 DCW [id number]) OP Gait Assessment Comments Gait Comments Pt ambulates with moderate trendelenberg gait pattern using 4WW, increased knee valgus in standing. Appropriate neutral positioning of feet, no excessive foot rotation. PT-OP-K Range of Motion Start: 10/26/22 12:01 Freq: Status: Active Protocol: Document 10/26/22 09:30 DCW (Rec: 10/26/22 12:24 DCW [id number]) Knee Goniometric Range of Motion Knee Right Patient Position Supine Flexion Active (degrees) 112 Extension Active (degrees) 8 Left Patient Position Supine Flexion Active (degrees) 124 Extension Active (degrees) 3 PT-OP-L Special Tests Start: 10/26/22 12:37 Freq: Status: Active Protocol: Document 10/26/22 09:30 DCW (Rec: 10/26/22 12:39 DCW [id number]) Special Tests Knee Special Tests Patellar Grind Test Test Results Positive bilaterally Patella Tap Test Results Positive right Dsouza Chondromalacia Test Results Positive bilaterally PT-OP-M Strength Start: 10/26/22 12:01 Freq: Status: Active Protocol: Document 10/26/22 09:30 DCW (Rec: 10/26/22 12:24 DCW [id number]) Hip Strength Hip Manual Muscle Testing Right Flexion (L2) 4 Good Abduction 4- Good- Adduction 4 Good External Rotation 4 Good Internal Rotation 4 Good Left Flexion (L2) 4 Good Abduction 4- Good- Adduction 4 Good External Rotation 4 Good Internal Rotation 4 Good Knee Strength Knee Manual Muscle Testing Right Flexion (S2) 3+ Fair+ Extension (L3) 4- Good- Left Flexion (S2) 4+ Good+ Extension (L3) 4+ Good+ Ankle/Foot Strength Ankle and Foot Manual Muscle Testing Right Dorsiflexion (L4) 4 Good Left Dorsiflexion (L4) 4 Good PT-OP-Q Treatments Start: 10/26/22 12:01 Freq: Status: Active Protocol: Document 11/04/22 13:00 SW (Rec: 11/04/22 13:45 SW [id number]) Cardio Equipment Recumbent Elliptical ([employer]) Duration (Minutes) 6 Resistance 3 Seat Position 7 Gym Equipment Shuttle Recovery Unilateral Squats Resistance 37# Shuttle Recovery Platform Stable Bilateral Squats Details Adductor Ball Squeeze Resistance 75# Shuttle Recovery Platform Stable Therapeutic Exercises Supine Exercises SLR Supine Exercise Name SLR /c ER Side bilateral Bridging Supine Exercise Name Bridging /c adductor ball squeeze Sitting Exercises LAQ Sitting Exercise Name LAQ w/VMO facilitation Standing Exercises Weight Shift Standing Exercise Name Weight shift- even distribution in BLE Comments shifts to LLE to offload weight on RLE, antalgic gait Manual Therapy Treatment Joint Mobilizations Patella Joint R patella Direction Inf/sup, medial Grade III Body Position Supine Taping Medial patella pull Body Location R patella Treatment Focus Medial pull of patella Type of Tape Kinesio Tape Manual Techniques MWM Type MWM knee flex/ext Body Location R patella Body Position Supine Comments Sup/Inf/medial PT-OP-T Assessment and Plan Start: 10/26/22 12:01 Freq: Status: Active Protocol: Document 11/04/22 15:05 SW (Rec: 11/04/22 15:26 [id number]) Physical Therapy Assessment Goals Three Impairment Pt exhibits poor patellofemoral tracking bilaterally Spike Machine Heater Goal (LTG) Pt to exhibit bilateral patellofemoral tracking which at the very least improved from lateral pull to neutral pull during leg extension LTG Duration 01/24/23 One Impairment Pt does not have an appropriate home exercise program Short Term Goal (STG) Pt to be independent and compliant with an appropriate HEP STG Duration 11/26/22 Two Impairment Pt performs 6 repetitions during 30 second Sit to Stand Impairment Neck pain rated 3-4/10 with reported L worse than R side. Upper shoulder: L 3/10 Upper back pain rated 4/10 Spike Machine Heater Goal (LTG) Pt to increase score on 30 sec Sit to Stand to at least 10 repetitions in order to demonstrate improvement in functional mobility and get closer to age-related norms. LTG Duration 01/24/23 Assessment Summary Assessment Pt responded well to K tape, able to increase walking 4 laps around the park, up from usually only tolerating 3 laps around. Pt reports her cyst ( R lateral knee) has been very painful and growing, warm and tender to palpation, no redness present, advised a call to her for her concerns. Continued strengthening this session and manual therapy for patellar tracking. Physical Therapy Plan Frequency and Duration Frequency of Treatment 1-2x/week Plan of Care Start Date 10/26/22 Plan of Care End Date 01/24/23 Therapeutic Interventions Therapeutic Interventions Balance Training,Gait Training ,Home Exercise Program,Joint Mobilizations,Manual Therapy, Neuromuscular Re-education, Patient/Caregiver Education, Self-Care/Home Management,Soft Tissue Mobilization,Taping, Therapeutic Activities, Therapeutic Exercises Modalities Cold Pack/Ice Massage,Electric Stimulation,Hot Packs, Ultrasound Next Visit Focus/Plan Next Note Type Treatment Note Next Visit Plan LE strengthing, patellar mobilizations, patellar taping , followup if pt followed up w /cyst concerns
--- NOTE | 2022-11-06 09:45 | PT.OTN ---
Current Diagnoses Primary osteoarthritis, unspecified site (11/06/22) Patellofemoral disorders, right knee (11/06/22) Patellofemoral disorders, left knee (11/06/22) Muscle weakness (generalized) (11/06/22) Unsteadiness on feet (11/06/22) Other abnormalities of gait and mobility (11/06/22) Physical Therapy Treatment Note PT-OP-A Visit Information Start: 10/26/22 12:01 Freq: Status: Active Protocol: Document 11/06/22 09:00 DCW (Rec: 11/06/22 09:45 DCW [id number]) Out-Patient Physical Therapy Visit Information Visit Information Visit Type Treatment Note Visit Start Time 09:00 Visit Stop Time 09:45 Total Visit Minutes 45 Visit Number 4 Number of SOFTWARE CLIENT ARCHITECT Visits 0 Evaluation Information Evaluation Date 10/26/22 PT-OP-B Current Condition Start: 10/26/22 12:01 Freq: Status: Active Protocol: Document 10/26/22 09:30 DCW (Rec: 10/26/22 12:24 DCW [id number]) Current Condition History of Current Condition Onset Date 2016 Current Complaints Knee pain, difficulty walking, fatigue History of Current Condition Pt is a 62 year old female presenting with a long- standing history of bilateral knee pain. Pt underwent a R TKA in 2016, and feels she never truly recovered from it, experiencing pain ever since. Pt notes that also, due to the changed in gait because of her right knee, her left knee has also been bothering her ever since surgery. Pt continues to experience swelling, which is worsened by walking or just spending time up throughout the day. Already spends a lot of time with her feet elevated, icing her knees, and uses compression stockings, but still had increased right LE edema and joint effusion. Pt still tried to walk every day, will either walk to [facility] and then walk two laps, or walk down to [employer] to do her shopping, although she has to take the bus back. Pt uses 4WW for ambulation outside of her home, furniture walks when inside. Prior Treatments and Tests 2016 R TKA Personal Factors Other Personal Factors That May Effect Asthma, cervical DJD, chronic Therapy/Recovery LBP, HTN, Fibromyalgia, OA, DM II/Neuropathy PT-OP-C Subjective Start: 10/26/22 12:01 Freq: Status: Active Protocol: Document 11/06/22 09:00 DCW (Rec: 11/06/22 09:45 DCW [id number]) OP-PT Subjective Patient Comments Patient Comments This morning, they're terrible, but they were much better until the tape came off . PT-OP-E Functional Tests Start: 10/26/22 12:01 Freq: Status: Active Protocol: Document 10/26/22 09:30 DCW (Rec: 10/26/22 12:24 DCW [id number]) Functional Tests 2 Minute Walk Test Distance 320' Device Used 4WW Comments 2.66 ft/sec 30 Second Sit to Stand Test Score 6 repetitions Timed Up and Go (TUG) Score 21.63 /s AD Comments Three-trial average (24.19, 21 .04, 19.63) TUG Impairment Rating 100% Impaired (Score 20) PT-OP-F Manual Assessment Start: 10/26/22 12:37 Freq: Status: Active Protocol: Document 10/26/22 09:30 DCW (Rec: 10/26/22 12:39 DCW [id number]) Manual Assessments Joint Mobility Assessment Joint Mobility Assessment severe lateral deviation of bilateral patella at rest, remain laterally pulled during knee extension, poor VMO activation PT-OP-G Mobility & Gait Start: 10/26/22 12:01 Freq: Status: Active Protocol: Document 10/26/22 09:30 DCW (Rec: 10/26/22 12:24 DCW [id number]) OP Gait Assessment Comments Gait Comments Pt ambulates with moderate trendelenberg gait pattern using 4WW, increased knee valgus in standing. Appropriate neutral positioning of feet, no excessive foot rotation. PT-OP-K Range of Motion Start: 10/26/22 12:01 Freq: Status: Active Protocol: Document 10/26/22 09:30 DCW (Rec: 10/26/22 12:24 DCW [id number]) Knee Goniometric Range of Motion Knee Right Patient Position Supine Flexion Active (degrees) 112 Extension Active (degrees) 8 Left Patient Position Supine Flexion Active (degrees) 124 Extension Active (degrees) 3 PT-OP-L Special Tests Start: 10/26/22 12:37 Freq: Status: Active Protocol: Document 10/26/22 09:30 DCW (Rec: 10/26/22 12:39 DCW [id number]) Special Tests Knee Special Tests Patellar Grind Test Test Results Positive bilaterally Patella Tap Test Results Positive right Dsouza Chondromalacia Test Results Positive bilaterally PT-OP-M Strength Start: 10/26/22 12:01 Freq: Status: Active Protocol: Document 10/26/22 09:30 DCW (Rec: 10/26/22 12:24 DCW [id number]) Hip Strength Hip Manual Muscle Testing Right Flexion (L2) 4 Good Abduction 4- Good- Adduction 4 Good External Rotation 4 Good Internal Rotation 4 Good Left Flexion (L2) 4 Good Abduction 4- Good- Adduction 4 Good External Rotation 4 Good Internal Rotation 4 Good Knee Strength Knee Manual Muscle Testing Right Flexion (S2) 3+ Fair+ Extension (L3) 4- Good- Left Flexion (S2) 4+ Good+ Extension (L3) 4+ Good+ Ankle/Foot Strength Ankle and Foot Manual Muscle Testing Right Dorsiflexion (L4) 4 Good Left Dorsiflexion (L4) 4 Good PT-OP-Q Treatments Start: 10/26/22 12:01 Freq: Status: Active Protocol: Document 11/06/22 09:00 DCW (Rec: 11/06/22 09:45 DCW [id number]) Cardio Equipment Recumbent Elliptical ([employer]) Duration (Minutes) 6 Resistance 5 Seat Position 7 Gym Equipment Shuttle Recovery Unilateral Squats Resistance 37# Shuttle Recovery Platform Stable Bilateral Squats Details Adductor Ball Squeeze Resistance 75# Shuttle Recovery Platform Stable Therapeutic Exercises Supine Exercises SLR Supine Exercise Name SLR /c ER Side bilateral Bridging Supine Exercise Name Bridging /c adductor ball squeeze Sitting Exercises LAQ Sitting Exercise Name LAQ w/VMO facilitation Resistance 4# Manual Therapy Treatment Joint Mobilizations Patella Joint R patella Direction Inf/sup, medial Grade III Body Position Supine Taping Medial patella pull Body Location B patella Treatment Focus Medial pull of patella Type of Tape Kinesio Tape PT-OP-T Assessment and Plan Start: 10/26/22 12:01 Freq: Status: Active Protocol: Document 11/06/22 09:00 DCW (Rec: 11/06/22 09:45 DCW [id number]) Physical Therapy Assessment Impairments Impairments Activity Tolerance,Balance, Functional Activities, Functional Mobility,Gait,Pain, ROM,Soft Tissue Mobility, Strength Goals Three Impairment Pt exhibits poor patellofemoral tracking bilaterally Field Education Director Goal (LTG) Pt to exhibit bilateral patellofemoral tracking which at the very least improved from lateral pull to neutral pull during leg extension LTG Duration 01/24/23 One Impairment Pt does not have an appropriate home exercise program Short Term Goal (STG) Pt to be independent and compliant with an appropriate HEP STG Duration 11/26/22 Two Impairment Pt performs 6 repetitions during 30 second Sit to Stand Impairment Neck pain rated 3-4/10 with reported L worse than R side. Upper shoulder: L 3/10 Upper back pain rated 4/10 Half-Way Goal (LTG) Pt to increase score on 30 sec Sit to Stand to at least 10 repetitions in order to demonstrate improvement in functional mobility and get closer to age-related norms. LTG Duration 01/24/23 Assessment Summary Assessment Continues to respond well to K -tape, compliant so far with HEP, admits she is noticing some increase in mobility with less pain, although still worried about cyst near lateral fibular head. Continue as planned with POC Physical Therapy Plan Frequency and Duration Frequency of Treatment 1-2x/week Plan of Care Start Date 10/26/22 Plan of Care End Date 01/24/23 Therapeutic Interventions Therapeutic Interventions Balance Training,Gait Training ,Home Exercise Program,Joint Mobilizations,Manual Therapy, Neuromuscular Re-education, Patient/Caregiver Education, Self-Care/Home Management,Soft Tissue Mobilization,Taping, Therapeutic Activities, Therapeutic Exercises Modalities Cold Pack/Ice Massage,Electric Stimulation,Hot Packs, Ultrasound Next Visit Focus/Plan Next Note Type Treatment Note Next Visit Plan LE strengthing, patellar mobilizations, patellar taping , followup if pt followed up w /cyst concerns
--- NOTE | 2022-11-11 12:54 | PT.OTN ---
Current Diagnoses Primary osteoarthritis, unspecified site (11/11/22) Patellofemoral disorders, right knee (11/11/22) Patellofemoral disorders, left knee (11/11/22) Muscle weakness (generalized) (11/11/22) Unsteadiness on feet (11/11/22) Other abnormalities of gait and mobility (11/11/22) Physical Therapy Treatment Note PT-OP-A Visit Information Start: 10/26/22 12:01 Freq: Status: Active Protocol: Document 11/11/22 11:50 SW (Rec: 11/11/22 12:54 SW [id number]) Out-Patient Physical Therapy Visit Information Visit Information Visit Type Treatment Note Visit Start Time 11:48 Visit Stop Time 12:33 Total Visit Minutes 45 Visit Number 5 Number of LEAD SOFTWARE DEVELOPER Visits 1 PT-OP-B Current Condition Start: 10/26/22 12:01 Freq: Status: Active Protocol: Document 10/26/22 09:30 DCW (Rec: 10/26/22 12:24 DCW [id number]) Current Condition History of Current Condition Onset Date 2016 Current Complaints Knee pain, difficulty walking, fatigue History of Current Condition Pt is a 62 year old female presenting with a long- standing history of bilateral knee pain. Pt underwent a R TKA in 2016, and feels she never truly recovered from it, experiencing pain ever since. Pt notes that also, due to the changed in gait because of her right knee, her left knee has also been bothering her ever since surgery. Pt continues to experience swelling, which is worsened by walking or just spending time up throughout the day. Already spends a lot of time with her feet elevated, icing her knees, and uses compression stockings, but still had increased right LE edema and joint effusion. Pt still tried to walk every day, will either walk to [facility] and then walk two laps, or walk down to [employer] to do her shopping, although she has to take the bus back. Pt uses 4WW for ambulation outside of her home, furniture walks when inside. Prior Treatments and Tests 2016 R TKA Personal Factors Other Personal Factors That May Effect Asthma, cervical DJD, chronic Therapy/Recovery LBP, HTN, Fibromyalgia, OA, DM II/Neuropathy PT-OP-C Subjective Start: 10/26/22 12:01 Freq: Status: Active Protocol: Document 11/11/22 11:50 SW (Rec: 11/11/22 12:54 SW [id number]) OP-PT Subjective Patient Comments Patient Comments K tape is helping a lot. Pt reports she can walk further distance with tape donned. PT-OP-E Functional Tests Start: 10/26/22 12:01 Freq: Status: Active Protocol: Document 10/26/22 09:30 DCW (Rec: 10/26/22 12:24 DCW [id number]) Functional Tests 2 Minute Walk Test Distance 320' Device Used 4WW Comments 2.66 ft/sec 30 Second Sit to Stand Test Score 6 repetitions Timed Up and Go (TUG) Score 21.63 /s AD Comments Three-trial average (24.19, 21 .04, 19.63) TUG Impairment Rating 100% Impaired (Score 20) PT-OP-F Manual Assessment Start: 10/26/22 12:37 Freq: Status: Active Protocol: Document 10/26/22 09:30 DCW (Rec: 10/26/22 12:39 DCW [id number]) Manual Assessments Joint Mobility Assessment Joint Mobility Assessment severe lateral deviation of bilateral patella at rest, remain laterally pulled during knee extension, poor VMO activation PT-OP-G Mobility & Gait Start: 10/26/22 12:01 Freq: Status: Active Protocol: Document 10/26/22 09:30 DCW (Rec: 10/26/22 12:24 DCW [id number]) OP Gait Assessment Comments Gait Comments Pt ambulates with moderate trendelenberg gait pattern using 4WW, increased knee valgus in standing. Appropriate neutral positioning of feet, no excessive foot rotation. PT-OP-K Range of Motion Start: 10/26/22 12:01 Freq: Status: Active Protocol: Document 10/26/22 09:30 DCW (Rec: 10/26/22 12:24 DCW [id number]) Knee Goniometric Range of Motion Knee Right Patient Position Supine Flexion Active (degrees) 112 Extension Active (degrees) 8 Left Patient Position Supine Flexion Active (degrees) 124 Extension Active (degrees) 3 PT-OP-L Special Tests Start: 10/26/22 12:37 Freq: Status: Active Protocol: Document 10/26/22 09:30 DCW (Rec: 10/26/22 12:39 DCW [id number]) Special Tests Knee Special Tests Patellar Grind Test Test Results Positive bilaterally Patella Tap Test Results Positive right Dsouza Chondromalacia Test Results Positive bilaterally PT-OP-M Strength Start: 10/26/22 12:01 Freq: Status: Active Protocol: Document 10/26/22 09:30 DCW (Rec: 10/26/22 12:24 DCW [id number]) Hip Strength Hip Manual Muscle Testing Right Flexion (L2) 4 Good Abduction 4- Good- Adduction 4 Good External Rotation 4 Good Internal Rotation 4 Good Left Flexion (L2) 4 Good Abduction 4- Good- Adduction 4 Good External Rotation 4 Good Internal Rotation 4 Good Knee Strength Knee Manual Muscle Testing Right Flexion (S2) 3+ Fair+ Extension (L3) 4- Good- Left Flexion (S2) 4+ Good+ Extension (L3) 4+ Good+ Ankle/Foot Strength Ankle and Foot Manual Muscle Testing Right Dorsiflexion (L4) 4 Good Left Dorsiflexion (L4) 4 Good PT-OP-Q Treatments Start: 10/26/22 12:01 Freq: Status: Active Protocol: Document 11/11/22 11:50 SW (Rec: 11/11/22 12:54 SW [id number]) Cardio Equipment Recumbent Elliptical ([employer]) Duration (Minutes) 8 Resistance 5 Seat Position 7 Gym Equipment Shuttle Recovery Unilateral Squats Resistance 37# Shuttle Recovery Platform Stable Bilateral Squats Details Adductor Ball Squeeze Resistance 75# (2 new) Shuttle Recovery Platform Stable Reps/Time RLE VMO bias Therapeutic Exercises Supine Exercises SLR Supine Exercise Name SLR /c ER Side bilateral Equipment Used 2# Comments verbal cues for core stability , tactile cues to inhibit trunk rotation Bridging Supine Exercise Name Bridging /c adductor ball squeeze Sitting Exercises LAQ Sitting Exercise Name LAQ w/VMO facilitation Resistance 4# Manual Therapy Treatment Joint Mobilizations Patella Joint R patella Direction Inf/sup, medial Grade III Body Position Supine Taping Medial patella pull Body Location B patella Treatment Focus Medial pull of patella Type of Tape Kinesio Tape Self-Care/Home Management Treatment Education Patient Education Body Mechanics,Home Exercise Program Other Education Educated patient on anatomy and HEP. PT-OP-T Assessment and Plan Start: 10/26/22 12:01 Freq: Status: Active Protocol: Document 11/11/22 11:50 SW (Rec: 11/11/22 12:54 SW [id number]) Physical Therapy Assessment Goals Three Impairment Pt exhibits poor patellofemoral tracking bilaterally Dry Plasterer Helper Goal (LTG) Pt to exhibit bilateral patellofemoral tracking which at the very least improved from lateral pull to neutral pull during leg extension LTG Duration 01/24/23 One Impairment Pt does not have an appropriate home exercise program Short Term Goal (STG) Pt to be independent and compliant with an appropriate HEP STG Duration 11/26/22 Two Impairment Pt performs 6 repetitions during 30 second Sit to Stand Impairment Neck pain rated 3-4/10 with reported L worse than R side. Upper shoulder: L 3/10 Upper back pain rated 4/10 Mcc Goal (LTG) Pt to increase score on 30 sec Sit to Stand to at least 10 repetitions in order to demonstrate improvement in functional mobility and get closer to age-related norms. LTG Duration 01/24/23 Assessment Summary Assessment Progressed weight with BLE strengthening squats. Patient reports increased walking tolerance with K tape donned. Reviewed HEP for form, and weight placement. Plan to progress LE strengthening exercises in a functional way. Physical Therapy Plan Frequency and Duration Frequency of Treatment 1-2x/week Plan of Care Start Date 10/26/22 Plan of Care End Date 01/24/23 Therapeutic Interventions Therapeutic Interventions Balance Training,Gait Training ,Home Exercise Program,Joint Mobilizations,Manual Therapy, Neuromuscular Re-education, Patient/Caregiver Education, Self-Care/Home Management,Soft Tissue Mobilization,Taping, Therapeutic Activities, Therapeutic Exercises Modalities Cold Pack/Ice Massage,Electric Stimulation,Hot Packs, Ultrasound Next Visit Focus/Plan Next Note Type Treatment Note Next Visit Plan LE strengthing, patellar mobilizations, patellar taping
--- NOTE | 2022-11-18 13:56 | PT.OTN ---
Current Diagnoses Primary osteoarthritis, unspecified site (11/18/22) Patellofemoral disorders, right knee (11/18/22) Patellofemoral disorders, left knee (11/18/22) Muscle weakness (generalized) (11/18/22) Unsteadiness on feet (11/18/22) Other abnormalities of gait and mobility (11/18/22) Physical Therapy Treatment Note PT-OP-A Visit Information Start: 10/26/22 12:01 Freq: Status: Active Protocol: Document 11/18/22 10:06 SW (Rec: 11/18/22 11:39 SW [id number]) Out-Patient Physical Therapy Visit Information Visit Information Visit Type Treatment Note Visit Start Time 10:01 Visit Stop Time 10:55 Total Visit Minutes 54 Visit Number 6 Number of SUPERVISOR SHUTTLE FITTING Visits 2 PT-OP-B Current Condition Start: 10/26/22 12:01 Freq: Status: Active Protocol: Document 10/26/22 09:30 DCW (Rec: 10/26/22 12:24 DCW [id number]) Current Condition History of Current Condition Onset Date 2016 Current Complaints Knee pain, difficulty walking, fatigue History of Current Condition Pt is a 62 year old female presenting with a long- standing history of bilateral knee pain. Pt underwent a R TKA in 2016, and feels she never truly recovered from it, experiencing pain ever since. Pt notes that also, due to the changed in gait because of her right knee, her left knee has also been bothering her ever since surgery. Pt continues to experience swelling, which is worsened by walking or just spending time up throughout the day. Already spends a lot of time with her feet elevated, icing her knees, and uses compression stockings, but still had increased right LE edema and joint effusion. Pt still tried to walk every day, will either walk to [facility] and then walk two laps, or walk down to [employer] to do her shopping, although she has to take the bus back. Pt uses 4WW for ambulation outside of her home, furniture walks when inside. Prior Treatments and Tests 2016 R TKA Personal Factors Other Personal Factors That May Effect Asthma, cervical DJD, chronic Therapy/Recovery LBP, HTN, Fibromyalgia, OA, DM II/Neuropathy PT-OP-C Subjective Start: 10/26/22 12:01 Freq: Status: Active Protocol: Document 11/18/22 10:06 SW (Rec: 11/18/22 11:39 SW [id number]) OP-PT Subjective Patient Comments Patient Comments Weather has been hard on pain. Walked at park on wednesday and since then pain has been a 10/10, previously improved at a 5/10. PT-OP-E Functional Tests Start: 10/26/22 12:01 Freq: Status: Active Protocol: Document 10/26/22 09:30 DCW (Rec: 10/26/22 12:24 DCW [id number]) Functional Tests 2 Minute Walk Test Distance 320' Device Used 4WW Comments 2.66 ft/sec 30 Second Sit to Stand Test Score 6 repetitions Timed Up and Go (TUG) Score 21.63 /s AD Comments Three-trial average (24.19, 21 .04, 19.63) TUG Impairment Rating 100% Impaired (Score 20) PT-OP-F Manual Assessment Start: 10/26/22 12:37 Freq: Status: Active Protocol: Document 10/26/22 09:30 DCW (Rec: 10/26/22 12:39 DCW [id number]) Manual Assessments Joint Mobility Assessment Joint Mobility Assessment severe lateral deviation of bilateral patella at rest, remain laterally pulled during knee extension, poor VMO activation PT-OP-G Mobility & Gait Start: 10/26/22 12:01 Freq: Status: Active Protocol: Document 10/26/22 09:30 DCW (Rec: 10/26/22 12:24 DCW [id number]) OP Gait Assessment Comments Gait Comments Pt ambulates with moderate trendelenberg gait pattern using 4WW, increased knee valgus in standing. Appropriate neutral positioning of feet, no excessive foot rotation. PT-OP-K Range of Motion Start: 10/26/22 12:01 Freq: Status: Active Protocol: Document 10/26/22 09:30 DCW (Rec: 10/26/22 12:24 DCW [id number]) Knee Goniometric Range of Motion Knee Right Patient Position Supine Flexion Active (degrees) 112 Extension Active (degrees) 8 Left Patient Position Supine Flexion Active (degrees) 124 Extension Active (degrees) 3 PT-OP-L Special Tests Start: 10/26/22 12:37 Freq: Status: Active Protocol: Document 10/26/22 09:30 DCW (Rec: 10/26/22 12:39 DCW [id number]) Special Tests Knee Special Tests Patellar Grind Test Test Results Positive bilaterally Patella Tap Test Results Positive right Dsouza Chondromalacia Test Results Positive bilaterally PT-OP-M Strength Start: 10/26/22 12:01 Freq: Status: Active Protocol: Document 10/26/22 09:30 DCW (Rec: 10/26/22 12:24 DCW [id number]) Hip Strength Hip Manual Muscle Testing Right Flexion (L2) 4 Good Abduction 4- Good- Adduction 4 Good External Rotation 4 Good Internal Rotation 4 Good Left Flexion (L2) 4 Good Abduction 4- Good- Adduction 4 Good External Rotation 4 Good Internal Rotation 4 Good Knee Strength Knee Manual Muscle Testing Right Flexion (S2) 3+ Fair+ Extension (L3) 4- Good- Left Flexion (S2) 4+ Good+ Extension (L3) 4+ Good+ Ankle/Foot Strength Ankle and Foot Manual Muscle Testing Right Dorsiflexion (L4) 4 Good Left Dorsiflexion (L4) 4 Good PT-OP-Q Treatments Start: 10/26/22 12:01 Freq: Status: Active Protocol: Document 11/18/22 10:06 SW (Rec: 11/18/22 11:39 SW [id number]) Cardio Equipment Recumbent Elliptical (Biodex) Duration (Minutes) 10 Resistance 5 Seat Position 7 Gym Equipment Shuttle Recovery Unilateral Squats Resistance 37# Shuttle Recovery Platform Stable Bilateral Squats Details Adductor Ball Squeeze Resistance 75# (2 new) Shuttle Recovery Platform Stable Reps/Time RLE VMO bias Therapeutic Exercises Sitting Exercises LAQ Sitting Exercise Name LAQ w/VMO facilitation Resistance 5# Standing Exercises STS Standing Exercise Name STS> STS transfer w/LLE slightly behind for transfer safety Equipment Used Green ball between knees Reps/Minutes x5, x2 Comments Cues required for knee alignment/hip extension upon standing Manual Therapy Treatment Soft Tissue Mobilization R knee Body Location R Knee Mobilization Type Myofascial Release,Strain/ Counterstrain Intensity/Depth Superficial Body Position Sitting Comments Gentle STM to quad/sub patellar Joint Mobilizations Patella Joint R patella Direction Inf/sup, medial Grade II Body Position Supine Taping Medial patella pull Body Location B patella Treatment Focus Medial pull of patella Type of Tape Kinesio Tape PT-OP-R Modalities Start: 11/18/22 11:41 Freq: Status: Active Protocol: Document 11/18/22 10:06 (Rec: 11/18/22 11:44 [id number]) Hot Pack/Cold Pack Treatment Hot Pack Patient Position Supine Treatment Duration (minutes) 15 Comments LE on bolster, 7 layers, cheng within reach PT-OP-T Assessment and Plan Start: 10/26/22 12:01 Freq: Status: Active Protocol: Document 11/18/22 10:06 (Rec: 11/18/22 11:39 [id number]) Physical Therapy Assessment Goals Three Impairment Pt exhibits poor patellofemoral tracking bilaterally Alf Goal (LTG) Pt to exhibit bilateral patellofemoral tracking which at the very least improved from lateral pull to neutral pull during leg extension LTG Duration 01/24/23 One Impairment Pt does not have an appropriate home exercise program Short Term Goal (STG) Pt to be independent and compliant with an appropriate HEP STG Duration 11/26/22 Two Impairment Pt performs 6 repetitions during 30 second Sit to Stand Impairment Neck pain rated 3-4/10 with reported L worse than R side. Upper shoulder: L 3/10 Upper back pain rated 4/10 Alf Goal (LTG) Pt to increase score on 30 sec Sit to Stand to at least 10 repetitions in order to demonstrate improvement in functional mobility and get closer to age-related norms. LTG Duration 01/24/23 Assessment Summary Assessment Pt came into session w/ 10/10 R knee pn, since wednesday, Previously she was down to a 5 /10 improved pain level in R Knee. Pt believes it may be the change in weather. Visited manual therapy and modalities to end session today for decreased pain, good response, decreased pain. Instructed patient on STS modification to safely ascend from toileting with increased R knee pain, good carryover with more ease in sitting to standing transition. Physical Therapy Plan Frequency and Duration Frequency of Treatment 1-2x/week Plan of Care Start Date 10/26/22 Plan of Care End Date 01/24/23 Therapeutic Interventions Therapeutic Interventions Balance Training,Gait Training ,Home Exercise Program,Joint Mobilizations,Manual Therapy, Neuromuscular Re-education, Patient/Caregiver Education, Self-Care/Home Management,Soft Tissue Mobilization,Taping, Therapeutic Activities, Therapeutic Exercises Modalities Cold Pack/Ice Massage,Electric Stimulation,Hot Packs, Ultrasound Next Visit Focus/Plan Next Note Type Treatment Note Next Visit Plan LE strengthing, patellar mobilizations, patellar taping
--- NOTE | 2022-11-25 15:35 | PT.OTN ---
Current Diagnoses Primary osteoarthritis, unspecified site (11/25/22) Patellofemoral disorders, right knee (11/25/22) Patellofemoral disorders, left knee (11/25/22) Muscle weakness (generalized) (11/25/22) Unsteadiness on feet (11/25/22) Other abnormalities of gait and mobility (11/25/22) Physical Therapy Treatment Note PT-OP-A Visit Information Start: 10/26/22 12:01 Freq: Status: Active Protocol: Document 11/25/22 14:45 DCW (Rec: 11/25/22 15:35 DCW [id number]) Out-Patient Physical Therapy Visit Information Visit Information Visit Type Treatment Note Visit Start Time 14:45 Visit Stop Time 15:30 Total Visit Minutes 45 Visit Number 7 Number of GUEST SERVICE AIDE Visits 0 Evaluation Information Evaluation Date 10/26/22 PT-OP-B Current Condition Start: 10/26/22 12:01 Freq: Status: Active Protocol: Document 10/26/22 09:30 DCW (Rec: 10/26/22 12:24 DCW [id number]) Current Condition History of Current Condition Onset Date 2016 Current Complaints Knee pain, difficulty walking, fatigue History of Current Condition Pt is a 62 year old female presenting with a long- standing history of bilateral knee pain. Pt underwent a R TKA in 2016, and feels she never truly recovered from it, experiencing pain ever since. Pt notes that also, due to the changed in gait because of her right knee, her left knee has also been bothering her ever since surgery. Pt continues to experience swelling, which is worsened by walking or just spending time up throughout the day. Already spends a lot of time with her feet elevated, icing her knees, and uses compression stockings, but still had increased right LE edema and joint effusion. Pt still tried to walk every day, will either walk to [facility] and then walk two laps, or walk down to [employer] to do her shopping, although she has to take the bus back. Pt uses 4WW for ambulation outside of her home, furniture walks when inside. Prior Treatments and Tests 2016 R TKA Personal Factors Other Personal Factors That May Effect Asthma, cervical DJD, chronic Therapy/Recovery LBP, HTN, Fibromyalgia, OA, DM II/Neuropathy PT-OP-C Subjective Start: 10/26/22 12:01 Freq: Status: Active Protocol: Document 11/25/22 14:45 DCW (Rec: 11/25/22 15:35 DCW [id number]) OP-PT Subjective Patient Comments Patient Comments Pt reports she woke up yesterday with yet another cyst on her right lower leg, more distal than the other ones, but signficantly larger than the others. Was seen in urgent care, had an x-ray, and has a diagnostic US scheduled PT-OP-E Functional Tests Start: 10/26/22 12:01 Freq: Status: Active Protocol: Document 10/26/22 09:30 DCW (Rec: 10/26/22 12:24 DCW [id number]) Functional Tests 2 Minute Walk Test Distance 320' Device Used 4WW Comments 2.66 ft/sec 30 Second Sit to Stand Test Score 6 repetitions Timed Up and Go (TUG) Score 21.63 /s AD Comments Three-trial average (24.19, 21 .04, 19.63) TUG Impairment Rating 100% Impaired (Score 20) PT-OP-F Manual Assessment Start: 10/26/22 12:37 Freq: Status: Active Protocol: Document 10/26/22 09:30 DCW (Rec: 10/26/22 12:39 DCW [id number]) Manual Assessments Joint Mobility Assessment Joint Mobility Assessment severe lateral deviation of bilateral patella at rest, remain laterally pulled during knee extension, poor VMO activation PT-OP-G Mobility & Gait Start: 10/26/22 12:01 Freq: Status: Active Protocol: Document 10/26/22 09:30 DCW (Rec: 10/26/22 12:24 DCW [id number]) OP Gait Assessment Comments Gait Comments Pt ambulates with moderate trendelenberg gait pattern using 4WW, increased knee valgus in standing. Appropriate neutral positioning of feet, no excessive foot rotation. PT-OP-K Range of Motion Start: 10/26/22 12:01 Freq: Status: Active Protocol: Document 10/26/22 09:30 DCW (Rec: 10/26/22 12:24 DCW [id number]) Knee Goniometric Range of Motion Knee Right Patient Position Supine Flexion Active (degrees) 112 Extension Active (degrees) 8 Left Patient Position Supine Flexion Active (degrees) 124 Extension Active (degrees) 3 PT-OP-L Special Tests Start: 10/26/22 12:37 Freq: Status: Active Protocol: Document 10/26/22 09:30 DCW (Rec: 10/26/22 12:39 DCW [id number]) Special Tests Knee Special Tests Patellar Grind Test Test Results Positive bilaterally Patella Tap Test Results Positive right Dsouza Chondromalacia Test Results Positive bilaterally PT-OP-M Strength Start: 10/26/22 12:01 Freq: Status: Active Protocol: Document 10/26/22 09:30 DCW (Rec: 10/26/22 12:24 DCW [id number]) Hip Strength Hip Manual Muscle Testing Right Flexion (L2) 4 Good Abduction 4- Good- Adduction 4 Good External Rotation 4 Good Internal Rotation 4 Good Left Flexion (L2) 4 Good Abduction 4- Good- Adduction 4 Good External Rotation 4 Good Internal Rotation 4 Good Knee Strength Knee Manual Muscle Testing Right Flexion (S2) 3+ Fair+ Extension (L3) 4- Good- Left Flexion (S2) 4+ Good+ Extension (L3) 4+ Good+ Ankle/Foot Strength Ankle and Foot Manual Muscle Testing Right Dorsiflexion (L4) 4 Good Left Dorsiflexion (L4) 4 Good PT-OP-Q Treatments Start: 10/26/22 12:01 Freq: Status: Active Protocol: Document 11/25/22 14:45 DCW (Rec: 11/25/22 15:35 DCW [id number]) Cardio Equipment Recumbent Elliptical (Biodex) Duration (Minutes) 8 Resistance 5 Seat Position 7 Gym Equipment Shuttle Recovery Unilateral Squats Resistance 37# Shuttle Recovery Platform Stable Bilateral Squats Details Adductor Ball Squeeze Resistance 75# (2 new) Shuttle Recovery Platform Stable Reps/Time RLE VMO bias Manual Therapy Treatment Soft Tissue Mobilization R knee Body Location R Knee Mobilization Type Myofascial Release,Strain/ Counterstrain Intensity/Depth Superficial Body Position Sitting Comments Gentle STM to quad/sub patellar Joint Mobilizations Patella Joint R patella Direction Inf/sup, medial Grade II Body Position Supine Taping Medial patella pull Body Location B patella Treatment Focus Medial pull of patella Type of Tape Kinesio Tape PT-OP-R Modalities Start: 11/18/22 11:41 Freq: Status: Active Protocol: Document 11/18/22 10:06 SW (Rec: 11/18/22 11:44 SW [id number]) Hot Pack/Cold Pack Treatment Hot Pack Patient Position Supine Treatment Duration (minutes) 15 Comments LE on bolster, 7 layers, cheng within reach PT-OP-T Assessment and Plan Start: 10/26/22 12:01 Freq: Status: Active Protocol: Document 11/25/22 14:45 DCW (Rec: 11/25/22 15:35 DCW [id number]) Physical Therapy Assessment Impairments Impairments Activity Tolerance,Balance, Functional Activities, Functional Mobility,Gait,Pain, ROM,Soft Tissue Mobility, Strength Goals Three Impairment Pt exhibits poor patellofemoral tracking bilaterally Chcf Goal (LTG) Pt to exhibit bilateral patellofemoral tracking which at the very least improved from lateral pull to neutral pull during leg extension LTG Duration 01/24/23 One Impairment Pt does not have an appropriate home exercise program Short Term Goal (STG) Pt to be independent and compliant with an appropriate HEP STG Duration 11/26/22 Two Impairment Pt performs 6 repetitions during 30 second Sit to Stand Impairment Neck pain rated 3-4/10 with reported L worse than R side. Upper shoulder: L 3/10 Upper back pain rated 4/10 Continuous Wave Operator Goal (LTG) Pt to increase score on 30 sec Sit to Stand to at least 10 repetitions in order to demonstrate improvement in functional mobility and get closer to age-related norms. LTG Duration 01/24/23 Assessment Summary Assessment Pt noted significant improvement since last week, feeling much better up walking . Is worried about another cyst appearing, but is feeling more optimistic today with an upcoming diagnostic US. Tolerated treatment well today , did not note any increased pain with TherEx today/ Physical Therapy Plan Frequency and Duration Frequency of Treatment 1-2x/week Plan of Care Start Date 10/26/22 Plan of Care End Date 01/24/23 Therapeutic Interventions Therapeutic Interventions Balance Training,Gait Training ,Home Exercise Program,Joint Mobilizations,Manual Therapy, Neuromuscular Re-education, Patient/Caregiver Education, Self-Care/Home Management,Soft Tissue Mobilization,Taping, Therapeutic Activities, Therapeutic Exercises Modalities Cold Pack/Ice Massage,Electric Stimulation,Hot Packs, Ultrasound Next Visit Focus/Plan Next Note Type Treatment Note Next Visit Plan LE strengthing, patellar mobilizations, patellar taping
--- NOTE | 2022-11-27 13:01 | PT.OTN ---
Current Diagnoses Primary osteoarthritis, unspecified site (11/27/22) Patellofemoral disorders, right knee (11/27/22) Patellofemoral disorders, left knee (11/27/22) Muscle weakness (generalized) (11/27/22) Unsteadiness on feet (11/27/22) Other abnormalities of gait and mobility (11/27/22) Physical Therapy Treatment Note PT-OP-A Visit Information Start: 10/26/22 12:01 Freq: Status: Active Protocol: Document 11/27/22 12:15 DCW (Rec: 11/27/22 13:01 DCW [id number]) Out-Patient Physical Therapy Visit Information Visit Information Visit Type Treatment Note Visit Start Time 12:15 Visit Stop Time 13:00 Total Visit Minutes 45 Visit Number 8 Number of ELEVATOR CONSTRUCTOR HYDRAULIC Visits 0 Evaluation Information Evaluation Date 10/26/22 PT-OP-B Current Condition Start: 10/26/22 12:01 Freq: Status: Active Protocol: Document 10/26/22 09:30 DCW (Rec: 10/26/22 12:24 DCW [id number]) Current Condition History of Current Condition Onset Date 2016 Current Complaints Knee pain, difficulty walking, fatigue History of Current Condition Pt is a 62 year old female presenting with a long- standing history of bilateral knee pain. Pt underwent a R TKA in 2016, and feels she never truly recovered from it, experiencing pain ever since. Pt notes that also, due to the changed in gait because of her right knee, her left knee has also been bothering her ever since surgery. Pt continues to experience swelling, which is worsened by walking or just spending time up throughout the day. Already spends a lot of time with her feet elevated, icing her knees, and uses compression stockings, but still had increased right LE edema and joint effusion. Pt still tried to walk every day, will either walk to [facility] and then walk two laps, or walk down to [employer] to do her shopping, although she has to take the bus back. Pt uses 4WW for ambulation outside of her home, furniture walks when inside. Prior Treatments and Tests 2016 R TKA Personal Factors Other Personal Factors That May Effect Asthma, cervical DJD, chronic Therapy/Recovery LBP, HTN, Fibromyalgia, OA, DM II/Neuropathy PT-OP-C Subjective Start: 10/26/22 12:01 Freq: Status: Active Protocol: Document 11/27/22 12:15 DCW (Rec: 11/27/22 13:01 DCW [id number]) OP-PT Subjective Patient Comments Patient Comments Pt saw her PCP this morning, reports that her pain in her right knee is bursitis, not a cyst, and the new lump in her right lower leg is a hematoma. PT-OP-E Functional Tests Start: 10/26/22 12:01 Freq: Status: Active Protocol: Document 10/26/22 09:30 DCW (Rec: 10/26/22 12:24 DCW [id number]) Functional Tests 2 Minute Walk Test Distance 320' Device Used 4WW Comments 2.66 ft/sec 30 Second Sit to Stand Test Score 6 repetitions Timed Up and Go (TUG) Score 21.63 /s AD Comments Three-trial average (24.19, 21 .04, 19.63) TUG Impairment Rating 100% Impaired (Score 20) PT-OP-F Manual Assessment Start: 10/26/22 12:37 Freq: Status: Active Protocol: Document 10/26/22 09:30 DCW (Rec: 10/26/22 12:39 DCW [id number]) Manual Assessments Joint Mobility Assessment Joint Mobility Assessment severe lateral deviation of bilateral patella at rest, remain laterally pulled during knee extension, poor VMO activation PT-OP-G Mobility & Gait Start: 10/26/22 12:01 Freq: Status: Active Protocol: Document 10/26/22 09:30 DCW (Rec: 10/26/22 12:24 DCW [id number]) OP Gait Assessment Comments Gait Comments Pt ambulates with moderate trendelenberg gait pattern using 4WW, increased knee valgus in standing. Appropriate neutral positioning of feet, no excessive foot rotation. PT-OP-K Range of Motion Start: 10/26/22 12:01 Freq: Status: Active Protocol: Document 10/26/22 09:30 DCW (Rec: 10/26/22 12:24 DCW [id number]) Knee Goniometric Range of Motion Knee Right Patient Position Supine Flexion Active (degrees) 112 Extension Active (degrees) 8 Left Patient Position Supine Flexion Active (degrees) 124 Extension Active (degrees) 3 PT-OP-L Special Tests Start: 10/26/22 12:37 Freq: Status: Active Protocol: Document 10/26/22 09:30 DCW (Rec: 10/26/22 12:39 DCW [id number]) Special Tests Knee Special Tests Patellar Grind Test Test Results Positive bilaterally Patella Tap Test Results Positive right Dsouza Chondromalacia Test Results Positive bilaterally PT-OP-M Strength Start: 10/26/22 12:01 Freq: Status: Active Protocol: Document 10/26/22 09:30 DCW (Rec: 10/26/22 12:24 DCW [id number]) Hip Strength Hip Manual Muscle Testing Right Flexion (L2) 4 Good Abduction 4- Good- Adduction 4 Good External Rotation 4 Good Internal Rotation 4 Good Left Flexion (L2) 4 Good Abduction 4- Good- Adduction 4 Good External Rotation 4 Good Internal Rotation 4 Good Knee Strength Knee Manual Muscle Testing Right Flexion (S2) 3+ Fair+ Extension (L3) 4- Good- Left Flexion (S2) 4+ Good+ Extension (L3) 4+ Good+ Ankle/Foot Strength Ankle and Foot Manual Muscle Testing Right Dorsiflexion (L4) 4 Good Left Dorsiflexion (L4) 4 Good PT-OP-Q Treatments Start: 10/26/22 12:01 Freq: Status: Active Protocol: Document 11/27/22 12:15 DCW (Rec: 11/27/22 13:01 DCW [id number]) Cardio Equipment Recumbent Elliptical (BiodBtiques) Duration (Minutes) 8 Resistance 5 Seat Position 7 Gym Equipment Shuttle Recovery Unilateral Squats Resistance 37# Shuttle Recovery Platform Stable Bilateral Squats Details Adductor Ball Squeeze Resistance 75# (2 new) Shuttle Recovery Platform Stable Reps/Time RLE VMO bias Therapeutic Exercises Sitting Exercises Hamstring Curl Sitting Exercise Name HS Curls Side bilateral Resistance [place] LAQ Sitting Exercise Name LAQ w/VMO facilitation Side bilateral Resistance 5# Manual Therapy Treatment Soft Tissue Mobilization R knee Body Location R Knee Mobilization Type Myofascial Release,Strain/ Counterstrain Intensity/Depth Superficial Body Position Sitting Comments Gentle STM to quad/sub patellar Joint Mobilizations Patella Joint R patella Direction Inf/sup, medial Grade II Body Position Supine PT-OP-R Modalities Start: 11/18/22 11:41 Freq: Status: Active Protocol: Document 11/18/22 10:06 SW (Rec: 11/18/22 11:44 SW [id number]) Hot Pack/Cold Pack Treatment Hot Pack Patient Position Supine Treatment Duration (minutes) 15 Comments LE on bolster, 7 layers, cheng within reach PT-OP-T Assessment and Plan Start: 10/26/22 12:01 Freq: Status: Active Protocol: Document 11/27/22 12:15 DCW (Rec: 11/27/22 13:01 DCW [id number]) Physical Therapy Assessment Impairments Impairments Activity Tolerance,Balance, Functional Activities, Functional Mobility,Gait,Pain, ROM,Soft Tissue Mobility, Strength Goals Three Impairment Pt exhibits poor patellofemoral tracking bilaterally [place] Goal (LTG) Pt to exhibit bilateral patellofemoral tracking which at the very least improved from lateral pull to neutral pull during leg extension LTG Duration 01/24/23 One Impairment Pt does not have an appropriate home exercise program Short Term Goal (STG) Pt to be independent and compliant with an appropriate HEP STG Duration 11/26/22 Two Impairment Pt performs 6 repetitions during 30 second Sit to Stand Impairment Neck pain rated 3-4/10 with reported L worse than R side. Upper shoulder: L 3/10 Upper back pain rated 4/10 Bi Data Architect Goal (LTG) Pt to increase score on 30 sec Sit to Stand to at least 10 repetitions in order to demonstrate improvement in functional mobility and get closer to age-related norms. LTG Duration 01/24/23 Assessment Summary Assessment Pt actually quite relieved that, per Dr Garnica, she does not appear to have cysts that she was reporting earlier. Does feel like her leg strength is improving, right knee appears to be much stable with gentle joint mobilizations. Physical Therapy Plan Frequency and Duration Frequency of Treatment 1-2x/week Plan of Care Start Date 10/26/22 Plan of Care End Date 01/24/23 Therapeutic Interventions Therapeutic Interventions Balance Training,Gait Training ,Home Exercise Program,Joint Mobilizations,Manual Therapy, Neuromuscular Re-education, Patient/Caregiver Education, Self-Care/Home Management,Soft Tissue Mobilization,Taping, Therapeutic Activities, Therapeutic Exercises Modalities Cold Pack/Ice Massage,Electric Stimulation,Hot Packs, Ultrasound Next Visit Focus/Plan Next Note Type Treatment Note Next Visit Plan LE strengthing, patellar mobilizations, patellar taping
--- NOTE | 2022-11-30 10:16 | PT.OTN ---
Current Diagnoses Primary osteoarthritis, unspecified site (11/30/22) Patellofemoral disorders, right knee (11/30/22) Patellofemoral disorders, left knee (11/30/22) Muscle weakness (generalized) (11/30/22) Unsteadiness on feet (11/30/22) Other abnormalities of gait and mobility (11/30/22) Physical Therapy Treatment Note PT-OP-A Visit Information Start: 10/26/22 12:01 Freq: Status: Active Protocol: Document 11/30/22 09:30 DCW (Rec: 11/30/22 10:16 DCW [id number]) Out-Patient Physical Therapy Visit Information Visit Information Visit Type Treatment Note Visit Start Time 09:30 Visit Stop Time 10:15 Total Visit Minutes 45 Visit Number 9 Number of CHILD CARE ASSOCIATE Visits 0 Evaluation Information Evaluation Date 10/26/22 PT-OP-B Current Condition Start: 10/26/22 12:01 Freq: Status: Active Protocol: Document 10/26/22 09:30 DCW (Rec: 10/26/22 12:24 DCW [id number]) Current Condition History of Current Condition Onset Date 2016 Current Complaints Knee pain, difficulty walking, fatigue History of Current Condition Pt is a 62 year old female presenting with a long- standing history of bilateral knee pain. Pt underwent a R TKA in 2016, and feels she never truly recovered from it, experiencing pain ever since. Pt notes that also, due to the changed in gait because of her right knee, her left knee has also been bothering her ever since surgery. Pt continues to experience swelling, which is worsened by walking or just spending time up throughout the day. Already spends a lot of time with her feet elevated, icing her knees, and uses compression stockings, but still had increased right LE edema and joint effusion. Pt still tried to walk every day, will either walk to [facility] and then walk two laps, or walk down to [employer] to do her shopping, although she has to take the bus back. Pt uses 4WW for ambulation outside of her home, furniture walks when inside. Prior Treatments and Tests 2016 R TKA Personal Factors Other Personal Factors That May Effect Asthma, cervical DJD, chronic Therapy/Recovery LBP, HTN, Fibromyalgia, OA, DM II/Neuropathy PT-OP-C Subjective Start: 10/26/22 12:01 Freq: Status: Active Protocol: Document 11/30/22 09:30 DCW (Rec: 11/30/22 10:16 DCW [id number]) OP-PT Subjective Patient Comments Patient Comments Pt reports she was miserable this weekend, her knees were bothering her all weekend, unsure of the cause, but thinks it might have something to do with the change in weather. PT-OP-E Functional Tests Start: 10/26/22 12:01 Freq: Status: Active Protocol: Document 10/26/22 09:30 DCW (Rec: 10/26/22 12:24 DCW [id number]) Functional Tests 2 Minute Walk Test Distance 320' Device Used 4WW Comments 2.66 ft/sec 30 Second Sit to Stand Test Score 6 repetitions Timed Up and Go (TUG) Score 21.63 /s AD Comments Three-trial average (24.19, 21 .04, 19.63) TUG Impairment Rating 100% Impaired (Score 20) PT-OP-F Manual Assessment Start: 10/26/22 12:37 Freq: Status: Active Protocol: Document 10/26/22 09:30 DCW (Rec: 10/26/22 12:39 DCW [id number]) Manual Assessments Joint Mobility Assessment Joint Mobility Assessment severe lateral deviation of bilateral patella at rest, remain laterally pulled during knee extension, poor VMO activation PT-OP-G Mobility & Gait Start: 10/26/22 12:01 Freq: Status: Active Protocol: Document 10/26/22 09:30 DCW (Rec: 10/26/22 12:24 DCW [id number]) OP Gait Assessment Comments Gait Comments Pt ambulates with moderate trendelenberg gait pattern using 4WW, increased knee valgus in standing. Appropriate neutral positioning of feet, no excessive foot rotation. PT-OP-K Range of Motion Start: 10/26/22 12:01 Freq: Status: Active Protocol: Document 10/26/22 09:30 DCW (Rec: 10/26/22 12:24 DCW [id number]) Knee Goniometric Range of Motion Knee Right Patient Position Supine Flexion Active (degrees) 112 Extension Active (degrees) 8 Left Patient Position Supine Flexion Active (degrees) 124 Extension Active (degrees) 3 PT-OP-L Special Tests Start: 10/26/22 12:37 Freq: Status: Active Protocol: Document 10/26/22 09:30 DCW (Rec: 10/26/22 12:39 DCW [id number]) Special Tests Knee Special Tests Patellar Grind Test Test Results Positive bilaterally Patella Tap Test Results Positive right Dsouza Chondromalacia Test Results Positive bilaterally PT-OP-M Strength Start: 10/26/22 12:01 Freq: Status: Active Protocol: Document 10/26/22 09:30 DCW (Rec: 10/26/22 12:24 DCW [id number]) Hip Strength Hip Manual Muscle Testing Right Flexion (L2) 4 Good Abduction 4- Good- Adduction 4 Good External Rotation 4 Good Internal Rotation 4 Good Left Flexion (L2) 4 Good Abduction 4- Good- Adduction 4 Good External Rotation 4 Good Internal Rotation 4 Good Knee Strength Knee Manual Muscle Testing Right Flexion (S2) 3+ Fair+ Extension (L3) 4- Good- Left Flexion (S2) 4+ Good+ Extension (L3) 4+ Good+ Ankle/Foot Strength Ankle and Foot Manual Muscle Testing Right Dorsiflexion (L4) 4 Good Left Dorsiflexion (L4) 4 Good PT-OP-Q Treatments Start: 10/26/22 12:01 Freq: Status: Active Protocol: Document 11/30/22 09:30 DCW (Rec: 11/30/22 10:16 DCW [id number]) Cardio Equipment Recumbent Elliptical (Biodex) Duration (Minutes) 8 Resistance 5 Seat Position 8 Gym Equipment Shuttle Recovery Unilateral Squats Resistance 37# Shuttle Recovery Platform Stable Bilateral Squats Details Adductor Ball Squeeze Resistance 75# (2 new) Shuttle Recovery Platform Stable Reps/Time RLE VMO bias Therapeutic Exercises Sitting Exercises Hamstring Curl Sitting Exercise Name HS Curls Side bilateral Resistance [place] LAQ Sitting Exercise Name LAQ w/VMO facilitation Side bilateral Resistance 5# Manual Therapy Treatment Soft Tissue Mobilization R knee Body Location R Knee Mobilization Type Myofascial Release,Strain/ Counterstrain Intensity/Depth Superficial Body Position Sitting Comments Gentle STM to quad/sub patellar Joint Mobilizations Patella Joint B patella Direction Inf/sup, medial Grade II Body Position Supine Taping Medial patella pull Body Location B patella Treatment Focus Medial pull of patella Type of Tape Kinesio Tape PT-OP-R Modalities Start: 11/18/22 11:41 Freq: Status: Active Protocol: Document 11/18/22 10:06 SW (Rec: 11/18/22 11:44 SW [id number]) Hot Pack/Cold Pack Treatment Hot Pack Patient Position Supine Treatment Duration (minutes) 15 Comments LE on bolster, 7 layers, cheng within reach PT-OP-T Assessment and Plan Start: 10/26/22 12:01 Freq: Status: Active Protocol: Document 11/30/22 09:30 DCW (Rec: 11/30/22 10:16 DCW [id number]) Physical Therapy Assessment Impairments Impairments Activity Tolerance,Balance, Functional Activities, Functional Mobility,Gait,Pain, ROM,Soft Tissue Mobility, Strength Goals Three Impairment Pt exhibits poor patellofemoral tracking bilaterally Retirement Goal (LTG) Pt to exhibit bilateral patellofemoral tracking which at the very least improved from lateral pull to neutral pull during leg extension LTG Duration 01/24/23 One Impairment Pt does not have an appropriate home exercise program Short Term Goal (STG) Pt to be independent and compliant with an appropriate HEP STG Duration 11/26/22 Two Impairment Pt performs 6 repetitions during 30 second Sit to Stand Impairment Neck pain rated 3-4/10 with reported L worse than R side. Upper shoulder: L 3/10 Upper back pain rated 4/10 Ruling Machine Operator Goal (LTG) Pt to increase score on 30 sec Sit to Stand to at least 10 repetitions in order to demonstrate improvement in functional mobility and get closer to age-related norms. LTG Duration 01/24/23 Assessment Summary Assessment Increased tenderness to palpation today along lateral patella, but still tolerated joint mobilizations well. If pt continues to worsen with symptoms, may benefit from return to PCP Physical Therapy Plan Frequency and Duration Frequency of Treatment 1-2x/week Plan of Care Start Date 10/26/22 Plan of Care End Date 01/24/23 Therapeutic Interventions Therapeutic Interventions Balance Training,Gait Training ,Home Exercise Program,Joint Mobilizations,Manual Therapy, Neuromuscular Re-education, Patient/Caregiver Education, Self-Care/Home Management,Soft Tissue Mobilization,Taping, Therapeutic Activities, Therapeutic Exercises Modalities Cold Pack/Ice Massage,Electric Stimulation,Hot Packs, Ultrasound Next Visit Focus/Plan Next Note Type Treatment Note Next Visit Plan LE strengthing, patellar mobilizations, patellar taping
--- NOTE | 2022-12-02 10:27 | PT.OTN ---
Current Diagnoses Primary osteoarthritis, unspecified site (12/02/22) Patellofemoral disorders, right knee (12/02/22) Patellofemoral disorders, left knee (12/02/22) Muscle weakness (generalized) (12/02/22) Unsteadiness on feet (12/02/22) Other abnormalities of gait and mobility (12/02/22) Physical Therapy Treatment Note PT-OP-A Visit Information Start: 10/26/22 12:01 Freq: Status: Active Protocol: Document 12/02/22 09:12 SW (Rec: 12/02/22 10:26 SW [id number]) Out-Patient Physical Therapy Visit Information Visit Information Visit Type Treatment Note Visit Start Time 09:15 Visit Stop Time 10:00 Total Visit Minutes 45 Visit Number 10 Number of METER CALIBRATOR Visits 1 PT-OP-B Current Condition Start: 10/26/22 12:01 Freq: Status: Active Protocol: Document 10/26/22 09:30 DCW (Rec: 10/26/22 12:24 DCW [id number]) Current Condition History of Current Condition Onset Date 2016 Current Complaints Knee pain, difficulty walking, fatigue History of Current Condition Pt is a 62 year old female presenting with a long- standing history of bilateral knee pain. Pt underwent a R TKA in 2016, and feels she never truly recovered from it, experiencing pain ever since. Pt notes that also, due to the changed in gait because of her right knee, her left knee has also been bothering her ever since surgery. Pt continues to experience swelling, which is worsened by walking or just spending time up throughout the day. Already spends a lot of time with her feet elevated, icing her knees, and uses compression stockings, but still had increased right LE edema and joint effusion. Pt still tried to walk every day, will either walk to [facility] and then walk two laps, or walk down to [employer] to do her shopping, although she has to take the bus back. Pt uses 4WW for ambulation outside of her home, furniture walks when inside. Prior Treatments and Tests 2016 R TKA Personal Factors Other Personal Factors That May Effect Asthma, cervical DJD, chronic Therapy/Recovery LBP, HTN, Fibromyalgia, OA, DM II/Neuropathy PT-OP-C Subjective Start: 10/26/22 12:01 Freq: Status: Active Protocol: Document 12/02/22 09:12 SW (Rec: 12/02/22 10:26 SW [id number]) OP-PT Subjective Patient Comments Patient Comments Pt she was miserable over the weekend, but it was a little better on Wednesday, when the weather got nicer. Left knee has been getting better, right knee is painful. She goes to doctor today. PT-OP-E Functional Tests Start: 10/26/22 12:01 Freq: Status: Active Protocol: Document 10/26/22 09:30 DCW (Rec: 10/26/22 12:24 DCW [id number]) Functional Tests 2 Minute Walk Test Distance 320' Device Used 4WW Comments 2.66 ft/sec 30 Second Sit to Stand Test Score 6 repetitions Timed Up and Go (TUG) Score 21.63 /s AD Comments Three-trial average (24.19, 21 .04, 19.63) TUG Impairment Rating 100% Impaired (Score 20) PT-OP-F Manual Assessment Start: 10/26/22 12:37 Freq: Status: Active Protocol: Document 10/26/22 09:30 DCW (Rec: 10/26/22 12:39 DCW [id number]) Manual Assessments Joint Mobility Assessment Joint Mobility Assessment severe lateral deviation of bilateral patella at rest, remain laterally pulled during knee extension, poor VMO activation PT-OP-G Mobility & Gait Start: 10/26/22 12:01 Freq: Status: Active Protocol: Document 10/26/22 09:30 DCW (Rec: 10/26/22 12:24 DCW [id number]) OP Gait Assessment Comments Gait Comments Pt ambulates with moderate trendelenberg gait pattern using 4WW, increased knee valgus in standing. Appropriate neutral positioning of feet, no excessive foot rotation. PT-OP-K Range of Motion Start: 10/26/22 12:01 Freq: Status: Active Protocol: Document 10/26/22 09:30 DCW (Rec: 10/26/22 12:24 DCW [id number]) Knee Goniometric Range of Motion Knee Right Patient Position Supine Flexion Active (degrees) 112 Extension Active (degrees) 8 Left Patient Position Supine Flexion Active (degrees) 124 Extension Active (degrees) 3 PT-OP-L Special Tests Start: 10/26/22 12:37 Freq: Status: Active Protocol: Document 10/26/22 09:30 DCW (Rec: 10/26/22 12:39 DCW [id number]) Special Tests Knee Special Tests Patellar Grind Test Test Results Positive bilaterally Patella Tap Test Results Positive right Dsouza Chondromalacia Test Results Positive bilaterally PT-OP-M Strength Start: 10/26/22 12:01 Freq: Status: Active Protocol: Document 10/26/22 09:30 DCW (Rec: 10/26/22 12:24 DCW [id number]) Hip Strength Hip Manual Muscle Testing Right Flexion (L2) 4 Good Abduction 4- Good- Adduction 4 Good External Rotation 4 Good Internal Rotation 4 Good Left Flexion (L2) 4 Good Abduction 4- Good- Adduction 4 Good External Rotation 4 Good Internal Rotation 4 Good Knee Strength Knee Manual Muscle Testing Right Flexion (S2) 3+ Fair+ Extension (L3) 4- Good- Left Flexion (S2) 4+ Good+ Extension (L3) 4+ Good+ Ankle/Foot Strength Ankle and Foot Manual Muscle Testing Right Dorsiflexion (L4) 4 Good Left Dorsiflexion (L4) 4 Good PT-OP-Q Treatments Start: 10/26/22 12:01 Freq: Status: Active Protocol: Document 12/02/22 09:12 SW (Rec: 12/02/22 10:26 SW [id number]) Cardio Equipment Recumbent Elliptical (Mobile Accord) Duration (Minutes) 8 Resistance 5 Seat Position 8 Gym Equipment Shuttle Recovery Unilateral Squats Resistance 37# Shuttle Recovery Platform Stable Bilateral Squats Details Adductor Ball Squeeze Resistance 75# (3 new) Shuttle Recovery Platform Stable Reps/Time RLE VMO bias Therapeutic Exercises Sitting Exercises Hamstring Stretch Sitting Exercise Name Hamstring Stretch Side left Comments mm cramping, good response Hamstring Curl Sitting Exercise Name HS Curls Side bilateral Resistance [place] 3 LAQ Sitting Exercise Name LAQ w/VMO facilitation Side bilateral Resistance 5# Manual Therapy Treatment Joint Mobilizations Patella Joint B patella Direction Inf/sup, medial Grade II Body Position Supine Self-Care/Home Management Treatment Education Patient Education Body Mechanics,Home Exercise Program,Posture Other Education Instructed patient on progression with HEP exercise resistance using TB, on stable furniture, as an option instead of purchasing weights. Educated pt on importance of mm load to make changes in strength. Posture during ther ex, for back and neck. PT-OP-R Modalities Start: 11/18/22 11:41 Freq: Status: Active Protocol: Document 11/18/22 10:06 (Rec: 11/18/22 11:44 [id number]) Hot Pack/Cold Pack Treatment Hot Pack Patient Position Supine Treatment Duration (minutes) 15 Comments LE on bolster, 7 layers, cheng within reach PT-OP-T Assessment and Plan Start: 10/26/22 12:01 Freq: Status: Active Protocol: Document 12/02/22 09:12 (Rec: 12/02/22 10:26 [id number]) Physical Therapy Assessment Goals Three Impairment Pt exhibits poor patellofemoral tracking bilaterally [facility] Goal (LTG) Pt to exhibit bilateral patellofemoral tracking which at the very least improved from lateral pull to neutral pull during leg extension LTG Duration 01/24/23 One Impairment Pt does not have an appropriate home exercise program Short Term Goal (STG) Pt to be independent and compliant with an appropriate HEP STG Duration 11/26/22 Two Impairment Pt performs 6 repetitions during 30 second Sit to Stand Impairment Neck pain rated 3-4/10 with reported L worse than R side. Upper shoulder: L 3/10 Upper back pain rated 4/10 [facility] Goal (LTG) Pt to increase score on 30 sec Sit to Stand to at least 10 repetitions in order to demonstrate improvement in functional mobility and get closer to age-related norms. LTG Duration 01/24/23 Assessment Summary Assessment Pt tolerated joint mobilzation well today, no increase in symptoms. Progressed resistance/weight with LE strengthening this date, tolerated well, no increased pain. Patient scheduled to see her Dr today for RLE concerns . Physical Therapy Plan Frequency and Duration Frequency of Treatment 1-2x/week Plan of Care Start Date 10/26/22 Plan of Care End Date 01/24/23 Therapeutic Interventions Therapeutic Interventions Balance Training,Gait Training ,Home Exercise Program,Joint Mobilizations,Manual Therapy, Neuromuscular Re-education, Patient/Caregiver Education, Self-Care/Home Management,Soft Tissue Mobilization,Taping, Therapeutic Activities, Therapeutic Exercises Modalities Cold Pack/Ice Massage,Electric Stimulation,Hot Packs, Ultrasound Next Visit Focus/Plan Next Note Type Treatment Note Next Visit Plan LE strengthing, patellar mobilizations, patellar taping
--- NOTE | 2022-12-14 09:45 | PT.OTN ---
Current Diagnoses Primary osteoarthritis, unspecified site (12/14/22) Patellofemoral disorders, right knee (12/14/22) Patellofemoral disorders, left knee (12/14/22) Muscle weakness (generalized) (12/14/22) Unsteadiness on feet (12/14/22) Other abnormalities of gait and mobility (12/14/22) Physical Therapy Treatment Note PT-OP-A Visit Information Start: 10/26/22 12:01 Freq: Status: Active Protocol: Document 12/14/22 09:04 SP (Rec: 12/14/22 09:50 SP [id number]) Out-Patient Physical Therapy Visit Information Visit Information Visit Type Treatment Note Visit Start Time 09:04 Visit Stop Time 09:45 Total Visit Minutes 41 Visit Number 11 Number of PACKING AND WRAPPING SUPERVISOR Visits 2 Precautions Precautions 12/14/22: pt states: 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 PT-OP-B Current Condition Start: 10/26/22 12:01 Freq: Status: Active Protocol: Document 10/26/22 09:30 DCW (Rec: 10/26/22 12:24 DCW [id number]) Current Condition History of Current Condition Onset Date 2016 Current Complaints Knee pain, difficulty walking, fatigue History of Current Condition Pt is a 62 year old female presenting with a long- standing history of bilateral knee pain. Pt underwent a R TKA in 2016, and feels she never truly recovered from it, experiencing pain ever since. Pt notes that also, due to the changed in gait because of her right knee, her left knee has also been bothering her ever since surgery. Pt continues to experience swelling, which is worsened by walking or just spending time up throughout the day. Already spends a lot of time with her feet elevated, icing her knees, and uses compression stockings, but still had increased right LE edema and joint effusion. Pt still tried to walk every day, will either walk to [facility] and then walk two laps, or walk down to [employer] to do her shopping, although she has to take the bus back. Pt uses 4WW for ambulation outside of her home, furniture walks when inside. Prior Treatments and Tests 2016 R TKA Personal Factors Other Personal Factors That May Effect Asthma, cervical DJD, chronic Therapy/Recovery LBP, HTN, Fibromyalgia, OA, DM II/Neuropathy PT-OP-C Subjective Start: 10/26/22 12:01 Freq: Status: Active Protocol: Document 12/14/22 09:04 SP (Rec: 12/14/22 09:50 SP [id number]) OP-PT Subjective Patient Comments Patient Comments Pt reports has been walking daily [place] [address] [place] [employer], usually [address] but at times [address]. The cold lately has been bothering her and R knee is miserable. End November took fluid off R knee and told no growth. PT-OP-E Functional Tests Start: 10/26/22 12:01 Freq: Status: Active Protocol: Document 10/26/22 09:30 DCW (Rec: 10/26/22 12:24 DCW [id number]) Functional Tests 2 Minute Walk Test Distance 320' Device Used 4WW Comments 2.66 ft/sec 30 Second Sit to Stand Test Score 6 repetitions Timed Up and Go (TUG) Score 21.63 /s AD Comments Three-trial average (24.19, 21 .04, 19.63) TUG Impairment Rating 100% Impaired (Score 20) PT-OP-F Manual Assessment Start: 10/26/22 12:37 Freq: Status: Active Protocol: Document 10/26/22 09:30 DCW (Rec: 10/26/22 12:39 DCW [id number]) Manual Assessments Joint Mobility Assessment Joint Mobility Assessment severe lateral deviation of bilateral patella at rest, remain laterally pulled during knee extension, poor VMO activation PT-OP-G Mobility & Gait Start: 10/26/22 12:01 Freq: Status: Active Protocol: Document 10/26/22 09:30 DCW (Rec: 10/26/22 12:24 DCW [id number]) OP Gait Assessment Comments Gait Comments Pt ambulates with moderate trendelenberg gait pattern using 4WW, increased knee valgus in standing. Appropriate neutral positioning of feet, no excessive foot rotation. PT-OP-K Range of Motion Start: 10/26/22 12:01 Freq: Status: Active Protocol: Document 10/26/22 09:30 DCW (Rec: 10/26/22 12:24 DCW [id number]) Knee Goniometric Range of Motion Knee Right Patient Position Supine Flexion Active (degrees) 112 Extension Active (degrees) 8 Left Patient Position Supine Flexion Active (degrees) 124 Extension Active (degrees) 3 PT-OP-L Special Tests Start: 10/26/22 12:37 Freq: Status: Active Protocol: Document 10/26/22 09:30 DCW (Rec: 10/26/22 12:39 DCW [id number]) Special Tests Knee Special Tests Patellar Grind Test Test Results Positive bilaterally Patella Tap Test Results Positive right Dsouza Chondromalacia Test Results Positive bilaterally PT-OP-M Strength Start: 10/26/22 12:01 Freq: Status: Active Protocol: Document 10/26/22 09:30 DCW (Rec: 10/26/22 12:24 DCW [id number]) Hip Strength Hip Manual Muscle Testing Right Flexion (L2) 4 Good Abduction 4- Good- Adduction 4 Good External Rotation 4 Good Internal Rotation 4 Good Left Flexion (L2) 4 Good Abduction 4- Good- Adduction 4 Good External Rotation 4 Good Internal Rotation 4 Good Knee Strength Knee Manual Muscle Testing Right Flexion (S2) 3+ Fair+ Extension (L3) 4- Good- Left Flexion (S2) 4+ Good+ Extension (L3) 4+ Good+ Ankle/Foot Strength Ankle and Foot Manual Muscle Testing Right Dorsiflexion (L4) 4 Good Left Dorsiflexion (L4) 4 Good PT-OP-Q Treatments Start: 10/26/22 12:01 Freq: Status: Active Protocol: Document 12/14/22 09:04 SP (Rec: 12/14/22 09:50 SP [id number]) Cardio Equipment Recumbent Elliptical (Biodex) Duration (Minutes) 8 Resistance 5 Seat Position 8 Therapeutic Exercises Sitting Exercises SELF STMs Sitting Exercise Name added to HEP Equipment Used rolling pin: quad, ITB, HS, calf, TA Reps/Minutes 2 min total Comments good feedback, not going firm on lumps Hamstring Curl Sitting Exercise Name HS Curls Side bilateral Resistance Black Hat 3 Reps/Minutes 2x10 Comments good LAQ Sitting Exercise Name LAQ w/VMO facilitation Side bilateral Resistance TB #2 orange looped around ankles Equipment Used mesh chair Reps/Minutes 2x10 Comments good form, painfree Standing Exercises STS Standing Exercise Name STS> STS transfer w/LLE slightly behind for transfer safety Resistance Hands on hips Equipment Used no ball between knees this am Reps/Minutes 8 reps in 30 sec Comments Cues required for knee alignment/hip extension upon standing Manual Therapy Treatment Soft Tissue Mobilization R knee Body Location R Knee Mobilization Type Myofascial Release,Strain/ Counterstrain Intensity/Depth Superficial Body Position Sitting Comments Gentle STM to quad/sub patellar Joint Mobilizations Patella Joint B patella Direction Inf/sup, medial Grade II Body Position Supine Taping Medial patella pull Body Location B patella Treatment Focus Medial pull of patella Type of Tape Kinesio Tape Comments -V horizontal lat pat ( superior/inferior)>medial -C strip tib plateau lateral patella to anterior superior patella. *Assist med tracking. PT-OP-R Modalities Start: 11/18/22 11:41 Freq: Status: Active Protocol: Document 11/18/22 10:06 SW (Rec: 11/18/22 11:44 SW [id number]) Hot Pack/Cold Pack Treatment Hot Pack Patient Position Supine Treatment Duration (minutes) 15 Comments LE on bolster, 7 layers, cheng within reach PT-OP-T Assessment and Plan Start: 10/26/22 12:01 Freq: Status: Active Protocol: Document 12/14/22 09:04 SP (Rec: 12/14/22 09:50 SP [id number]) Physical Therapy Assessment Goals Three Impairment Pt exhibits poor patellofemoral tracking bilaterally [facility] Goal (LTG) Pt to exhibit bilateral patellofemoral tracking which at the very least improved from lateral pull to neutral pull during leg extension 12/14/22: Ktkaping helps with knee cap alignment wears for 2 days, less pain but better with warmer weather than cold. After walks pain lateral R knee lumps but with rest /ice/ elevation goes down. LTG Duration 01/24/23 progressing 12/14/22 One Impairment Pt does not have an appropriate home exercise program Short Term Goal (STG) Pt to be independent and compliant with an appropriate HEP 12/14/22: STS, LAQ TB, TB HS curl. States performs SLR and bridging home. Added self STMs for legs with goodresponse. STG Duration 11/26/22 progressing 12/14/22 Two Impairment Pt performs 6 repetitions during 30 second Sit to Stand Impairment Neck pain rated 3-4/10 with reported L worse than R side. Upper shoulder: L 3/10 Upper back pain rated 4/10 [facility] Goal (LTG) Pt to increase score on 30 sec Sit to Stand to at least 10 repetitions in order to demonstrate improvement in functional mobility and get closer to age-related norms. 12/14/22: progressing 8 reps in 30 sec, hands on hips mesh chair. LTG Duration 01/24/23 progressing 12/14/22 Assessment Summary Assessment Pt feels making gain with PT and strengthening exercise and walking. Able to complete sit stands without UE support today. Good feedback response to self STMs using rolling pin today. KTaping good response and helps R>L knees feel more supportive. Physical Therapy Plan Frequency and Duration Frequency of Treatment 1-2x/week Plan of Care Start Date 10/26/22 Plan of Care End Date 01/24/23 Therapeutic Interventions Therapeutic Interventions Balance Training,Gait Training ,Home Exercise Program,Joint Mobilizations,Manual Therapy, Neuromuscular Re-education, Patient/Caregiver Education, Self-Care/Home Management,Soft Tissue Mobilization,Taping, Therapeutic Activities, Therapeutic Exercises Modalities Cold Pack/Ice Massage,Electric Stimulation,Hot Packs, Ultrasound Next Visit Focus/Plan Next Note Type Treatment Note Next Visit Plan PT to complete Progress Note. Check HEP, trial standing HScurls, hurdles, continue Ktaping POC: LE strengthing, patellar mobilizations, patellar taping
--- NOTE | 2022-12-17 16:46 | PT.OTN ---
Current Diagnoses Primary osteoarthritis, unspecified site (12/17/22) Patellofemoral disorders, right knee (12/17/22) Patellofemoral disorders, left knee (12/17/22) Muscle weakness (generalized) (12/17/22) Unsteadiness on feet (12/17/22) Other abnormalities of gait and mobility (12/17/22) Physical Therapy Treatment Note PT-OP-A Visit Information Start: 10/26/22 12:01 Freq: Status: Active Protocol: Document 12/17/22 09:15 SW (Rec: 12/17/22 16:46 SW [id number]) Out-Patient Physical Therapy Visit Information Visit Information Visit Type Treatment Note Visit Start Time 09:15 Visit Stop Time 09:55 Total Visit Minutes 40 Visit Number 12 Number of CROSS TIE CUTTER Visits 3 PT-OP-B Current Condition Start: 10/26/22 12:01 Freq: Status: Active Protocol: Document 10/26/22 09:30 DCW (Rec: 10/26/22 12:24 DCW [id number]) Current Condition History of Current Condition Onset Date 2016 Current Complaints Knee pain, difficulty walking, fatigue History of Current Condition Pt is a 62 year old female presenting with a long- standing history of bilateral knee pain. Pt underwent a R TKA in 2016, and feels she never truly recovered from it, experiencing pain ever since. Pt notes that also, due to the changed in gait because of her right knee, her left knee has also been bothering her ever since surgery. Pt continues to experience swelling, which is worsened by walking or just spending time up throughout the day. Already spends a lot of time with her feet elevated, icing her knees, and uses compression stockings, but still had increased right LE edema and joint effusion. Pt still tried to walk every day, will either walk to [facility] and then walk two laps, or walk down to [employer] to do her shopping, although she has to take the bus back. Pt uses 4WW for ambulation outside of her home, furniture walks when inside. Prior Treatments and Tests 2016 R TKA Personal Factors Other Personal Factors That May Effect Asthma, cervical DJD, chronic Therapy/Recovery LBP, HTN, Fibromyalgia, OA, DM II/Neuropathy PT-OP-C Subjective Start: 10/26/22 12:01 Freq: Status: Active Protocol: Document 12/17/22 09:15 SW (Rec: 12/17/22 16:46 SW [id number]) OP-PT Subjective Patient Comments Patient Comments Pt reports that she has hurt her R shoulder. K tape came off R knee d/t more showering to relieve shoulder discomfort . PT-OP-E Functional Tests Start: 10/26/22 12:01 Freq: Status: Active Protocol: Document 10/26/22 09:30 DCW (Rec: 10/26/22 12:24 DCW [id number]) Functional Tests 2 Minute Walk Test Distance 320' Device Used 4WW Comments 2.66 ft/sec 30 Second Sit to Stand Test Score 6 repetitions Timed Up and Go (TUG) Score 21.63 /s AD Comments Three-trial average (24.19, 21 .04, 19.63) TUG Impairment Rating 100% Impaired (Score 20) PT-OP-F Manual Assessment Start: 10/26/22 12:37 Freq: Status: Active Protocol: Document 10/26/22 09:30 DCW (Rec: 10/26/22 12:39 DCW [id number]) Manual Assessments Joint Mobility Assessment Joint Mobility Assessment severe lateral deviation of bilateral patella at rest, remain laterally pulled during knee extension, poor VMO activation PT-OP-G Mobility & Gait Start: 10/26/22 12:01 Freq: Status: Active Protocol: Document 10/26/22 09:30 DCW (Rec: 10/26/22 12:24 DCW [id number]) OP Gait Assessment Comments Gait Comments Pt ambulates with moderate trendelenberg gait pattern using 4WW, increased knee valgus in standing. Appropriate neutral positioning of feet, no excessive foot rotation. PT-OP-K Range of Motion Start: 10/26/22 12:01 Freq: Status: Active Protocol: Document 10/26/22 09:30 DCW (Rec: 10/26/22 12:24 DCW [id number]) Knee Goniometric Range of Motion Knee Right Patient Position Supine Flexion Active (degrees) 112 Extension Active (degrees) 8 Left Patient Position Supine Flexion Active (degrees) 124 Extension Active (degrees) 3 PT-OP-L Special Tests Start: 10/26/22 12:37 Freq: Status: Active Protocol: Document 10/26/22 09:30 DCW (Rec: 10/26/22 12:39 DCW [id number]) Special Tests Knee Special Tests Patellar Grind Test Test Results Positive bilaterally Patella Tap Test Results Positive right Dsouza Chondromalacia Test Results Positive bilaterally PT-OP-M Strength Start: 10/26/22 12:01 Freq: Status: Active Protocol: Document 10/26/22 09:30 DCW (Rec: 10/26/22 12:24 DCW [id number]) Hip Strength Hip Manual Muscle Testing Right Flexion (L2) 4 Good Abduction 4- Good- Adduction 4 Good External Rotation 4 Good Internal Rotation 4 Good Left Flexion (L2) 4 Good Abduction 4- Good- Adduction 4 Good External Rotation 4 Good Internal Rotation 4 Good Knee Strength Knee Manual Muscle Testing Right Flexion (S2) 3+ Fair+ Extension (L3) 4- Good- Left Flexion (S2) 4+ Good+ Extension (L3) 4+ Good+ Ankle/Foot Strength Ankle and Foot Manual Muscle Testing Right Dorsiflexion (L4) 4 Good Left Dorsiflexion (L4) 4 Good PT-OP-Q Treatments Start: 10/26/22 12:01 Freq: Status: Active Protocol: Document 12/17/22 09:15 SW (Rec: 12/17/22 16:46 SW [id number]) Cardio Equipment Recumbent Elliptical (BiodDezineforce) Duration (Minutes) 8 Resistance 6 Seat Position 8 Gym Equipment Shuttle Recovery Unilateral Squats Resistance 50# Shuttle Recovery Platform Stable Reps/Time 2x10 Bilateral Squats Resistance 82# (3 new) Shuttle Recovery Platform Stable Reps/Time 2 x 10 Therapeutic Exercises Sitting Exercises LAQ Sitting Exercise Name LAQ w/VMO facilitation Side bilateral Resistance TB #2 orange looped around ankles Equipment Used mesh chair Reps/Minutes 2x10 Comments good form, painfree Standing Exercises HS curls Side bilateral Resistance Green TB Equipment Used Therapist assist Reps/Minutes 2x10 STS Standing Exercise Name STS Resistance Hands on hips Equipment Used no ball between knees this am Reps/Minutes x10 Comments Cues required for knee alignment/hip extension upon standing Manual Therapy Treatment Soft Tissue Mobilization R knee Body Location R Knee Mobilization Type Myofascial Release,Strain/ Counterstrain Intensity/Depth Superficial Body Position Sitting Comments Gentle STM to quad/sub patellar Joint Mobilizations Patella Joint B patella Direction Inf/sup, medial Grade II Body Position Supine Taping Medial patella pull Body Location B patella Treatment Focus Medial pull of patella Type of Tape Kinesio Tape Comments -V horizontal lat pat ( superior/inferior)>medial -C strip tib plateau lateral patella to anterior superior patella. *Assist med tracking. PT-OP-R Modalities Start: 11/18/22 11:41 Freq: Status: Active Protocol: Document 11/18/22 10:06 SW (Rec: 11/18/22 11:44 SW [id number]) Hot Pack/Cold Pack Treatment Hot Pack Patient Position Supine Treatment Duration (minutes) 15 Comments LE on bolster, 7 layers, cheng within reach PT-OP-T Assessment and Plan Start: 10/26/22 12:01 Freq: Status: Active Protocol: Document 12/17/22 09:15 SW (Rec: 12/17/22 16:46 SW [id number]) Physical Therapy Assessment Goals Three Impairment Pt exhibits poor patellofemoral tracking bilaterally Chcf Goal (LTG) Pt to exhibit bilateral patellofemoral tracking which at the very least improved from lateral pull to neutral pull during leg extension 12/14/22: Ktkaping helps with knee cap alignment wears for 2 days, less pain but better with warmer weather than cold. After walks pain lateral R knee lumps but with rest /ice/ elevation goes down. LTG Duration 01/24/23 progressing 12/14/22 One Impairment Pt does not have an appropriate home exercise program Short Term Goal (STG) Pt to be independent and compliant with an appropriate HEP 12/14/22: STS, LAQ TB, TB HS curl. States performs SLR and bridging home. Added self STMs for legs with goodresponse. STG Duration 11/26/22 progressing 12/14/22 Two Impairment Pt performs 6 repetitions during 30 second Sit to Stand Impairment Neck pain rated 3-4/10 with reported L worse than R side. Upper shoulder: L 3/10 Upper back pain rated 4/10 [employer] Lieutenant Goal (LTG) Pt to increase score on 30 sec Sit to Stand to at least 10 repetitions in order to demonstrate improvement in functional mobility and get closer to age-related norms. 12/14/22: progressing 8 reps in 30 sec, hands on hips mesh chair. LTG Duration 01/24/23 progressing 12/14/22 Assessment Summary Assessment Progressed resistance with LE strengthening and seated HS curls to standing, tolerated well with no increase in symptoms. Reviewed STS w/no UE support, able to tolerate without compensation for the R knee, verbal cues required for control when ascending/ descending. Physical Therapy Plan Frequency and Duration Frequency of Treatment 1-2x/week Plan of Care Start Date 10/26/22 Plan of Care End Date 01/24/23 Therapeutic Interventions Therapeutic Interventions Balance Training,Gait Training ,Home Exercise Program,Joint Mobilizations,Manual Therapy, Neuromuscular Re-education, Patient/Caregiver Education, Self-Care/Home Management,Soft Tissue Mobilization,Taping, Therapeutic Activities, Therapeutic Exercises Modalities Cold Pack/Ice Massage,Electric Stimulation,Hot Packs, Ultrasound Next Visit Focus/Plan Next Note Type Treatment Note Next Visit Plan PT to complete Progress Note. Check HEP, trial standing HScurls, hurdles, continue Ktaping POC: LE strengthing, patellar mobilizations, patellar taping
--- NOTE | 2023-01-15 13:31 | PT-OP ANOTE ---
Pt came in today requesting a quick conversation. Reports her recent bone scan shows that her TKA s/p 8 years is loose, and she would like opinions on whether or not she should undergo a revision. Pt admitted that she did not want to go through that again, and I've had problems with it for 8 years, what's another 20-30? Discussed that recovery could potentially be difficult, but should continue to get better following revision, whereas if she does not undergo revision, it will just stay the same.Pt agreed to discuss her concerns with the surgeon when they meet later this month.
--- NOTE | 2023-03-22 16:14 | PT.OPDS ---
Current Diagnoses Primary osteoarthritis, unspecified site (12/17/22) Patellofemoral disorders, right knee (12/17/22) Patellofemoral disorders, left knee (12/17/22) Muscle weakness (generalized) (12/17/22) Unsteadiness on feet (12/17/22) Other abnormalities of gait and mobility (12/17/22) Visit Care Team Role Provider Type Kendall Garnica MD Attending Provider Physician Family Provider Primary Care Provider Referring Provider Specialty: Internal Medicine Address: [address] [place] [address], [facility] Email: [email or web address] Visit Number Visit Number 12 Discharge Summary PT-OP-B Current Condition Start: 10/26/22 12:01 Freq: Status: Active Protocol: Document 10/26/22 09:30 DCW (Rec: 10/26/22 12:24 DCW [id number]) Current Condition History of Current Condition Onset Date 2016 Current Complaints Knee pain, difficulty walking, fatigue History of Current Condition Pt is a 62 year old female presenting with a long- standing history of bilateral knee pain. Pt underwent a R TKA in 2016, and feels she never truly recovered from it, experiencing pain ever since. Pt notes that also, due to the changed in gait because of her right knee, her left knee has also been bothering her ever since surgery. Pt continues to experience swelling, which is worsened by walking or just spending time up throughout the day. Already spends a lot of time with her feet elevated, icing her knees, and uses compression stockings, but still had increased right LE edema and joint effusion. Pt still tried to walk every day, will either walk to [facility] and then walk two laps, or walk down to [employer] to do her shopping, although she has to take the bus back. Pt uses 4WW for ambulation outside of her home, furniture walks when inside. Prior Treatments and Tests 2015 R TKA Personal Factors Other Personal Factors That May Effect Asthma, cervical DJD, chronic Therapy/Recovery LBP, HTN, Fibromyalgia, OA, DM II/Neuropathy PT-OP-C Subjective Start: 10/26/22 12:01 Freq: Status: Active Protocol: Document 12/17/22 09:15 SW (Rec: 12/17/22 16:46 SW [id number]) OP-PT Subjective Patient Comments Patient Comments Pt reports that she has hurt her R shoulder. K tape came off R knee d/t more showering to relieve shoulder discomfort . PT-OP-E Functional Tests Start: 10/26/22 12:01 Freq: Status: Active Protocol: Document 10/26/22 09:30 DCW (Rec: 10/26/22 12:24 DCW [id number]) Functional Tests 2 Minute Walk Test Distance 320' Device Used 4WW Comments 2.66 ft/sec 30 Second Sit to Stand Test Score 6 repetitions Timed Up and Go (TUG) Score 21.63 /s AD Comments Three-trial average (24.19, 21 .04, 19.63) TUG Impairment Rating 100% Impaired (Score 20) PT-OP-F Manual Assessment Start: 10/26/22 12:37 Freq: Status: Active Protocol: Document 10/26/22 09:30 DCW (Rec: 10/26/22 12:39 DCW [id number]) Manual Assessments Joint Mobility Assessment Joint Mobility Assessment severe lateral deviation of bilateral patella at rest, remain laterally pulled during knee extension, poor VMO activation PT-OP-G Mobility & Gait Start: 10/26/22 12:01 Freq: Status: Active Protocol: Document 10/26/22 09:30 DCW (Rec: 10/26/22 12:24 DCW [id number]) OP Gait Assessment Comments Gait Comments Pt ambulates with moderate trendelenberg gait pattern using 4WW, increased knee valgus in standing. Appropriate neutral positioning of feet, no excessive foot rotation. PT-OP-K Range of Motion Start: 10/26/22 12:01 Freq: Status: Active Protocol: Document 10/26/22 09:30 DCW (Rec: 10/26/22 12:24 DCW [id number]) Knee Goniometric Range of Motion Knee Right Patient Position Supine Flexion Active (degrees) 112 Extension Active (degrees) 8 Left Patient Position Supine Flexion Active (degrees) 124 Extension Active (degrees) 3 PT-OP-L Special Tests Start: 10/26/22 12:37 Freq: Status: Active Protocol: Document 10/26/22 09:30 DCW (Rec: 10/26/22 12:39 DCW [id number]) Special Tests Knee Special Tests Patellar Grind Test Test Results Positive bilaterally Patella Tap Test Results Positive right Dsouza Chondromalacia Test Results Positive bilaterally PT-OP-M Strength Start: 10/26/22 12:01 Freq: Status: Active Protocol: Document 10/26/22 09:30 DCW (Rec: 10/26/22 12:24 DCW [id number]) Hip Strength Hip Manual Muscle Testing Right Flexion (L2) 4 Good Abduction 4- Good- Adduction 4 Good External Rotation 4 Good Internal Rotation 4 Good Left Flexion (L2) 4 Good Abduction 4- Good- Adduction 4 Good External Rotation 4 Good Internal Rotation 4 Good Knee Strength Knee Manual Muscle Testing Right Flexion (S2) 3+ Fair+ Extension (L3) 4- Good- Left Flexion (S2) 4+ Good+ Extension (L3) 4+ Good+ Ankle/Foot Strength Ankle and Foot Manual Muscle Testing Right Dorsiflexion (L4) 4 Good Left Dorsiflexion (L4) 4 Good PT-OP-T Assessment and Plan Start: 10/26/22 12:01 Freq: Status: Active Protocol: Document 03/22/23 16:13 DCW (Rec: 03/22/23 16:14 DCW [id number]) Physical Therapy Assessment Assessment Summary Assessment Pt canceled last visit, no further follow-up appointments scheduled. Pt has now not been seen in three months. Pt will be discharged from skilled PT at this time, will require a new referral in order to return. Physical Therapy Plan Discharge Physical Therapy Discharge Reasons No Longer Attending PT
== END 2023-03-25 10:26 | disposition home or self-care (01) ==
LOC: PHYS 09:15
PROVIDERS: Family Provider Internal Medicine; PCP Internal Medicine; Referring Provider Internal Medicine; Visit Provider Internal Medicine
DX: M22.2X1 Patellofemoral disorders, right knee (principal); M22.2X2 Patellofemoral disorders, left knee; M19.91 Primary osteoarthritis, unspecified site; R26.89 Other abnormalities of gait and mobility; M62.81 Muscle weakness (generalized); R26.81 Unsteadiness on feet
CPT/HCPCS: 97110; 97140; 97163; 97535

== ENCOUNTER → 2022-12-24 09:19 | Outpatient (CLI) | payer MEDICARE, MEDICAID, SELFPAY ==
[2022-12-24 11:15] LABS: Add Manual Diff / Slide Review NO; Basophils Absolute Auto 100 /uL (0-100); Basophils Percent Auto 0.6 % (0-2); Eosinophils Absolute Auto 100 /uL (0-450); Eosinophils Percent Auto 1.3 % (2-4); Hematocrit 35.9 % (36-46); Hemoglobin 12.6 g/dL (12.0-16.0); Lymphocytes Absolute Auto 2300 /uL (1100-4500); Lymphocytes Percent Auto 26.6 % (25-40); Mean Corpuscular HGB Conc 35.1 % (30-36); Mean Corpuscular Hemoglobin 29.1 PG (26-34); Mean Corpuscular Volume 83.1 fL (80-100); Monocytes Absolute Auto 500 /uL (0-900); Monocytes Percent Auto 5.9 % (3-14); Neutrophils Absolute Auto 5600 /uL (1500-7000); Neutrophils Percent Auto 65.6 % (50-75); Platelet Count 337 X10^3/uL (150-400); Red Blood Cell Count 4.32 X10^6/uL (4.0-5.2); Red Cell Distribution Width 13.5 % (11.6-14.8); White Blood Cell Count 8.6 X10^3/uL (4.5-11.0)
[2022-12-24 11:30] LABS: Erythrocyte Sedimentation Rate 12 MM/HR (0-20)
[2022-12-24 11:33] LABS: C-Reactive Protein Quant < 0.5 mg/dL (<1.0)
== END ==
PROVIDERS: Family Provider Internal Medicine; PCP Internal Medicine; Referring Provider Orthopaedic Surgery; Visit Provider Orthopaedic Surgery
DX: Z96.651 Presence of right artificial knee joint (principal)
CPT/HCPCS: 36415; 85025; 85651; 86140

== ENCOUNTER → 2023-01-04 08:10 | Outpatient (CLI) | payer MEDICARE, MEDICAID, SELFPAY ==
--- NOTE | 2023-01-04 | DI.NM.S_ITS ---
PROCEDURE: CO BONE SCAN WHOLE BODY RADIOPHARMACEUTICAL: 20.1 mCi Tc-99m MDP IV. INDICATIONS: RIGHT KNEE EFFUSION, H/O RT TOTAL KNEE REPLACEMENT TECHNIQUE: Delayed whole-body scintigrams were obtained approximately 3-4 hours after intravenous injection of radiotracer. Anterior and posterior views were acquired from vertex to feet. Additional left and right lateral views of the knees were obtained. COMPARISON: MR, LOW.EXTREM NO JOINT WO CONTRAS, 09/06/2017, 8:46. NM, BONE SCAN THREE PHASE, 08/13/2017, 10:35. [facility], NM, NM BONE SCAN WHOLE BODY, 08/29/2019, 13:31. [facility], CR, XR SHOULDER RT MIN 2V, 12/14/2022, 13:49. [facility], CR, XR TIBIA FIBULA RT 2V, 11/24/2022, 7:52. [facility] [place], CR, XR KNEE ARTHRITIC SERIES BI, 09/30/2022, 10:02. FINDINGS: There is right knee arthroplasty. There is increased activity in the lateral aspect of the femorotibial compartment and increased activity in the patellofemoral compartment. Mildly increased activity in the left knee is compatible with degenerative joint disease. There is increased activity in the right distal tibial shaft. No lesions are identified in skull, sternum, clavicles, scapulae, ribs, bony pelvis, and visualized shafts of the long bones. There are foci of increased uptake in cervical, thoracic and lumbar spine most likely secondary to degenerative disc and facet disease; early metastasis to spine could be obscured by degenerative changes. There are foci of increased periarticular activity, most pronounced in shoulders and feet, compatible with degenerative/arthritic changes. Question mild right hydronephrosis. IMPRESSION: 1. Right knee arthroplasty. Increased activity is seen in the lateral femorotibial compartment and patellofemoral compartment. Recommend radiographic and clinical correlation for prosthesis loosening. 2. Increased activity in the right tibial shaft Dictated by: Quinn Waller M.D. on 01/04/2023 at 12:58 Approved by: Quinn Waller M.D. on 01/04/2023 at 13:33
== END ==
PROVIDERS: Family Provider Internal Medicine; PCP Internal Medicine; Referring Provider Orthopaedic Surgery; Visit Provider Orthopaedic Surgery
DX: M25.461 Effusion, right knee (principal); Z96.651 Presence of right artificial knee joint
CPT/HCPCS: 78306; A9503

== ENCOUNTER → 2023-01-07 09:11 | Outpatient (CLI) | payer MEDICARE, MEDICAID, SELFPAY ==
[2023-01-07 10:46] LABS: BUN Creatinine Ratio 26.1 (6-22); Blood Urea Nitrogen 12 mg/dL (7-17); Calcium 9.2 mg/dL (8.4-10.2); Carbon Dioxide 28 mmol/L (22-32); Chloride 101 mmol/L (98-107); Estimated Glomerular Filt Rate > 60 mL/min (>60); Glucose 204 mg/dL (80-110); HEMOLYSIS < 15 (0-50); Potassium 3.8 mmol/L (3.4-5.1); Sodium 136 mmol/L (137-145)
[2023-01-07 12:59] LABS: Microalbumin Urine Random 1.1 mg/dL (0-1.6)
[2023-01-07 13:03] LABS: Creatinine Urine Random 70.6 mg/dL; Microalbumi Creatinin Ratio Ur 15.5 ug/mg CR (<30)
[2023-01-08 07:09] LABS: x Labcorp Estim. Avg Glu (eAG) 189 mg/dL (.); x Labcorp Hemoglobin A1c 8.2 % (4.8-5.6)
== END ==
PROVIDERS: Family Provider Internal Medicine; PCP Internal Medicine; Referring Provider Internal Medicine; Visit Provider Internal Medicine
DX: I10 Essential (primary) hypertension (principal); E08.40 Diabetes mellitus due to underlying condition with diabetic neuropathy, unspecified
CPT/HCPCS: 36415; 80048; 82043; 82570; 83036

== ENCOUNTER → 2023-04-16 08:11 | Outpatient (CLI) | payer MEDICARE, MEDICAID, SELFPAY ==
[2023-04-16 09:06] LABS: Hemoglobin A1C% w Est Avg Glu 8.5 % (4.0-6.0)
[2023-04-16 09:21] LABS: Aspartate Aminotransferase 17 IU/L (14-36); BUN Creatinine Ratio 33.3 (6-22); Blood Urea Nitrogen 19 mg/dL (7-17); Carbon Dioxide 27 mmol/L (22-32); Chloride 100 mmol/L (98-107); Estimated Glomerular Filt Rate > 60 mL/min (>60); Glucose 247 mg/dL (80-110); HEMOLYSIS < 15 (0-50); Potassium 4.3 mmol/L (3.4-5.1); Sodium 134 mmol/L (137-145)
== END ==
PROVIDERS: Family Provider Internal Medicine; PCP Internal Medicine; Referring Provider Internal Medicine; Visit Provider Internal Medicine
DX: E78.2 Mixed hyperlipidemia (principal); E11.42 Type 2 diabetes mellitus with diabetic polyneuropathy; I10 Essential (primary) hypertension
CPT/HCPCS: 36415; 80048; 83036; 84450

== ENCOUNTER 2023-07-03 13:09 | Emergency (ER) | payer MEDICARE, MEDICAID, SELFPAY ==
[2023-07-03 13:12] VITALS: BP 237/98; PULSE 82; RESP 16; TEMP 36.6; O2SAT 97; BMI 38.2
--- NOTE | 2023-07-03 13:23 | ED.EXTPRO ---
HPI - Extremity Problem General Chief complaint: Extremity Problem,Nontraumatic Stated complaint: poss blood clot R leg, sent by [facility] Time Seen by Provider: 07/03/23 13:12 Source: patient Mode of arrival: Ambulatory Limitations: no limitations History of Present Illness HPI Narrative: Patient is a 63-year-old female. In 2016 had a right total knee replacement. Has a follow-up with her orthopedic surgeon in approximately 2 weeks. Has had issues with her right knee since then. Has had swelling. Has small areas of swelling along the lateral aspect of the leg on the medial aspect. She has been seen by orthopedic surgeon for this. Had them drained at 1 point. She was told that it was a ?thrombosis? she was only on an aspirin. Some question as whether or not she has a bleeding disorder. Patient calls it a ?factor X? deficiency. She denies chest pain or shortness of breath. She thinks that the localized areas of swelling along her leg have been becoming larger over the past couple days. She was concerned about being able to wait until her follow-up appointment in 2 weeks so she went to the walk-in clinic. Was sent to the ER for evaluation of a DVT. Related Data Home Medications Medication Instructions Recorded Confirmed aspirin 81 mg tablet,delayed 81 mg PO DAILY ##0 08/27/11 07/03/23 release cholecalciferol (vitamin D3) 25 25 mcg PO DAILY 12/31/21 07/03/23 mcg (1,000 unit) capsule Previous Rx's Medication Instructions Recorded pen needle, diabetic 32 gauge x #100 ea 10/27/2110/20 (Comfort EZ Pen [place]) blood sugar diagnostic (Glucocard #450 ea 05/11/22 Expression strips) triamcinolone acetonide 0.5 % 1 applic topical BID #15 grams 05/27/22 topical ointment Diabetic Shoes #1 ea 08/17/22 hydroxyzine pamoate 25 mg capsule 25 mg PO TID #270 caps 11/17/22 pen needle, diabetic 32 gauge x #50 ea 02/19/2306/10 (Novofine 32) insulin aspar prot-insulin aspart See Rx Instructions .Route 04/08/23 100 unit/mL (70-30) subcutaneous .COMPLEX #45 mL pen (Novolog Mix 70-30FlexPen U-100) clonidine HCl 0.1 mg tablet 0.1 mg PO BID #180 tabs 04/15/23 colchicine 0.6 mg capsule 0.6 mg PO BID #180 caps 04/15/23 (Mitigare) hydrocodone 5 mg-acetaminophen 325 1 tab PO Q6H PRN pain #120 tabs 04/15/23 mg tablet estradiol 1 mg tablet 1 mg PO DAILY #90 tabs 04/26/23 albuterol sulfate 90 mcg/actuation 1 - 2 puff inhalation Q4-6H PRN 05/04/23 aerosol inhaler Shortness Of Breath #8.5 grams empagliflozin 25 mg tablet 50 mg (2 x 25 mg) PO DAILY #180 05/04/23 (Jardiance) tabs gabapentin 600 mg tablet 1,200 mg (2 x 600 mg) PO BID #180 05/04/23 tabs gabapentin 600 mg tablet 600 mg PO QNOON #90 tabs 05/04/23 lidocaine 5 % topical patch 1 patch topical DAILY #15 ea 05/04/23 lisinopril 20 mg tablet 20 mg PO DAILY #90 tabs 05/04/23 meloxicam 15 mg tablet 15 mg PO DAILY #90 tabs 05/04/23 metformin 1,000 mg tablet,extended 1,000 mg PO BID #180 tabs 05/04/23 release 24hr omeprazole 20 mg capsule,delayed 20 mg PO DAILY #90 caps 05/04/23 release ondansetron 4 mg disintegrating 4 - 8 mg (1 - 2 x 4 mg) PO Q6H PRN 05/04/23 tablet nausea and vomiting #20 tabs oxybutynin chloride 5 mg tablet 5 mg PO BID-TID PRN bladder spasms 05/04/23 #270 tabs simvastatin 20 mg tablet 20 mg PO DAILY #90 tabs 05/04/23 trazodone 150 mg tablet 150 mg PO BEDTIME #90 tabs 05/04/23 fluticasone propionate 50 2 spray intranasal DAILY #16 grams 05/05/23 mcg/actuation nasal spray,suspension (Flonase Allergy Relief) hydrocodone 5 mg-acetaminophen 325 1 tab PO Q6H PRN pain #120 tabs 05/05/23 mg tablet hydrocodone 5 mg-acetaminophen 325 1 tab PO QID PRN pain #120 tabs 05/05/23 mg tablet lancets 28 gauge (TechLITE Lancets) #500 ea 05/13/23 carisoprodol 350 mg tablet 350 mg PO BID #60 tabs 05/26/23 Allergies Allergy/AdvReac Type Severity Reaction Status Date / Time aripiprazole [From Abilify] AdvReac Intermediate Shakiness Verified 07/03/23 12:51 duloxetine AdvReac Mild back and Verified 07/03/23 12:51 leg pain Review of Systems Constitutional Constitutional: Reports system reviewed and no additional complaints, except as documented Cardiovascular Cardiovascular: Reports system reviewed and no additional complaints, except as documented Respiratory Respiratory: Reports system reviewed and no additional complaints, except as documented Gastrointestinal Gastrointestinal: Reports system reviewed and no additional complaints, except as documented Musculoskeletal Musculoskeletal: Reports system reviewed and no additional complaints, except as documented Integumentary/Breasts Skin/Breast: Reports system reviewed and no additional complaints, except as documented Hematologic/Lymphatic On Anticoagulants: No Patient History Medical History Menopausal syndrome DJD (degenerative joint disease), cervical Family history of clotting disorder Patellofemoral arthralgia of both knees Gout Osteopenia Cervical lymphadenitis Primary osteoarthritis Chronic, continuous use of opioids Diabetic neuropathy associated with diabetes mellitus due to underlying condition Mixed hyperlipidemia Essential hypertension Type 2 diabetes mellitus with diabetic polyneuropathy Asthma History of bipolar disorder Fibromyalgia Cubital tunnel syndrome Chronic back pain Cervical spine disease Carpal tunnel syndrome Wears glasses History of urinary incontinence History of asthma Hx of non-insulin dependent diabetes mellitus H/O: HTN (hypertension) Elevated lipids Surgical History Anesthesia History of cholecystectomy History of tubal ligation Status post hysterectomy Status post appendectomy (~1971) Status post hysterectomy S/P total knee replacement (~06/2015) Family History Father Cancer Alcoholic Mother Diabetes mellitus Sister Diabetes mellitus Hyperlipidemia Hypertension History of thyroidectomy Sister Diabetes mellitus Atrial fibrillation Hypertension Hyperlipidemia Wheelchair dependent Other Family history non-contributory Social History Smoking Status: Former smoker Smoking Status: Former smoker alcohol intake frequency: 0-2 drinks per day Substance Use Type: does not use Exam Initial Vital Signs Initial Vital Signs: Vital Signs Temperature 97.8 F 07/03/23 13:12 Pulse Rate 82 07/03/23 13:12 Respiratory Rate 16 07/03/23 13:12 Blood Pressure 237/98 H 07/03/23 13:12 Pulse Oximetry 97 07/03/23 13:12 Oxygen Delivery Method Room Air 07/03/23 13:12 [facility] Head: normal to inspection and normocephalic Resp Effort & Inspection: normal respiratory effort Skin General: no rashes or lesions noted Neuro Sensory Exam: no sensory deficits noted Extrem Other: Well-healed surgical scar in the anterior portion of the right knee consistent with her stated history of a total knee replacement. She does have a small effusion of the right knee. She has a 3 cm x 3 cm area of swelling on the anterior lateral aspect of the right knee. It was somewhat tender to palpation. It is soft and somewhat movable. She is another area that is little larger on the anteromedial aspect also distal to the knee. There was no overlying erythema. She has no tenderness along the deep veins. Scores Wells' Criteria for DVT Active Cancer (Treatment within 6 months): No Bedridden recently >3 days or major surgery within 4 weeks: No Calf Swelling >3cm compared to other leg: No Collateral (nonvericose) superficial veins present: No Entire leg swollen: No Localized tenderness along the deep vein system: No Pitting edema, confined to symtomatic leg: No Paralysis, paresis, or recent plaster immobilization of ext: No Previously documented DVT: No Alternative dx to DVT as likely or more likely: Yes Wells' criteria for DVT: -2 Course Orders Ordered: ED Orders 07/03/23 13:11 US periph venous low extrem rt Stat Vital Signs Vital signs: Vital Signs - 8 hr 07/03/23 13:12 Temperature 97.8 F Pulse Rate 82 Respiratory Rate 16 Blood Pressure 237/98 H Pulse Oximetry 97 Oxygen Delivery Method Room Air MDM - Extremity (Nontraumatic) MDM Narrative Medical decision making narrative: Patient has low risk for DVT per the Wells criteria. She has no tenderness along the deep veins of the right leg. She does have palpable areas of localized swelling to the anterior lateral and anteromedial portion of the leg. She has had these evaluated in the past and she states they have been drained in the past but now they are returning. There was no overlying skin changes concerning for cellulitis. I have low suspicion that these are abscesses. Advised patient that I do not see anything today that would need a emergent/urgent evaluation by Orthopedic surgery. There was no indication for any radiologic studies. Patient can follow-up with her orthopedic surgeon as scheduled. Discharge Plan Departure Patient Disposition: Home Clinical Impression: Swelling of joint, knee, right Activity Restrictions/Additional Instructions: I see nothing on your exam today that needs to be intervened on today. You can wait until you see Dr. Gallardo on the . You can use compression stockings and a knee wrap. Try to keep your leg elevated. Return to the emergency department for new symptoms. Prescriptions: No Action aspirin 81 mg Tablet,Delayed Release (Dr/Ec) 81 mg PO DAILY Qty: 0 (DME) Comfort EZ Pen [place] 32 gauge x 5/16 needle See Rx Instructions .Route Qty: 100 3RF Rx Instructions: As directed (DME) Glucocard Expression Strip See Rx Instructions .Route Qty: 450 6RF Rx Instructions: As directed;GLUCOCARD TEST EXPRESS USE DIRECTED 4-5 TIMES A DAY triamcinolone acetonide 0.5 % ointment 1 applic topical BID Qty: 15 2RF (DME) Diabetic Shoes See Rx Instructions .Route .MEDSUPPLY Qty: 1 0RF Rx Instructions: As directed hydroxyzine pamoate 25 mg capsule 25 mg PO TID Qty: 270 3RF (DME) pen needle, diabetic [Novofine 32] 32 gauge x 1/4 needle See Rx Instructions .ROUTE .MEDSUPPLY Qty: 50 3RF Rx Instructions: As directed;check blood glucose twice daily Novolog Mix 70-30FlexPen U-100 100 unit/mL (70-30) insulin pen See Rx Instructions .ROUTE .COMPLEX Qty: 45 3RF Dose Instruction: INJECT 70 UNITS IN THE MORNING & 50 UNITS IN THE EVENING BEFORE MEALS Rx Instructions: Dose change to INJECT 80 UNITS IN THE MORNING & 60 UNITS IN THE EVENING BEFORE MEALS. colchicine [Mitigare] 0.6 mg capsule 0.6 mg PO BID Qty: 180 1RF estradiol 1 mg tablet 1 mg PO DAILY Qty: 90 3RF albuterol sulfate 90 mcg/actuation HFA aerosol inhaler 1 - 2 puff Inhalation Q4-6H PRN (Reason: Shortness Of Breath) Qty: 8.5 12RF Jardiance 25 mg tablet 50 mg PO DAILY Qty: 180 3RF gabapentin 600 mg tablet 600 mg PO QNOON Qty: 90 1RF gabapentin 600 mg tablet 1,200 mg PO BID Qty: 180 3RF Rx Instructions: 2 tabs am and bedtime. 1 tablet at noon lisinopril 20 mg tablet 20 mg PO DAILY Qty: 90 3RF lidocaine 5 % adhesive patch,medicated 1 patch topical DAILY Qty: 15 1RF Rx Instructions: leave on most painful area for up to 12 hrs meloxicam 15 mg tablet 15 mg PO DAILY Qty: 90 2RF metformin 1,000 mg tablet extended release 24 hr 1,000 mg PO BID Qty: 180 3RF omeprazole 20 mg capsule,delayed release(DR/EC) 20 mg PO DAILY Qty: 90 2RF ondansetron 4 mg tablet,disintegrating 4 - 8 mg PO Q6H PRN (Reason: nausea and vomiting) Qty: 20 2RF simvastatin 20 mg tablet 20 mg PO DAILY Qty: 90 3RF oxybutynin chloride 5 mg tablet 5 mg PO BID-TID PRN (Reason: bladder spasms) Qty: 270 1RF trazodone 150 mg tablet 150 mg PO BEDTIME Qty: 90 1RF fluticasone propionate [Flonase Allergy Relief] 50 mcg/actuation spray,suspension 2 spray intranasal DAILY Qty: 16 3RF Rx Instructions: administer into each nostril hydrocodone-acetaminophen 5-325 mg tablet 1 tab PO Q6H PRN (Reason: pain) Qty: 120 0RF hydrocodone-acetaminophen 5-325 mg tablet 1 tab PO QID PRN (Reason: pain) Qty: 120 0RF Rx Instructions: EXEMPT (DME) lancets [TechLITE Lancets] 28 gauge misc See Rx Instructions .ROUTE .COMPLEX Qty: 500 3RF Dose Instruction: USE TO CHECK BLOOD SUGARS, TEST 4-5 TIMES PER DAY. Rx Instructions: USE TO CHECK BLOOD SUGARS, TEST 4-5 TIMES PER DAY. carisoprodol 350 mg tablet 350 mg PO BID Qty: 60 5RF cholecalciferol (vitamin D3) 25 mcg (1,000 unit) capsule 25 mcg PO DAILY hydrocodone-acetaminophen 5-325 mg tablet 1 tab PO Q6H PRN (Reason: pain) Qty: 120 0RF clonidine HCl 0.1 mg tablet 0.1 mg PO BID Qty: 180 3RF Referrals: Kendall Garnica MD [Primary Care Provider] - Stand Alone Forms: Patient Portal/API
--- NOTE | 2023-07-03 13:29 | PC.NURSE ---
seen and assessed by MD without RN involvment
== END 2023-07-03 13:29 | disposition home or self-care (01) ==
PROVIDERS: Emergency Provider Emergency Medicine; Family Provider Internal Medicine; PCP Internal Medicine
DX: M25.461 Effusion, right knee (principal)
CPT/HCPCS: 99281; 99282

== ENCOUNTER → 2023-09-24 11:49 | Outpatient (CLI) | payer MEDICARE, MEDICAID, SELFPAY ==
--- NOTE | 2023-09-24 | DI.MG.S_ITS ---
BILATERAL DIGITAL SCREENING MAMMOGRAM 3D/2D WITH CAD: 09/24/2023 CLINICAL: Routine screening. Comparison is made to exams dated: 07/21/2022 mammogram, 07/11/2021 mammogram, and 07/09/2020 mammogram - [facility]. There are scattered areas of fibroglandular density in both breasts (category b / 25%-50% glandular tissue). Current study was also evaluated with a Computer Aided Detection (CAD) system. There are benign calcifications in both breasts. No significant masses, calcifications, or other findings are seen in either breast. There has been no significant interval change. IMPRESSION: BENIGN There is no mammographic evidence of malignancy. A 1 year screening mammogram is recommended. Based on the Tyrer Cuzick model (a risk assessment model) the patient's lifetime risk is 5.2% and her 10 year risk is 2.3%. According to the ACR, ACS, and NCCN guidelines, an annual breast MRI exam along with mammogram is recommended if the patient's lifetime risk is 20% or greater. This exam was interpreted at Station ID: [id number]. NOTE: For mammograms, a report in lay terms will be sent to the patient. Approximately 15% of breast malignancies will not be visualized mammographically. In the management of a palpable breast mass, a negative mammogram must not discourage biopsy of a clinically suspicious lesion. Electronically Signed By: Jaswant kang/courtney:09/24/2023 14:45:57 letter sent: Normal Exam ACR BI-RADS Category 2: Benign Finding(s) 3342F
== END ==
PROVIDERS: Family Provider Internal Medicine; PCP Family Medicine; Referring Provider Internal Medicine; Visit Provider Internal Medicine
DX: Z12.31 Encounter for screening mammogram for malignant neoplasm of breast (principal); R92.323 Mammographic fibroglandular density, bilateral breasts
CPT/HCPCS: 77063; 77067

== ENCOUNTER 2023-10-03 17:00 | Emergency (ER) | payer MEDICARE, MEDICAID, SELFPAY ==
[2023-10-03 17:24] VITALS: BP 166/70; PULSE 78; RESP 18; TEMP 36.6; O2SAT 97; BMI 34.9
--- NOTE | 2023-10-03 17:30 | DI.RAD.S_ITS ---
PROCEDURE: XR KNEE RT 3V INDICATIONS: Fall on 10/26 with continued pain TECHNIQUE: 3 views of the knee were acquired. COMPARISON: [facility], [place], XR KNEE RT 3V, 10/19/2020, 17:21. [facility], [place], KNEE 1-2 VIEWS RIGHT, 06/25/2015, 16:49. FINDINGS: Bones: No fractures or dislocations. No suspicious bony lesions. Well-aligned, intact arthroplasty without hardware complication. Soft tissues: No joint effusion. No suspicious soft tissue calcifications. IMPRESSION: No acute bony abnormality or significant effusion. Dictated by: Fritz Orona M.D. on 10/03/2023 at 18:48 Approved by: Fritz Orona M.D. on 10/03/2023 at 18:48
--- NOTE | 2023-10-03 17:30 | DI.RAD.S_ITS ---
PROCEDURE: XR HIP W PEL IF DONE RT 2V INDICATIONS: Fall on 10/26 with continued pain TECHNIQUE: 2 views of the hip were acquired. [facility] 10[facility]. FINDINGS: Bones: Questionable nondisplaced fracture through the intratrochanteric region. Soft tissues: No suspicious soft tissue calcifications or masses. IMPRESSION: A possible nondisplaced fracture through the intratrochanteric region. Correlate with recent trauma and consider CT for confirmation. Dictated by: Fritz Orona M.D. on 10/03/2023 at 18:46 Approved by: Fritz Orona M.D. on 10/03/2023 at 18:47
--- NOTE | 2023-10-03 20:04 | DI.CT.S_ITS ---
PROCEDURE: CT PEL WO CON INDICATIONS: Possible R intertroch fx TECHNIQUE: Noncontrast 3 mm axial sections acquired through the bony pelvis, with coronal and sagittal reformatting. COMPARISON: [facility], [place], XR HIP W PEL IF DONE RT 2V, 10/03/2023, 17:43. FINDINGS: Image quality: Excellent. Bones: As identified on x-ray dated 10/03/2023, there is a nondisplaced fracture through the right greater trochanter. Fracture does not appear to extend to the lesser trochanter. Soft tissues: Nonobstructive gas pattern. IMPRESSION: Nondisplaced fracture through the right greater trochanter. Dictated by: Aliza Stanley M.D. on 10/03/2023 at 20:28 Approved by: Aliza Stanley M.D. on 10/03/2023 at 20:33
[2023-10-03 20:08] VITALS: PULSE 73; O2SAT 98
--- NOTE | 2023-10-03 20:08 | ED.FALL ---
HPI - Fall General Chief Complaint: Fall Stated Complaint: fell last week, right sided pain Time Seen by Provider: 10/03/23 20:04 Source: patient Mode of arrival: Ambulatory History of Present Illness HPI Narrative: 63yoF presents for right hip pain. Patient had a ground level fall 1 week ago and has had pain since then. She was able to ambulate with her walker, but due to persistent symptoms she decided to present for evaluation. Denies any other accident or injury Related Data Home Medications Medication Instructions Recorded Confirmed aspirin 81 mg tablet,delayed 81 mg PO DAILY ##0 08/27/11 07/28/23 release Previous Rx's Medication Instructions Recorded pen needle, diabetic 32 gauge x #100 ea 10/27/2110/20 (Comfort EZ Pen [place]) blood sugar diagnostic (Glucocard #450 ea 05/11/22 Expression strips) triamcinolone acetonide 0.5 % 1 applic topical BID #15 grams 05/27/22 topical ointment pen needle, diabetic 32 gauge x #50 ea 02/19/2306/10 (Novofine 32) colchicine 0.6 mg capsule 0.6 mg PO BID #180 caps 04/15/23 (Mitigare) hydrocodone 5 mg-acetaminophen 325 1 tab PO Q6H PRN pain #120 tabs 04/15/23 mg tablet estradiol 1 mg tablet 1 mg PO DAILY #90 tabs 04/26/23 albuterol sulfate 90 mcg/actuation 1 - 2 puff inhalation Q4-6H PRN 05/04/23 aerosol inhaler Shortness Of Breath #8.5 grams lidocaine 5 % topical patch 1 patch topical DAILY #15 ea 05/04/23 lisinopril 20 mg tablet 20 mg PO DAILY #90 tabs 05/04/23 metformin 1,000 mg tablet,extended 1,000 mg PO BID #180 tabs 05/04/23 release 24hr (osmotic) omeprazole 20 mg capsule,delayed 20 mg PO DAILY #90 caps 05/04/23 release ondansetron 4 mg disintegrating 4 - 8 mg (1 - 2 x 4 mg) PO Q6H PRN 05/04/23 tablet nausea and vomiting #20 tabs hydrocodone 5 mg-acetaminophen 325 1 tab PO QID PRN pain #120 tabs 05/05/23 mg tablet lancets 28 gauge (TechLITE Lancets) #500 ea 05/13/23 semaglutide 0.25 mg or 0.5 mg (2 0.25 mg (0.368 mL) SUBCUT QWEEK #3 07/08/23 mg/3 mL) subcutaneous pen injector mL (Ozempic) hydrocodone 5 mg-acetaminophen 325 1 tab PO Q6H PRN pain #120 tabs 07/28/23 mg tablet promethazine 25 mg tablet 25 mg PO Q6H PRN nausea and 07/28/23 vomiting #20 tabs Allergies Allergy/AdvReac Type Severity Reaction Status Date / Time aripiprazole [From Abiliy] AdvReac Intermediate Shakiness Verified 07/28/23 08:39 duloxetine AdvReac Mild back and Verified 07/28/23 08:39 leg pain Review of Systems Review of Systems Narrative: See HPI Patient History Medical History Menopausal syndrome DJD (degenerative joint disease), cervical Family history of clotting disorder Patellofemoral arthralgia of both knees Gout Osteopenia Cervical lymphadenitis Primary osteoarthritis Chronic, continuous use of opioids Diabetic neuropathy associated with diabetes mellitus due to underlying condition Mixed hyperlipidemia Essential hypertension Type 2 diabetes mellitus with diabetic polyneuropathy Asthma History of bipolar disorder Fibromyalgia Cubital tunnel syndrome Chronic back pain Cervical spine disease Carpal tunnel syndrome Wears glasses History of urinary incontinence History of asthma Hx of non-insulin dependent diabetes mellitus H/O: HTN (hypertension) Elevated lipids Surgical History Anesthesia History of cholecystectomy History of tubal ligation Status post hysterectomy Status post appendectomy (~1971) Status post hysterectomy S/P total knee replacement (~06/2015) Family History Father Cancer Alcoholic Mother Diabetes mellitus Sister Diabetes mellitus Hyperlipidemia Hypertension History of thyroidectomy Sister Diabetes mellitus Atrial fibrillation Hypertension Hyperlipidemia Wheelchair dependent Other Family history non-contributory Social History Smoking Status: Former smoker Smoking Status: Former smoker alcohol intake frequency: 0-2 drinks per day Substance Use Type: does not use Exam Initial Vital Signs Initial Vital Signs: Vital Signs Temperature 97.8 F 10/03/23 17:24 Pulse Rate 78 10/03/23 17:24 Respiratory Rate 18 10/03/23 17:24 Blood Pressure 166/70 H 10/03/23 17:24 Pulse Oximetry 97 10/03/23 17:24 Oxygen Delivery Method Room Air 10/03/23 17:24 Const: Awake, alert, no acute distress, nontoxic appearing MSK: No deformity, ambulatory with walker, tenderness generalized over right hip Skin: Warm, Dry, intact, no rashes Neuro: AO x3, CN II-XII grossly intact, moves all extremities Course Orders Ordered: ED Orders 10/03/23 20:04 CT pelvis wo con Stat Vital Signs Vital signs: Vital Signs - 8 hr 10/03/23 20:08 10/03/23 20:09 10/03/23 20:09 Pulse Rate 73 Blood Pressure 189/81 H Pulse Oximetry 98 98 10/03/23 20:18 10/03/23 20:18 10/03/23 20:30 Pulse Rate 64 Blood Pressure 144/65 H 147/65 H Pulse Oximetry 96 10/03/23 20:30 10/03/23 21:00 10/03/23 21:00 Pulse Rate 63 68 Blood Pressure 164/67 H Pulse Oximetry 97 97 MDM - Fall Differential Diagnosis Differential diagnosis: Likely syncope, dislocation of shoulder region and fracture of wrist Imaging Data CT scan - abdomen/pelvis: Radiologist's Impression: PROCEDURE: CT PEL WO CON INDICATIONS: Possible R intertroch fx TECHNIQUE: Noncontrast 3 mm axial sections acquired through the bony pelvis, with coronal and sagittal reformatting. COMPARISON: [facility], CR, XR HIP W PEL IF DONE RT 2V, 10/03/2023, 17:43. FINDINGS: Image quality: Excellent. Bones: As identified on x-ray dated 10/03/2023, there is a nondisplaced fracture through the right greater trochanter. Fracture does not appear to extend to the lesser trochanter. Soft tissues: Nonobstructive gas pattern. IMPRESSION: Nondisplaced fracture through the right greater trochanter. Dictated by: Aliza Stanley M.D. on 10/03/2023 at 20:28 Approved by: Aliza Stanley M.D. on 10/03/2023 at 20:33 [facility] Narrative Medical decision making narrative: Well-appearing patient with 1 week of persistent pain on the right-hand side. Able to walk with a walker, already on chronic opiates for her degenerative disease. CT shows nondisplaced fracture through the right greater trochanter. Images reviewed by Orthopedic surgeon Dr. Sharpe. Unable to get MRI at this time in our department, he will see her tomorrow in his clinic and he will order an outpatient MRI to assess for any other occult injury, however it is unlikely since this is 1 week post injury and patient has been walking on the limb with relatively little difficulty. Discharge Plan Departure Patient Disposition: Home Clinical Impression: Closed trochanteric fracture of femur Instructions: DI for Avulsion Fracture Activity Restrictions/Additional Instructions: You appear to have a chip fracture in your right hip. It was very important that you follow up with Orthopedic surgery tomorrow at their clinic in [place]. Continue to take your home pain medications as prescribed Prescriptions: No Action aspirin 81 mg Tablet,Delayed Release (Dr/Ec) 81 mg PO DAILY Qty: 0 (DME) Comfort EZ Pen [place] 32 gauge x 5/16 needle See Rx Instructions .Route Qty: 100 3RF Rx Instructions: As directed (DME) Glucocard Expression Strip See Rx Instructions .Route Qty: 450 6RF Rx Instructions: As directed;GLUCOCARD TEST EXPRESS USE DIRECTED 4-5 TIMES A DAY triamcinolone acetonide 0.5 % ointment 1 applic topical BID Qty: 15 2RF (DME) pen needle, diabetic [Novofine 32] 32 gauge x 1/4 needle See Rx Instructions .ROUTE .MEDSUPPLY Qty: 50 3RF Rx Instructions: As directed;check blood glucose twice daily colchicine [Mitigare] 0.6 mg capsule 0.6 mg PO BID Qty: 180 1RF estradiol 1 mg tablet 1 mg PO DAILY Qty: 90 3RF albuterol sulfate 90 mcg/actuation HFA aerosol inhaler 1 - 2 puff Inhalation Q4-6H PRN (Reason: Shortness Of Breath) Qty: 8.5 12RF lisinopril 20 mg tablet 20 mg PO DAILY Qty: 90 3RF lidocaine 5 % adhesive patch,medicated 1 patch topical DAILY Qty: 15 1RF Rx Instructions: leave on most painful area for up to 12 hrs metformin 1,000 mg tablet extended release 24 hr 1,000 mg PO BID Qty: 180 3RF omeprazole 20 mg capsule,delayed release(DR/EC) 20 mg PO DAILY Qty: 90 2RF ondansetron 4 mg tablet,disintegrating 4 - 8 mg PO Q6H PRN (Reason: nausea and vomiting) Qty: 20 2RF hydrocodone-acetaminophen 5-325 mg tablet 1 tab PO QID PRN (Reason: pain) Qty: 120 0RF Rx Instructions: EXEMPT (DME) lancets [TechLITE Lancets] 28 gauge misc See Rx Instructions .ROUTE .COMPLEX Qty: 500 3RF Dose Instruction: USE TO CHECK BLOOD SUGARS, TEST 4-5 TIMES PER DAY. Rx Instructions: USE TO CHECK BLOOD SUGARS, TEST 4-5 TIMES PER DAY. hydrocodone-acetaminophen 5-325 mg tablet 1 tab PO Q6H PRN (Reason: pain) Qty: 120 0RF Ozempic 0.25 mg or 0.5 mg (2 mg/3 mL) pen injector 0.25 mg SUBCUT QWEEK Qty: 3 1RF Rx Instructions: Use 0.25mg sc q weekly x 4 weeks then increase to 0.5 mg sc q weekly for 4 weeks promethazine 25 mg tablet 25 mg PO Q6H PRN (Reason: nausea and vomiting) Qty: 20 1RF hydrocodone-acetaminophen 5-325 mg tablet 1 tab PO Q6H PRN (Reason: pain) Qty: 120 0RF Referrals: Regina Olivares MD [Primary Care Provider] - Lance Sharpe MD [Physician] - Stand Alone Forms: Patient Portal/API
[2023-10-03 20:09] VITALS: BP 189/81; O2SAT 98
[2023-10-03 20:18] VITALS: BP 144/65; PULSE 64; O2SAT 96
[2023-10-03 20:30] VITALS: BP 147/65; PULSE 63; O2SAT 97
[2023-10-03 21:00] VITALS: BP 164/67; PULSE 68; O2SAT 97
== END 2023-10-03 21:18 | disposition home or self-care (01) ==
PROVIDERS: Emergency Provider Emergency Medicine; Family Provider Internal Medicine; PCP Family Medicine
DX: S72.114A Nondisplaced fracture of greater trochanter of right femur, initial encounter for closed fracture (principal); W18.30XA Fall on same level, unspecified, initial encounter
CPT/HCPCS: 72192; 73502; 73562; 99281; 99284

== ENCOUNTER → 2023-10-05 15:20 | Outpatient (CLI) | payer MEDICARE, MEDICAID, SELFPAY ==
--- NOTE | 2023-10-05 15:33 | DI.MRI.S_ITS ---
PROCEDURE: MR HIP RT WO CON INDICATIONS: r/o intertroch fx TECHNIQUE: Noncontrast coronal T1 spin echo and STIR through the bony pelvis. Coronal and axial T2 fast spin echo with fat saturation, sagittal T1 spin echo, and oblique axial T2 fast spin echo with fat saturation through the hip. COMPARISON: [facility], CT, CT PEL WO CON, 10/03/2023, 20:09. FINDINGS: Image quality: Excellent. Bones and joints: There is marrow edema involving greater trochanter with a subtle linear hypointense signal through base of greater trochanter consistent with previous CT finding of a nondisplaced fracture in this area. No femoral neck fracture. No other area of abnormal marrow signal. Moderate bilateral hip joint osteoarthritic changes are seen. No avascular necrosis of the femoral heads. Degenerative disc disease in visualized lower lumbar spine is seen. Tendons and ligaments: Low-grade partial-thickness tear involving distal right gluteus medius and minimus tendons at their insertions on greater trochanter extending to musculotendinous junction. The nearby proximal iliotibial band also appears intact. The iliopsoas tendon appears intact, without adjacent bursal fluid collections or evidence for impingement syndrome. The origin of the hamstring tendon is intact at the ischial tuberosity. Labrum and cartilage: The acetabular labrum appears intact in the absence of intra-articular contrast. Thinning of articulating cartilage over right femoral head is seen. The alpha angle of the femur is within normal limits at less than 55 degrees. Soft tissues: There is edema within lateral portion of adductor geovanna and obturator externus muscles at the level of greater trochanter/femoral neck. Rest of the visualized muscles demonstrate normal bulk and internal signal. Quadratus femoris muscle demonstrates no internal edema to suggest ischiofemoral impingement. The proximal sciatic neurovascular bundle appears normal adjacent to the hamstring tendons. No free pelvic fluid. Bladder wall thickness is normal. Genitourinary structures and bowel loops appear normal where visualized. IMPRESSION: 1. Nondisplaced fracture through base of greater trochanter with extensive marrow edema surrounding the fracture line. No other fracture or dislocation. Bilateral hip joint osteoarthritis. No evidence of avascular necrosis. 2. Low-grade partial-thickness tear involving distal right gluteus medius and minimus tendons extending to musculotendinous junction. Low-grade partial-thickness tear involving lateral portion of right obturator externus muscle and right adductor geovanna muscle. 3. No gross right hip labral tear. No pelvic free fluid. Dictated by: Tha Ibarra M.D. on 10/05/2023 at 16:57 Approved by: Tha Ibarra M.D. on 10/05/2023 at 17:01
== END ==
PROVIDERS: Family Provider Internal Medicine; PCP Family Medicine; Referring Provider Physician Assistant Surgical; Visit Provider Physician Assistant Surgical
DX: S72.114A Nondisplaced fracture of greater trochanter of right femur, initial encounter for closed fracture (principal); S76.011A Strain of muscle, fascia and tendon of right hip, initial encounter; S76.211A Strain of adductor muscle, fascia and tendon of right thigh, initial encounter; M16.0 Bilateral primary osteoarthritis of hip; M51.36 Other intervertebral disc degeneration, lumbar region; X58.XXXA Exposure to other specified factors, initial encounter
CPT/HCPCS: 73721

== ENCOUNTER 2023-11-03 14:46 | Outpatient (RCR) | payer MEDICARE, MEDICAID, SELFPAY ==
--- NOTE | 2023-11-03 17:25 | PT.OIE ---
Current Diagnoses Pain in right ankle and joints of right foot (11/03/23) Past Medical History (Last Reviewed 10/04/23 @ 03:13 by Carol Scruggs MD) Asthma Carpal tunnel syndrome Cervical lymphadenitis Cervical spine disease Chronic back pain Chronic, continuous use of opioids Cubital tunnel syndrome Diabetic neuropathy associated with diabetes mellitus due to underlying condition DJD (degenerative joint disease), cervical Elevated lipids Essential hypertension Family history of clotting disorder Fibromyalgia Gout H/O: HTN (hypertension) History of asthma History of bipolar disorder History of urinary incontinence Hx of non-insulin dependent diabetes mellitus Menopausal syndrome Mixed hyperlipidemia Osteopenia Patellofemoral arthralgia of both knees Primary osteoarthritis Type 2 diabetes mellitus with diabetic polyneuropathy Wears glasses Past Surgical History (Last Reviewed 10/04/23 @ 03:13 by Carol Scruggs MD) Anesthesia History of cholecystectomy History of tubal ligation S/P total knee replacement (~06/2015) Status post appendectomy (~1971) Status post hysterectomy Status post hysterectomy Visit Care Team Role Provider Type Regina Olivares MD Primary Care Provider Non-Staff Specialty: Medical Address: [address] [place] [address], [id number] Email: Kendall Garnica MD Family Provider Physician Specialty: Internal Medicine Address: [address] [place] [address], [facility] Email: [email or web address] Richard Brown PA-C Attending Provider [employer] Referring Provider Specialty: Orthopedics Orthopedic Surgery Address: [address] [place] [address], [facility] Email: [email or web address] Physical Therapy Initial Evaluation PT-OP-A Visit Information Start: 11/03/23 16:57 Freq: Status: Active Protocol: Document 11/03/23 15:15 DCW (Rec: 11/03/23 17:24 DCW [id number]) Out-Patient Physical Therapy Visit Information Visit Information Visit Type Initial Evaluation Visit Start Time 15:15 Visit Stop Time 16:00 Visit Number 1 Number of SOUND EDITOR Visits 0 Evaluation Information Evaluation Date 11/03/23 PT-OP-B Current Condition Start: 11/03/23 16:57 Freq: Status: Active Protocol: Document 11/03/23 15:15 DCW (Rec: 11/03/23 17:24 DCW [id number]) Current Condition History of Current Condition Onset Date 4-6 month history Current Complaints bilateral foot/ankle pain/ tingling History of Current Condition Pt is a 63 year old female presenting with a vague history or bilateral foot pain and tingling. Pt notes that she experiences some tingling, mainly along the plantar surface of her feet in the evening. Typically no soreness or pain when walking. Pt does note she walks a lot throughout the day, which has helped with weight loss, as well as her prior knee and hip pain. Pt is a tangential historian, is very concerned regarding phone calls she has been getting recently, appears to have been called about changing her insurances, but pt notes they seem to know too much about her appointments and health care, and is concerned about the privacy of her and her son. Did have a fall ~1 month ago, MRI revealed a nondisplaced fracture through base of R greater trochanter. Pt notes it is no longer bothering her, is not concerned about it. Notes she does have a psych appointment upcoming in [facility]. PT-OP-C Subjective Start: 11/03/23 16:57 Freq: Status: Active Protocol: Document 11/03/23 15:15 DCW (Rec: 11/03/23 17:24 DCW [id number]) OP-PT Subjective Patient Comments Patient Comments Mentally, I'm not doing well. Patient Questionnaires Lower Extremity Functional Scale LEFS Score 76/80 = 95% PT-OP-F Manual Assessment Start: 11/03/23 16:57 Freq: Status: Active Protocol: Document 11/03/23 15:15 DCW (Rec: 11/03/23 17:24 DCW [id number]) Manual Assessments Soft Tissue Assessment Soft Tissue Mobility Assessment Mild edema around right knee, soft tissue around bilateral ankles WNL Joint Mobility Assessment Joint Mobility Assessment Appropriate ankle mobility PT-OP-H Neuro Start: 11/03/23 16:57 Freq: Status: Active Protocol: Document 11/03/23 15:15 DCW (Rec: 11/03/23 17:24 DCW [id number]) Sensation Evaluation Gross Sensation Gross Sensation Left LE Impaired,Right LE Impaired Sensation Description Tingling,Coldness PT-OP-K Range of Motion Start: 11/03/23 16:57 Freq: Status: Active Protocol: Document 11/03/23 15:15 DCW (Rec: 11/03/23 17:24 DCW [id number]) Ankle and Foot Goniometric Range of Motion Ankle and Foot Right Active Ankle/Foot ROM WFL Yes Testing Position Sitting Dorsiflexion with Knee Extended 5 Plantarflexion 40 Inversion 30 Eversion 11 PT-OP-M Strength Start: 11/03/23 16:57 Freq: Status: Active Protocol: Document 11/03/23 15:15 DCW (Rec: 11/03/23 17:24 DCW [id number]) Ankle/Foot Strength Ankle and Foot Manual Muscle Testing Right Dorsiflexion (L4) 4+ Good+ Plantarflexion (S1) 4+ Good+ Inversion 4+ Good+ Eversion (S1) 4+ Good+ PT-OP-Q Treatments Start: 11/03/23 16:57 Freq: Status: Active Protocol: Document 11/03/23 15:15 DCW (Rec: 11/03/23 17:24 DCW [id number]) Therapeutic Exercises Sitting Exercises Intrinsic Sitting Exercise Name Intrinsic toe gripping Side right Piriformis Sitting Exercise Name Piriformis stretch Side bilateral PT-OP-T Assessment and Plan Start: 11/03/23 16:57 Freq: Status: Active Protocol: Document 11/03/23 15:15 DCW (Rec: 11/03/23 17:24 DCW [id number]) Physical Therapy Assessment Evaluation Complexity Number of Personal Factors/Comorbidities 0 Assessment Summary Assessment Pt presents with fairly non- specific complaints of bilateral foot tingling at night. Pt not limited with her frequent ambulation, demonstrates good range of motion and strength in her ankles. Did review some stretching and intrinsic foot strengthening pt could work on independently to help decrease symptoms and improve sensory input. At this time, no indication of benefit from further out-patient rehabilitation. Pt will be discharged from skilled PT. Pt understands and agrees with this plan Physical Therapy Plan Frequency and Duration Frequency of Treatment 1x/Week Plan of Care Start Date 11/03/23 Plan of Care End Date 11/04/23 Discharge Physical Therapy Discharge Reasons No Longer Attending PT Next Visit Focus/Plan Next Note Type Discharge Summary
--- NOTE | 2023-11-03 17:25 | PT.OPPOC ---
Physical, Occupational & Speech Therapy At [facility] Current Diagnoses Pain in right ankle and joints of right foot (11/03/23) Visit Care Team Role Provider Type Regina Olivares MD Primary Care Provider Non-Staff Specialty: Medical Address: [address] [place] [address], [id number] Email: Kendall Garnica MD Family Provider Physician Specialty: Internal Medicine Address: [address] [place] [address], [facility] Email: [email or web address] Richard Brown PA-C Attending Provider [employer] Referring Provider Specialty: Orthopedics Orthopedic Surgery Address: [address] [place] [address], [facility] Email: [email or web address] Plan Of Care PT-OP-T Assessment and Plan Start: 11/03/23 16:57 Freq: Status: Active Protocol: Document 11/03/23 15:15 DCW (Rec: 11/03/23 17:24 DCW [id number]) Physical Therapy Assessment Evaluation Complexity Number of Personal Factors/Comorbidities 0 Assessment Summary Assessment Pt presents with fairly non- specific complaints of bilateral foot tingling at night. Pt not limited with her frequent ambulation, demonstrates good range of motion and strength in her ankles. Did review some stretching and intrinsic foot strengthening pt could work on independently to help decrease symptoms and improve sensory input. At this time, no indication of benefit from further out-patient rehabilitation. Pt will be discharged from skilled PT. Pt understands and agrees with this plan Physical Therapy Plan Frequency and Duration Frequency of Treatment 1x/Week Plan of Care Start Date 11/03/23 Plan of Care End Date 11/04/23 Discharge Physical Therapy Discharge Reasons No Longer Attending PT Next Visit Focus/Plan Next Note Type Discharge Summary Plan of Care Dates Plan of Care Start Date 11/03/23 Plan of Care End Date 11/04/23 Electronically Signed by: Zurdo Montalvo, PT 11/03/23 [id number] If you are in agreement with this Plan of Care, please return a signed and dated copy. I have reviewed this Plan of Care and certify that the skilled therapy services above are required to meet the patient?s needs. Physician Signature Date Printed Name and Credentials Clinical Instructor Signature Printed Name and Credentials
== END 2023-11-04 15:23 | disposition home or self-care (01) ==
LOC: PHYS 14:46
PROVIDERS: Family Provider Internal Medicine; PCP Family Medicine; Referring Provider Physician Assistant; Visit Provider Physician Assistant
DX: M25.571 Pain in right ankle and joints of right foot (principal)
CPT/HCPCS: 97110; 97161

== ENCOUNTER → 2024-09-25 09:54 | Outpatient (CLI) | payer MEDICARE, MEDICAID, SELFPAY ==
--- NOTE | 2024-09-25 09:56 | DI.MG.S_ITS ---
MM screening mammo BI: 09/25/2024. BI-RADS: 2 CLINICAL: 64-year old female for bilateral screening mammogram. Tyrer-Cuzick lifetime risk of 1.8%. No personal or first-degree family history of breast cancer. PRIOR EXAMS 09/24/2023, 07/21/2022, 07/11/2021, 07/09/2020, 04/04/2019, 03/16/2018. MAMMOGRAPHY TECHNIQUE: 2D and 3D (tomosynthesis) digital mammographic views obtained, with additional images as needed for full coverage. Current study was also evaluated with a Computer Aided Detection (CAD) system. DENSITY A. The breasts are almost entirely fatty. MAMMOGRAPHY FINDINGS Bilateral: Benign-appearing calcifications noted. There are no suspicious masses, calcifications, or other findings in the breast. No significant change from comparison. IMPRESSION: * No evidence of malignancy with benign findings. RECOMMENDATIONS Bilateral * Annual screening mammography. OVERALL ASSESSMENT CATEGORY BI-RADS-2: Benign. The [employer] [place] [employer] recommends annual screening mammography beginning at age 40 for women with average risk of breast cancer. ELECTRONICALLY SIGNED: Ariadne Bishop M.D. on 09/26/2024 at 05:01:08 PM PT Interpreting Station ID: [id number]
== END ==
LOC: MAMMO 09:55
PROVIDERS: Family Provider Internal Medicine; PCP Physician Assistant; Referring Provider Physician Assistant; Visit Provider Physician Assistant
DX: Z12.31 Encounter for screening mammogram for malignant neoplasm of breast (principal); R92.313 Mammographic fatty tissue density, bilateral breasts
CPT/HCPCS: 77063; 77067

== ENCOUNTER → 2025-02-22 10:19 | Outpatient (CLI) | payer MEDICARE, MEDICAID, SELFPAY ==
--- NOTE | 2025-02-22 10:21 | DI.RAD.S_ITS ---
-PROCEDURE: XR DEXA AXIAL SKELETON INDICATIONS: OSTEOPOROSIS COMPARISON: [facility], CR, XR DEXA AXIAL SKELETON, 10/14/2021, 14:27. FINDINGS: Lumbar Spine: Bone mineral density 1.385 (previously 1.249) g/cm2, T score 3.1 (previously 1.8). Left Femoral Neck: Bone mineral density 0.695 (previously 0.703) g/cm2, T score -1.4 (previously -1.3). Left Hip: Bone mineral density 0.874 (previously 0.882) g/cm2, T score -0.6 (previously -0.5). Fracture Risk Calculation (when applicable): 10-year fracture risk of a major osteoporotic fracture 13 percent and of a hip fracture 2.0 percent. (T score greater or equal to -1.0 to: NORMAL) (T score from -1.1 to -2.4: OSTEOPENIA) (T score less than or equal to -2.5: OSTEOPOROSIS) IMPRESSION: Osteopenia--- recommend repeat DEXA in 2-3 years for reassessment. Follow-up guidelines as follows: Osteoporosis: Consider a repeat DEXA and Vertebral Fracture Assessment (VFA) exam in 2 years or sooner if medically necessary, to reassess this patient's status. Osteopenia: Consider a repeat DEXA in 2-3 years to reassess this patient's status, or if there is a new clinical indication. Normal: Consider a repeat DEXA in 5 years or sooner, or if there is a new clinical indication. All treatment decisions require clinical judgment and consideration of individual patient factors, including patient preferences, comorbidities, previous drug use, risk factors not captured in the FRAX model (e.g., frailty, falls, vitamin D deficiency, increased bone turnover, interval significant decline in bone density ) and possible under- or over-estimation of fracture risk by FRAX. In addition, the NOF Guide recommends that FDA-approved medical therapies be considered in postmenopausal women and men age >= 50 years with a: * Hip or vertebral (clinical or morphometric) fracture * T-score of <=-2.5 at the spine or hip * Ten-year fracture probability by FRAX of >= 3% for hip fracture or >=20% for major osteoporotic fracture. Dictated by: Cy Tan M.D. on 02/22/2025 at 19:58 Approved by: Cy Tan M.D. on 02/22/2025 at 20:02
== END ==
LOC: RAD 10:20
PROVIDERS: Family Provider Internal Medicine; PCP Physician Assistant; Referring Provider Physician Assistant; Visit Provider Physician Assistant
DX: M85.852 Other specified disorders of bone density and structure, left thigh (principal); Z78.0 Asymptomatic menopausal state
CPT/HCPCS: 77080

== ENCOUNTER 2025-03-12 08:44 | Day surgery (SDC) | payer MEDICARE, MEDICAID, SELFPAY ==
[2025-03-12 09:45] VITALS: BP 184/91; PULSE 81; RESP 16; TEMP 36.4; O2SAT 97
[2025-03-12] MEDS: LACTATED RINGERS 1,000 ML 120 ML IV (09:55)
--- NOTE | 2025-03-12 10:29 | PM.HP.IH.1 ---
History of Present Illness History of Present Illness Date Patient Seen: 03/12/25 Chief complaint: Screening Colonoscopy Narrative: First screening colonoscopy [facility] Medical History Menopausal syndrome DJD (degenerative joint disease), cervical Family history of clotting disorder Patellofemoral arthralgia of both knees Gout Osteopenia Cervical lymphadenitis Primary osteoarthritis Chronic, continuous use of opioids Diabetic neuropathy associated with diabetes mellitus due to underlying condition Mixed hyperlipidemia Essential hypertension Type 2 diabetes mellitus with diabetic polyneuropathy Asthma History of bipolar disorder Fibromyalgia Cubital tunnel syndrome Chronic back pain Cervical spine disease Carpal tunnel syndrome Wears glasses History of urinary incontinence History of asthma Hx of non-insulin dependent diabetes mellitus H/O: HTN (hypertension) Elevated lipids Surgical History Anesthesia History of cholecystectomy History of tubal ligation Status post hysterectomy Status post appendectomy (~1971) Status post hysterectomy S/P total knee replacement (~06/2015) Family History Father Cancer Alcoholic Mother Diabetes mellitus Sister Diabetes mellitus Hyperlipidemia Hypertension History of thyroidectomy Sister Diabetes mellitus Atrial fibrillation Hypertension Hyperlipidemia Wheelchair dependent Other Family history non-contributory Social History Smoking Status: Former smoker alcohol intake: never Meds Home Medications and Allergies Home Medications ?Medication ?Instructions ?Recorded ?Confirmed ?Type aspirin 81 mg tablet,delayed 81 mg PO DAILY ##0 08/27/11 07/28/23 History release pen needle, diabetic 32 gauge x #100 ea 10/27/21 07/28/23 Rx 5/16 (Comfort EZ Pen Merkel) blood sugar diagnostic (Glucocard #450 ea 05/11/22 07/28/23 Rx Expression strips) triamcinolone acetonide 0.5 % 1 applic topical BID #15 grams 05/27/22 07/28/23 Rx topical ointment pen needle, diabetic 32 gauge x #50 ea 02/19/23 07/28/23 Rx 1/4 (Novofine 32) hydrocodone 5 mg-acetaminophen 325 1 tab PO Q6H PRN pain #120 tabs 04/15/23 07/28/23 Rx mg tablet estradiol 1 mg tablet 1 mg PO DAILY #90 tabs 04/26/23 03/12/25 Rx albuterol sulfate 90 mcg/actuation 1 - 2 puff inhalation Q4-6H PRN 05/04/23 07/28/23 Rx aerosol inhaler Shortness Of Breath #8.5 grams lidocaine 5 % topical patch 1 patch topical DAILY #15 ea 05/04/23 07/28/23 Rx lisinopril 20 mg tablet 20 mg PO DAILY #90 tabs 05/04/23 03/12/25 Rx metformin 1,000 mg tablet,extended 1,000 mg PO BID #180 tabs 05/04/23 03/12/25 Rx release 24hr (osmotic) omeprazole 20 mg capsule,delayed 20 mg PO DAILY #90 caps 05/04/23 03/12/25 Rx release ondansetron 4 mg disintegrating 4 - 8 mg (1 - 2 x 4 mg) PO Q6H PRN 05/04/23 07/28/23 Rx tablet nausea and vomiting #20 tabs hydrocodone 5 mg-acetaminophen 325 1 tab PO QID PRN pain #120 tabs 05/05/23 03/12/25 Rx mg tablet lancets 28 gauge (TechLITE Lancets) #500 ea 05/13/23 07/28/23 Rx semaglutide 0.25 mg or 0.5 mg (2 0.25 mg (0.368 mL) SUBCUT QWEEK #3 07/08/23 03/12/25 Rx mg/3 mL) subcutaneous pen injector mL (Ozempic) hydrocodone 5 mg-acetaminophen 325 1 tab PO Q6H PRN pain #120 tabs 07/28/23 07/28/23 Rx mg tablet promethazine 25 mg tablet 25 mg PO Q6H PRN nausea and 07/28/23 07/28/23 Rx vomiting #20 tabs colchicine 0.6 mg capsule 0.6 mg PO BID #180 caps 10/15/23 Rx (Mitigare) sodium,potassium,mag sulfates 17.5 See Rx Instructions PO .COMPLEX 02/19/25 Rx gram-3.13 gram-1.6 gram oral soln #354 mL (Suprep Bowel Prep Kit) empagliflozin 25 mg tablet 25 mg PO DAILY 03/12/25 03/12/25 History (Jardiance) tirzepatide 2.5 mg/0.5 mL mg SUBCUT 03/12/25 History subcutaneous pen injector (Lesly) Allergies Allergy/AdvReac Type Severity Reaction Status Date / Time aripiprazole (From [facility]) AdvReac Intermediate Shakiness Verified 07/28/23 08:39 duloxetine AdvReac Mild back and Verified 07/28/23 08:39 leg pain Exam Vital Signs (past 8 hours): - 03/12/25 09:45 Temperature 97.6 F Pulse Rate 81 Respiratory Rate 16 Blood Pressure 184/91 H Pulse Oximetry 97 Oxygen Delivery Method Room Air Oxygen Delivery Method Room Air Narrative Exam Narrative: Oropharynx free of lesions Chest clear to auscultation percussion Cardiac exam reveals no S3 or murmur Objective Labs Labs: Laboratory Results - last 24 hr 03/12/25 09:40 POC Whole Bld Glucose 158 H Assessment & Plan Assessment & Plan narrative: For screening colonoscopy risks, benefits, and alternatives have been explained. Time-Based Coding :: [TOTAL MINUTES] spent with patient and on the chart (including review of chart, obtaining history, exam, reviewing outside data, placing orders, documenting exam and treatment plan, and counseling patient) on [DATE]. PROFEE [employer] Document charge(s): No
--- NOTE | 2025-03-12 10:31 | PM.OP.COLON ---
Operative Date/Time/Diagnoses Date of procedure: 03/12/25 Time of procedure: 10:58 Pre-op diagnosis: See indication and findings Post-op diagnosis: same Procedure & Clinicians Study performed: Colonoscopy Same procedure(s) as scheduled: Yes Indications: Screening 1st colonoscopy Surgeon: Timo Vides Anesthesia Type: Other Procedure Notes Procedure in detail: After informed consent was obtained the patient was placed in left lateral decubitus position. The video colonoscope was introduced the rectum slowly advanced cecum. Preparation was good. On slow withdrawal mucosa was carefully examined. The scope was removed. Patient tolerated procedure well. Blood loss none Complications none Sedation mac Findings 1. Normal colonoscopy to cecum Should have follow-up colonoscopy in 10 years
[2025-03-12 11:00] VITALS: BP 145/66; PULSE 84; RESP 14; TEMP 36.4; O2SAT 97
[2025-03-12 11:05] VITALS: BP 144/68; PULSE 89; RESP 27; O2SAT 97
[2025-03-12 11:10] VITALS: BP 173/79; PULSE 75; RESP 19; TEMP 36.4; O2SAT 96
== END 2025-03-12 11:30 | disposition home or self-care (01) ==
PROVIDERS: Family Provider Internal Medicine; PCP Physician Assistant; Referring Provider Physician Assistant; Visit Provider Internal Medicine Gastroenterology
PROC: 0DJD8ZZ Inspection of Lower Intestinal Tract, Via Natural or Artificial Opening Endoscopic (ICD-10-PCS; CPT 45378; principal; 2025-03-12 10:30)
DX: Z12.11 Encounter for screening for malignant neoplasm of colon (principal); Z87.891 Personal history of nicotine dependence
CPT/HCPCS: G0121; 82962; J2704; J7120

== ENCOUNTER → 2025-03-23 13:17 | Outpatient (CLI) | payer MEDICARE, MEDICAID, SELFPAY ==
--- NOTE | 2025-04-18 09:58 | DIAB.MNT ---
Initial Diabetes Medical Nutrition Therapy Assessment Name: Aurora Tomas Date: 03/23/25 Time: 2-3p Dx: Type II Diabetes Provider: Timbo Cote Learning Style: Listening, Reading Aurora presents for initial Dm visit. Diagnosed 40 years ago. Recent HgA1c of 8.3%. Started Mounjaro 2.5mg and plans to titrate to 5mg on 03/29. Also on Metformin and Jardiance. states PCP rec 30-40g protein per meal and D3/Calcium supplement. Has questions regarding these recs. Stoped eating meat in November 2024. Gout was impacting her walking. Takes metamucil fiber supplemetn and miralax. has Bm daily without issue. PCP note indicates to take fiber supplement OR miralax. Wakes to urinate 3x per night. Diet Recall: 6am: apple sauce with emds 9am: banana 11am HB egg 12p: salad 3p: snack cheese or apple or berries 5p: half c rice with half c of greens OR taco salad with cheese, beans, chips and veg water 6 x 16.9oz tea x 3c sf gatorade Anthropometrics: Ht: 65 Wt:232# 02/2025 Weight history: Physical Activity: Daily walks with son abotu 1 hour Self-Monitoring Blood Glucose: checks 3-4x per day. FBG running 120-150mg/dl, mid day running 100-150mg/dl and evening running 114-140mg/dl Date Pre Post Pre Post Pre Post HS Diabetes Medications: 0.25-5mg Mounjaro 1000mg Metformin BID 25mg Jardiance Pertinent Labs: hgA1c: 8.3% 02/2025 Past Medical History: (Last Reviewed 10/04/23 @ 03:13 by Carol Scruggs MD) Asthma Carpal tunnel syndrome Cervical lymphadenitis Cervical spine disease Chronic back pain Chronic, continuous use of opioids Cubital tunnel syndrome Diabetic neuropathy associated with diabetes mellitus due to underlying condition DJD (degenerative joint disease), cervical Elevated lipids Essential hypertension Family history of clotting disorder Fibromyalgia Gout H/O: HTN (hypertension) History of asthma History of bipolar disorder History of urinary incontinence Hx of non-insulin dependent diabetes mellitus Menopausal syndrome Mixed hyperlipidemia Osteopenia Patellofemoral arthralgia of both knees Primary osteoarthritis Type 2 diabetes mellitus with diabetic polyneuropathy Wears glasses Nutrition Rx: Carbohydrates: Meal:30-45g Snack:15-30g Nutrition Diagnosis: - Inconsistent protein intake r/t elimination of meat aeb pt report and diet recall Intervention: This participant was very receptive. Provided appropriate educational handouts. Discussed the following topics: Completed intake assessment. Discussed barriers to care. Pathophysiology of T2DM HgA1c, its correlation to blood glucose numbers, and rationale for goal Importance of self-monitoring, how often, and when to check. Suggested checking at different times to evaluate meals Plate Method, impact of macronutrients on blood sugar, meal timing, carbohydrate counting, pairing macronutrients and spreading out carbohydrates for better blood glucose management Recommended servings for carbohydrates at meals and snacks Recommended servings for protein at meals/snacks, vegetarian options Heart health nutrition Brainstormed appropriate meal plan based on food preferences Role of physical activity and following provider guidelines for safety Supplements Created SMART goals for patient self-care and success. Goals: Add beans to salad at lunch At 3p cheese or pb with snack Eat protein 4x per day Follow-up: TANISHA HALL follow-up in 3-4 weeks Martha Davis RDN, ISABEL Certified Diabetes Care and Washroom Attendant P: [phone] Thank you for this referral
== END ==
PROVIDERS: Family Provider Internal Medicine; PCP Physician Assistant; Referring Provider Physician Assistant; Visit Provider Physician Assistant
DX: E11.9 Type 2 diabetes mellitus without complications (principal); Z71.3 Dietary counseling and surveillance; Z79.84 Long term (current) use of oral hypoglycemic drugs; Z79.85 Long-term (current) use of injectable non-insulin antidiabetic drugs
CPT/HCPCS: 97802

== ENCOUNTER → 2025-04-18 10:15 | Outpatient (CLI) | payer MEDICARE, MEDICAID, SELFPAY ==
--- NOTE | 2025-04-18 11:03 | DIAB.MNTFU ---
Follow-up Diabetes Medical Nutrition Therapy Assessment Name: Aurora Tomas Date: 04/18/25 Time: Dx: Type II Diabetes Provider: Timbo Simon presents for Dm visit. Diagnosed 40 years ago. Recent HgA1c of 8.3%. Mounjaro titrated to 5mg on 03/29. Also on Metformin and Jardiance. Endorses reduced appetite, though is trying to be conscious of eating frequency. Adding protein to diet more frequently, as previously discussed. wt today indicates 13# loss. Endorses knees feel better with lower wt. Reports feeling shaky at 110mg/dl. Reports daily BM. Taking Miralax 1x per week. Daily fiber supplement. Diet Recall: 7am: sf Vietnamese yogurt 945am: banana 1pm: salad with 1/4-1/2c beans and cheese OR cottage cheese 3p: nothing 5p: salad with beans, yogurt OR half c pasta with turkey water tea sf gatorade Anthropometrics: Ht: 65 Wt: 219# 04/18/25 232# 02/2025 Physical Activity: Daily walks with son about 1 hour. Has stationary bike for rainy day exercising. Self-Monitoring Blood Glucose: FBG improved and now under 150mg/dl, compared to previous BG. Most readings in goal and/or improved. Date Pre Post Pre Post Pre Post HS 04/12 130 170 138 04/13 130 130 120 04/14 140 04/15 140 110 140 04/16 135 150 04/17 140 122 130 04/18 130 Diabetes Medications: 5mg Mounjaro 1000mg Metformin BID 25mg Jardiance Pertinent Labs: hgA1c: 8.3% 02/2025 Past Medical History: (Last Reviewed 10/04/23 @ 03:13 by Carol Scruggs MD) Asthma Carpal tunnel syndrome Cervical lymphadenitis Cervical spine disease Chronic back pain Chronic, continuous use of opioids Cubital tunnel syndrome Diabetic neuropathy associated with diabetes mellitus due to underlying condition DJD (degenerative joint disease), cervical Elevated lipids Essential hypertension Family history of clotting disorder Fibromyalgia Gout H/O: HTN (hypertension) History of asthma History of bipolar disorder History of urinary incontinence Hx of non-insulin dependent diabetes mellitus Menopausal syndrome Mixed hyperlipidemia Osteopenia Patellofemoral arthralgia of both knees Primary osteoarthritis Type 2 diabetes mellitus with diabetic polyneuropathy Wears glasses Nutrition Rx: Carbohydrates:Meal:30-45gSnack:15-30g Nutrition Diagnosis: - Inconsistent protein intake r/t elimination of meat aeb pt report and diet recall- improved/in progress Intervention: This participant was very receptive. Provided appropriate educational handouts. Discussed the following topics: Protein choices Encouraged regular intake q 3-5 hours Reviewed Bg goals and s/s of hypoglycemia and tx Appetite changes with GLP1 [employer] Created SMART goals for patient self-care and success. Goals: Add beans to salad at lunch- met At 3p cheese or pb with snack- not met Eat protein 4x per day - 75% met Add boiled eggs back into diet- new if feeling low, but >70mg/dl, eat a snack- new Add cheese to morning snack - new Follow-up: TANISHA HALL follow-up in 3-4 weeks Martha Davis RDN, ISABEL Certified Diabetes Care and Osteology Teacher P: [phone] Thank you for this referral
== END ==
LOC: DIET 10:16
PROVIDERS: Family Provider Internal Medicine; PCP Physician Assistant; Referring Provider Physician Assistant
DX: E11.9 Type 2 diabetes mellitus without complications (principal); Z71.3 Dietary counseling and surveillance
CPT/HCPCS: 97803